=== PATIENT | male | born 1955 | race Caucasian/White ===

== ENCOUNTER 2023-09-28 17:17 | Inpatient (IN) | payer MEDICARE, OTHER, SELFPAY ==
[2023-09-28] VITALS (34 sets, daily range): BP systolic 127–242; BP diastolic 49–162; BMI 38.0
[2023-09-28] MEDS: TRANDATE 10 MG IV (13:08)
[2023-09-28 13:21] LABS: % Basophils 1.1 % (0-2); % Eosinophils 3.6 % (0-6); % Immature Granulocytes 0.3 % (0-0.5); % Lymphocytes 32.7 % (20.5-51.1); % Monocytes 6.8 % (1.7-9.3); % Neutrophils 55.5 % (42.2-75.2); Absolute Basophils 0.1 10^3/uL (0-0.2); Absolute Eosinophils 0.4 10^3/uL (0-0.7); Absolute Lymphocytes 3.3 10^3/uL (1.2-3.4); Absolute Monocytes 0.7 10^3/uL (0.1-0.6); Absolute Neutrophils 5.5 10^3/uL (1.4-6.5); Hematocrit 45.6 % (39.0-52.0); Hemoglobin 16.6 g/dL (13.0-18.0); Mean Corp Hgb Conc. 36.4 g/dL (33.0-37.0); Mean Corpuscular Hgb 31.1 pg (27.0-31.0); Mean Corpuscular Volume 85.6 fL (80.0-94.0); Mean Platelet Volume 10.9 fL (7.4-10.4); Nucleated Red Blood Cells % 0 % (-); Platelet Count 217 10^3/uL (130-400); Red Blood Cell Count 5.33 10^6/uL (4.70-6.10); Red Cell Dist. Width 12.8 % (11.5-14.5)
[2023-09-28 13:30] LABS: ALT (SGPT) 26 U/L (0-50); AST (SGOT) 19 U/L (17-59); Albumin 4.1 g/dl (3.5-5.0); Alkaline Phosphatase 95 U/L (38-126); Blood Urea Nitrogen 15 mg/dl (9-20); Calcium 9.4 mg/dl (8.4-10.2); Carbon Dioxide 28 mmol/L (22-30); Glucose 291 mg/dl (70-99); Total Bilirubin 0.7 mg/dl (0.2-1.3); Total Protein 7.6 g/dl (6.3-8.2); eGFR > 60.00
[2023-09-28] MEDS: TRANDATE 20 MG IV (13:35)
[2023-09-28 13:41] LABS: Troponin I 0.017 ng/ml
[2023-09-28 13:50] LABS: Chloride 98 mmol/L (98-107); Potassium 3.5 mmol/L (3.5-5.1); Sodium 135 mmol/L (135-145)
--- NOTE | 2023-09-28 14:57 | ED.CVA ---
History of Present Illness
General
Chief Complaint: CVA/TIA Symptoms
Source: patient and spouse
Exam Limitations: none
Time Seen by Provider: 09/28/23 12:43
Onset of Stroke Symptoms
Onset of symptoms known: No
Time pt last seen normal is known: No
Travel History
Have you had any contact with someone who has COVID-19?: No
Do you have any symptoms of coronavirus? Fever > 100 degrees, chills, cough, shortness of breath, sore throat, loss of taste or smell, muscle aches, or headache?: No
History of Present Illness
History of Present Illness:
67-year-old male who presents after his has noticed over the last week that he has had episodes of slurred speech, difficulty walking and just lethargy. She states for period of time he has had episodes of falling asleep during daytime. She
states he will fall asleep during dinner with friends. Others have also noticed these changes. The patient states he feels fine. He specifically denies chest pain. He is aware that sometimes he falls asleep when he should not. The patient has
not seen a doctor in 13 years. states that 13 years ago they were concerned about his blood pressure and started him on an CELIO inhibitor. The patient states he started coughing so stopped it after 1 week and has not followed up since. They
also were concerned about his blood glucose. also states that he snores a lot. He often has apnea. He is not treated for obstructive sleep apnea. Patient specifically denies chest pain, motor weakness, headache.
Past History
Past History
ED Past Medical History: HTN and NIDDM
Social History
Tobacco: Non-smoker
Alcohol: None
Phy Exam
Physical Exam
Physical Exam:
CONSTITUTIONAL Patient alert and oriented to person, place and time. Well-appearing. Vital signs reviewed. Uncontrolled hypertension
HEAD atraumatic, normocephalic.
EYES eyelids normal to inspection, Pupils equally round and reactive to light, Extraocular muscles intact, Conjunctiva normal, Sclera normal.
NECK normal range of motion, Trachea midline, no jugular venous distention.
RESPIRATORY CHEST No respiratory distress noted, Chest expansion equal, Bilateral breath sounds clear.
CARDIOVASCULAR regular rate and rhythm, Heart sounds normal.
ABDOMEN abdomen nontender, Bowel sounds normal. No distention.
BACK normal inspection, no obvious deformities
UPPER EXTREMITY range of motion normal, Motor strength normal, no cyanosis, no edema.
LOWER EXTREMITY range of motion normal, Motor strength normal, no cyanosis, no edema.
NEURO Speech normal, No focal motor deficits, [place] coma scale 15, Memory normal, Cranial Nerves intact to screening exam. No pronator drift. Normal [id number]
SKIN skin warm, dry, and normal in color.
PSYCHIATRIC patient oriented to person place and time, Normal affect.
Course
Orders/Labs/Results
Orders:
Orders
09/28/23 Lunch
1800 calorie (15 carb) Diabetic
At Your Request: Full Participation
09/28/23 12:56
CT Head W/o Iv Contrast Urgent
Comment:
Reason For Exam: hypertensive emergency, speech changes
Cardiac Monitoring- Treatment ONCE
09/28/23 12:57
Electrocardiogram (*1) Stat
Reason for Study: Other
Other Reason for Exam: neuro symptoms
EKG- Treatment ONCE
Labetalol HCl [Trandate] 10 mg IV NOW STA
09/28/23 13:05
Complete Blood Count/With Diff Urgent
Comprehensive Metabolic Panel Urgent
Glycohemoglobin (HgbA1c) Urgent
Troponin I Urgent
09/28/23 13:32
Labetalol HCl [Trandate] 20 mg IV NOW STA
09/28/23 14:02
Nicardipine 40 mg/200 ml [Cardene] 40 mg in 200 ml IV NOW
Initial dose in mg/hr, then titrate:: 5
Titrate to keep:: BP < 180/105 mmHg
Titrate by mg/hr:: 2.5 mg/hr
Frequency of titrations (minutes):: 5-15 minutes
Maximum dose in mg/hr:: 15
Begin to taper infusion when:: Remained at goal for 2hrs
Taper by mg/hr:: 2.5 mg/hr
Frequency of taper (minutes) if patient maintains goal:: 15-30 minutes
Taper to off?: Yes
If infusion off & no longer maintaining goal:: Contact Provider
09/28/23 15:23
Add On- LAB Routine
Tests Added?: A1c
09/28/23 16:58
Admit/Transfer Patient As Directed
Co-Sign Provider:
Level of Care: Inpatient admission
Assign to:: IMU- Intermediate Care
Physician / Group: Kenzie Perez
Diagnosis: Hypertensive Urgency/Emergency
Reason for Hospitalization: Hypertensive Urgency/Emergency
Expected length of stay greater than two midnights?: Yes
ELOS- Estimated Length of Stay in days: 2
I certify the patient meets the requirements for IP care: Yes
09/28/23 16:59
Code Status As Directed
Resuscitation Status: Full Code
09/28/23 17:06
Dextrose 50%-Water [Dextrose 50% Syringe] 12.5 grams IV [id number] PRN
Glucagon [GlucaGen] 1 mg IM PRN PRN
Bedside Glucose Monitoring As Directed
Frequency: AC&HS
Additional Instructions:: Change to q6h if pt on TPN, tube feeding or not eating
09/28/23 17:59
Acetaminophen [Tylenol] 650 mg PO Q4HPRN PRN
Bisacodyl [Dulcolax] 10 mg RECTAL [id number] PRN
Docusate W/Senna [Senokot-S] 1 tablet PO BIDPRN PRN
Nicardipine 40 mg/200 ml [Cardene] 40 mg in 200 ml IV PER PROTOCOL
Currently infusing. Continue current dose and titrate:: Yes
Titrate to keep:: SBP 140 - 160 mmHg
Titrate by mg/hr:: 2.5 mg/hr
Frequency of titrations (minutes):: 5-15 minutes
Maximum dose in mg/hr:: 15
Begin to taper infusion when:: Remained at goal for 2hrs
Taper by mg/hr:: 2.5 mg/hr
Frequency of taper (minutes) if patient maintains goal:: every 15-30 minutes
Taper to off?: Yes
If infusion off & no longer maintaining goal:: Contact Provider
Polyethylene Glycol Powder [Miralax] 17 grams PO DAILYPRN PRN
09/28/23 17:59
Activity As Directed
Activity Level: With Assistance
Neurological Checks As Directed
Frequency: q4h
Additional Instructions:: Q4H while awake
Precautions As Directed
Type of Precautions: Other
Comment: fall precautions
Vital Signs As Directed
Frequency: Per unit guidelines
O2 Therapy [RESP] Routine
Titrate/Wean O2 to maintain O2 sat greater than (%): 92
Pulse Ox/nocturnal-trend w prt [RESP] Routine
Quantity: 1
Desired Oxygen Setting: room air
Ot Eval And Treat Routine
Pt Eval And Treat Routine
Activity Level: With Assistance
DX Deep Vein Thrombosis Video Routine
09/28/23 18:00
Aspirin Chewable [Low Strength Aspirin] 81 mg PO DAILY
Atorvastatin [Lipitor] 40 mg PO QPM
Enoxaparin Sodium [Lovenox] 40 mg SC QPM
09/28/23 20:16
Venous Blood Gas Routine
%Oxygen/Room Air: 92
09/29/23 06:00
Basic Metabolic Panel IN AM
Complete Blood Count/No Diff IN AM
Lipid Profile [Cardiovascular Evaluation] IN AM
Magnesium IN AM
09/29/23 07:30
Insulin Aspart Corrective Low [Novolog Flexpen-Low Resistance] See Protocol SC AC
09/30/23 06:00
Basic Metabolic Panel IN AM
Complete Blood Count/No Diff IN AM
Magnesium IN AM
10/01/23 06:00
Basic Metabolic Panel IN AM
Complete Blood Count/No Diff IN AM
Magnesium IN AM
10/02/23 06:00
Basic Metabolic Panel IN AM
Complete Blood Count/No Diff IN AM
Magnesium IN AM
10/03/23 06:00
Basic Metabolic Panel IN AM
Complete Blood Count/No Diff IN AM
Magnesium IN AM
10/04/23 06:00
Basic Metabolic Panel IN AM
Complete Blood Count/No Diff IN AM
Magnesium IN AM
10/05/23 06:00
Basic Metabolic Panel IN AM
Complete Blood Count/No Diff IN AM
Magnesium IN AM
Abnormal Lab Results
09/28/23
13:05
MCH 31.1 H pg
(27.0-31.0)
MPV 10.9 H fL
(7.4-10.4)
Absolute Monos (auto) 0.7 H 10^3/uL
(0.1-0.6)
Glucose 291 H mg/dl
(70-99)
09/28/23 13:05
09/28/23 13:05
Vital Signs
Initial and Last Documented VS:
Initial Vital Signs
Temp Pulse Resp BP Pulse Ox
98.2 F 81 20 242/162 96
09/28/23 11:55 09/28/23 11:55 09/28/23 11:55 09/28/23 11:55 09/28/23 11:55
Last Documented Vital Signs
Temp Pulse Resp BP Pulse Ox
98.6 F 72 15 153/93 93
09/28/23 20:19 09/28/23 17:30 09/28/23 17:30 09/28/23 17:30 09/28/23 17:30
MDM/Problems Addressed
MDM/Problems Addressed:
Hypertensive emergency, obstructive sleep apnea, hyperglycemia
*Radiology
Radiology exam reviewed: preliminary read by ED provider (No obvious bleeding on CT) and radiology read reviewed
*Pulse Oximetry
Patient hypoxic: no
*EKG
Interpreted by ED Provider?: Yes
Interpretation: abnormal
Rate: normal
Rhythm: sinus
QRS Pattern: left vent hypertrophy
Ischemia: non-specific ST changes
*[employer] Interpretation
Rate: normal
Interpretation: normal
Rhythm: sinus
*Critical Care Note
Total Time (30-74mins, 75-104mins- exclusive of procedures): 40 minutes
Data Reviewed
Source: patient and family
Prescriptions/Medications Considered But Not Given:
Labetalol drip but will move forward with Cardene.
Patient Management
Discussion with other providers: Hospitalist
Escalation/DeEscalation of care consider admission/obs:
67-year-old male who presents with variety of symptoms. Suspect much of his symptoms related to uncontrolled hypertension. In addition, patient has severe obstructive sleep apnea. Mild improvement after IV labetalol. Initiate drip. Admit
ED Attending Note
-
Portions of this chart may have been created with voice recognition software.� Occasional wrong word or��sound alike� substitutions may have occurred due to the inherent limitations of voice recognition software.
Discharge Plan
Departure
Patient Disposition: Admit
Date of Disposition: 09/28/23
Time of Disposition: 15:06
Admit to: Telemetry
Presentation/result/management discussed w/ accepting MD/DO: Hospitalist
Discharge Problem:
Hypertensive emergency, Obstructive sleep apnea, Diabetes mellitus, new onset
Interventions
Interventions:
*Risk Screen - Suicide Last Done: 09/28/23 11:55
*General Assessment Last Done: 09/28/23 11:55
*Neglect/Abuse Screening Last Done: 09/28/23 11:55
ED- Fall Risk Assessment Last Done: 09/28/23 17:38
*ED COVID-19 Vaccine History Last Done: 09/28/23 17:38
*Nursing Disposition Last Done: 09/28/23 17:38
ED- Pulmonary Assessment Last Done: 09/28/23 17:40
ED- Neurological Assessment Last Done: 09/28/23 14:53
ED- Cardiac Assessment Last Done: 09/28/23 14:53
Discharge Date and Time
Discharge Date/Time: 09/28/23 17:40
[2023-09-28] MEDS: CARDENE 200 IV ×2 (15:00→21:18)
--- NOTE | 2023-09-28 15:29 | HPS.HSE ---
Family Physician
-
Family Physician: Toni Goldberg
Chief Complaint
-
Altered mental status
History of Present Illness
67 male history hypertension obesity lost to follow-up has not seen a doctor in 13 years brought in by family due to concerns altered mental status lethargy falling asleep in the middle of the day slurring speech progressive for the last month
acutely worsening over the last week. Denies headache lightheadedness fevers chills nausea vomiting diarrhea constipation chest abdomen pain palpitations. Reports polyuria polyphagia polydipsia. also reports severe snoring at night patient
occasionally stops breathing while sleeping. Never formally diagnosed with sleep apnea but strongly suspected. ED eval was significant for hypertensive urgency/emergency initial blood pressure 242/162. Labetalol was attempted twice without
effect. Patient was placed on Cardene gtt. with subsequent improvement. Rest of vital signs stable afebrile on room air. EKG sinus rhythm with first-degree block nonspecific ST-T abnormalities. CT head noted no acute abnormalities signs of
chronic microvascular ischemic disease possible chronic infarct/ex vacuo dilatation right parietal lobe. NIH scale 0 no significant signs of stroke at this time.
Medical History
Past Medical History
Past Medical History: Reports Other (As above)
Past Surgical History: Reports Other (As above)
Social History
Tobacco: Former Smoker
Alcohol: Occasional
Drug: None
Personal:
Living: With Family
Family History
Family History: Diabetes, Hypertension and Other (Mother and father had diabetes and hypertension, aunt of stroke in her 60s)
Allergies / Home Medications
Allergies reflects when Allergies were last updated in [facility].
Home Medications with original date entered in [facility]
Allergy/Medication List:
Allergies
Allergy/AdvReac Type Severity Reaction Status Date / Time
No Known Allergies Allergy Verified 09/28/23 12:00
Home Medications
omega 1-wij-djv-fish oil 1,000 mg (120 mg-180 mg) capsule (Fish Oil) 1 cap PO DAILY 09/28/23
Review of Systems
-
A 12 point ROS was completed and negative except as noted: Yes
Constitutional: Reports Other (as below)
Physical Exam
Vital Signs
Vital Signs
Temp Pulse Resp BP Pulse Ox
98.2 F 68 17 186/111 93
09/28/23 11:55 09/28/23 14:45 09/28/23 14:45 09/28/23 14:45 09/28/23 14:45
Physical Exam
General: Other (as below)
Laboratory Results
-
09/28/23 13:05
09/28/23 13:05
Laboratory Results
Total Bilirubin 0.7 mg/dl (0.2-1.3) 09/28/23 13:05
AST 19 U/L (17-59) 09/28/23 13:05
ALT 26 U/L (0-50) 09/28/23 13:05
Alkaline Phosphatase 95 U/L (38-126) 09/28/23 13:05
Troponin I 0.017 ng/ml 09/28/23 13:05
Impression/Plan
-
ROS
General: Denies fever chills night sweats unexpected weight loss
Neuro: Reports lethargy daytime sleepiness intermittent slurring of speech gait disturbance denies falls
Psych: denies depression hallucinations confusion manic episodes
Endocrine: Reports polyuria polydipsia polyphagia
HEENT: Denies blindness visual disturbances epistaxis reports significant snoring at night occasionally stops breathing while sleeping
Pulmonary: denies coughing hemoptysis sneezing sob dyspnea on exertion
Cardiovascular: denies chest pain palpitations leg swelling
Hematology: denies signs symptoms of anemia easy bruising/bleeding
Gastrointestinal: denies nausea vomiting diarrhea constipation hematemesis hematochezia melena
Genito-Urinary: denies retention incontinence dysuria
Musculoskeletal: denies joint pain weakness
Dermatology: denies rash laceration bruising
Physical Exam
General: No pallor, cyanosis, or jaundice.
HEENT: Throat clear. PERRLA Normocephalic atraumatic
NECK: Supple. No JVD Carotid Bruits
RESPIRATORY: Lungs clear to auscultation. No crackles wheezes stridor
CVS: S1, S2 normal. RRR. No murmur, rub or gallop.
ABDOMEN: Soft, non-tender. No distension. BS+/normal.
EXTREMITIES: No peripheral cyanosis or edema. strength equal all ext's 5/5
BAGEL MAKER: AOx3. No focal deficits. Finger to nose and heel to jordan tests wnl
IMPRESSION:
67 male history hypertension obesity lost to follow-up has not seen a doctor in 13 years brought in by family due to concerns altered mental status lethargy falling asleep in the middle of the day slurring speech progressive for the last month
acutely worsening over the last week. Denies headache lightheadedness fevers chills nausea vomiting diarrhea constipation chest abdomen pain palpitations. Reports polyuria polyphagia polydipsia. also reports severe snoring at night patient
occasionally stops breathing while sleeping. Never formally diagnosed with sleep apnea but strongly suspected. ED eval was significant for hypertensive urgency/emergency initial blood pressure 242/162. Labetalol was attempted twice without
effect. Patient was placed on Cardene gtt. with subsequent improvement. Rest of vital signs stable afebrile on room air. EKG sinus rhythm with first-degree block nonspecific ST-T abnormalities. CT head noted no acute abnormalities signs of
chronic microvascular ischemic disease possible chronic infarct/ex vacuo dilatation right parietal lobe. NIH scale 0 no significant signs of stroke at this time.
PLAN:
#Hypertensive urgency emergency
#CT head notes chronic microvascular ischemic disease possible chronic infarct right parietal lobe
IMU admit
Continue Cardene gtt. goal SBP 140-160, avoid overcorrection due to likely chronic uncontrolled hypertension for years
Cardio eval
Neurochecks every 4 while awake
NIH scale per protocol
Aspirin statin
Follow-up a.m. lipid panel
#Hyperglycemia suspect diabetes
#Likely metabolic syndrome
#Obesity
Follow-up A1c
Low-dose sliding scale for now
#Likely obstructive sleep apnea
Check VBG, will consider bedtime CPAP or BiPAP if pCO2 is elevated
Outpatient sleep study recommended
Checking nocturnal saturation study
#Obesity
DVT prophylaxis Lovenox
Full code
Discussed with patient, patient's Leeanne, and patient's Daughter Olivier
I spent a total of 85 minutes with the patient or on the floor. More than 50% of this time involved counseling and coordination of care.
--- NOTE | 2023-09-28 18:10 | PTCARENOTE ---
Rec'd pt from ER on cardene gtt. Goal to maintain SBP 140-160...see intervention. Pt rec'd A&Ox3. Pleasant. Denies any pain. NIHSS 0...no deficits noted upon arrival. BACON's. S1 S2 reg w/ NSR on monitor. +PP. No edema. On r/a...sats 93%.
Lungs clear. Abdomen round...+BS. Urinal at bedside. Skin intact. 20P LAC w/ cardene gtt infusing. VS documented. Diet ordered...po meds given w/o issue. at bedside...all questions answered and ICU contact card provided. Call meléndez
within reach. Will continue to monitor.
[2023-09-28 18:29] LABS: Glucose - Point of Care 291 mg/dl (70-99)
[2023-09-28] MEDS: LIPITOR 40 MG PO (18:41)
[2023-09-28] MEDS: LOW STRENGTH ASPIRIN 81 MG PO (18:41)
[2023-09-28] MEDS: LOVENOX 40 MG SC (18:42)
[2023-09-28] MEDS: NOVOLOG FLEXPEN-LOW RESISTANCE 3 UNITS SC (18:43)
[2023-09-28 20:23] LABS: Venous Blood Gas B.E. 1.9 mmol/L (-4 to +4); Venous Blood Gas HCO3 25.7 mmol/L (22-27); Venous Blood Gas pCO2 37 mmHg (35-48); Venous Blood Gas pH 7.45 (7.32-7.43); Venous Blood Gas pO2 175 mmHg (30-50)
[2023-09-28 23:53] LABS: Glucose - Point of Care 361 mg/dl (70-99)
[2023-09-29] VITALS (84 sets, daily range): BP systolic 107–202; BP diastolic 56–135; PULSE 78–92; BMI 38.7
[2023-09-29] MEDS: NOVOLOG FLEXPEN 10 UNITS SC (00:05)
[2023-09-29] MEDS: CARDENE 200 IV ×3 (01:26→20:48)
[2023-09-29 02:36] LABS: Glucose - Point of Care 278 mg/dl (70-99)
[2023-09-29] MEDS: NOVOLOG FLEXPEN 7 UNITS SC (03:32)
--- NOTE | 2023-09-29 05:22 | PTCARENOTE ---
Cardene gtt turned off per protocol.
[2023-09-29 05:45] LABS: Hematocrit 43.6 % (39.0-52.0); Hemoglobin 15.6 g/dL (13.0-18.0); Mean Corp Hgb Conc. 35.8 g/dL (33.0-37.0); Mean Corpuscular Hgb 30.5 pg (27.0-31.0); Mean Corpuscular Volume 85.2 fL (80.0-94.0); Mean Platelet Volume 10.8 fL (7.4-10.4); Platelet Count 220 10^3/uL (130-400); Red Blood Cell Count 5.12 10^6/uL (4.70-6.10); Red Cell Dist. Width 12.6 % (11.5-14.5); White Blood Cell Count 10.7 10^3/uL (4.8-10.8)
[2023-09-29 05:57] LABS: Blood Urea Nitrogen 22 mg/dl (9-20); Calcium 9.5 mg/dl (8.4-10.2); Carbon Dioxide 24 mmol/L (22-30); Chloride 100 mmol/L (98-107); Estimated Creatinine Clearance 96 ml/min; Glucose 220 mg/dl (70-99); HDL Cholesterol 34 mg/dl; LDL Cholesterol, Calculated 123 mg/dl; Magnesium 1.7 mg/dl (1.6-2.3); Sodium 135 mmol/L (135-145); Total Cholesterol 219 mg/dl (50-199); Triglyceride 314 mg/dl (10-149); Very Low Density Lipoprotein 62 mg/dl (0-30); eGFR > 60.00
[2023-09-29] MEDS: KCL 40 MEQ PO (06:35)
--- NOTE | 2023-09-29 07:16 | CON.INTV ---
Consultation
Consultation Request
Date/Time Consultation Requested: 09/29/23
Date/Time Consultation Performed: 09/29/23
Performing Provider: See
Reason for Consultation: ICU
Medical History
-
History of Present Illness:
67 year old male with history of hypertension, obesity, medical noncompliance (has not seen a doctor in 13 years) presenting to ER for altered mental status/lethargy/slurring speech over the past week. He had EDS noted with snoring/apneas as
well, never had a sleep study. Does report polyuria, polydipsia.
In ER, initial blood pressure noted to be 242/162. Labetalol was attempted twice without effect. Patient was placed on Cardene gtt with subsequent improvement. EKG sinus rhythm with first-degree block nonspecific ST-T abnormalities. CT head
noted no acute abnormalities signs of chronic microvascular ischemic disease possible chronic infarct/ex vacuo dilatation right parietal lobe.
He is a former smoker, 1/2-1 PPD for 30 years, quit around age 52.
Drinks about 2-3 beers daily.
Admitted to ICU for cardene gtt.
Past Medical History
Past Medical History: Other (see list below)
Social History
Tobacco: Former Smoker
Alcohol: Daily
Drug: None
Family History
Family History: Reviewed & Not Pertinent
Allergies / Home Medications
Allergies
Allergy/AdvReac Type Severity Reaction Status Date / Time
No Known Allergies Allergy Verified 09/28/23 12:00
Home Medications
�Medication �Instructions �Recorded �Confirmed �Last Taken �Type
omega 6-ukj-emh-fish oil 1,000 mg 1 cap PO DAILY 09/28/23 09/28/23 09/27/23 History
(120 mg-180 mg) capsule (Fish Oil)
Review of Systems
-
History Source: Patient
All other systems: Negative unless noted
Vitals / Labs / Diagnostic Testing
Vital Signs
Temp Pulse Resp BP Pulse Ox
98.3 F 73 15 132/92 96
09/29/23 05:21 09/29/23 05:15 09/29/23 05:15 09/29/23 05:00 09/29/23 05:15
Lab Data
09/29/23 05:16
09/29/23 05:16
Diagnostic Testing:
Physical Exam
-
HEENT: Normocephalic, Anicteric and Moist Mucous Membranes
Cardiovascular: S1/S2 and Regular Rhythm
Respiratory: Clear and Non-Labored Respirations
GI: Soft, Non Distended and Non Tender
Neurology: Awake, Alert, Oriented and AO x 3
Skin: Warm, Dry and Good Color
General: Comfortable and Other (NAD)
Assessment
-
67 year old male with history of hypertension, obesity, medical noncompliance (has not seen a doctor in 13 years) presenting to ER for altered mental status/lethargy/slurring speech over the past week. In ER, initial blood pressure noted to be
242/162. Labetalol was attempted twice without effect. Patient was placed on Cardene gtt with subsequent improvement. CT head noted no acute abnormalities signs of chronic microvascular ischemic disease possible chronic infarct/ex vacuo
dilatation right parietal lobe. Admitted to ICU for cardene gtt.
Hypertensive emergency on cardene gtt
Possible old CVA noted on imaging
Hyperglycemia suspect diabetes
Suspect MITCHEL, + snoring/apneas/EDS
Slurred speech
Difficulty ambulating/lethargy
Hypokalemia
HLD
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
Obesity, BMI 38
Does not follow with medical care routinely
Plan
No current signs of metabolic encephalopathy or MS changes/following commands
CT head notes chronic microvascular ischemic disease possible chronic infarct right parietal lobe
Aspirin/statin
Denies pain at this time.
Pain/sedation: PRN
RASS goals: 0
Drinks about 2-3 beers daily, MSAS protocol as needed
Hypertensive emergency noted, placed on Cardene gtt.
Cardio eval
Cardiac history reviewed--HTN, tried on Lisinopril as OP
No prior ECHO obtained in past, can obtain new baseline study
Oxygen needs: stable on RA
Prior history of lung disease: none noted, smoking history noted
COPD suspected, can obtain PFT as OP
He is a former smoker, 1/2-1 PPD for 30 years, quit around age 52.
>15 years/quit date, does not qualify for yearly screening
Supplemental O2 as indicated to maintain sats > 89%
Overnight O2 study reviewed, will need PSG as OP for snoring/EDS/apneas
Advance diet
Aspiration precautions, HOB > 30 degrees
Speech therapy eval can be considered if at elevated risk
GI prophylaxis if indicated for mechanical ventilation >48 hours, prior history of GERD, stress ulcer formation in the critically ill
Creat at baseline, no history of renal disease
Void trials
Follow urine output, critical I/Os
Replete electrolytes as needed--replete K
No signs/symptoms suspicious for infectious etiology at this time
Observe off antibiotics for now
Follow fever trend, WBC count
CBC stable, no signs of bleeding or coagulopathy.
DVT prophylaxis as assessed based on risk, including mechanical SCDs
Can transfuse if indicated for Hb <7, plt < 10
No prior h/o diabetes or thyroid disease/known
Continue accuchecks PRN/SS coverage if needed
HbA1c 10.9%
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
If off cardene gtt, can likely transfer to tele
We will arrange OP FU for sleep
Diagnostic Data
Chest X-Ray:
CT Scan: HEAD 09/28/23- No acute intracranial abnormality. Moderate hypoattenuation and heterogeneity of the periventricular and deep white matter, most likely secondary to chronic microvascular ischemic disease. More focal area of hypoattenuation
within the posterior right parietal lobe which may represent a chronic infarct/ex vacuo dilatation.
Echo:
PFT's:
Reports and relevant images were personally reviewed.
-----
Critical care time 75 mins -- this includes review of history, physical exam, medications, hemodynamic/ventilator parameters, laboratory data, imaging and discussion with house staff, pharmacy, respiratory therapy, sandfill operator, and nursing.
[2023-09-29 08:15] LABS: Glucose - Point of Care 255 mg/dl (70-99)
--- NOTE | 2023-09-29 08:30 | PTCARENOTE ---
Received pt @ change of shift. Pt. drowsy, awakens to verbal stimuli; Ox3/forgetful @ x's. NIH completed w off going RN- see flow sheet. SR w 1st degree ABV. Cardene gtt infusing to keep SBP 140-160- see flow sheet. SpO2 96% on RA. +BS, abd
round/obese. Cont b/b. #20 R AC w cardene gtt infusing. Instructed on how to report care concerns and call meléndez in reach. Bed alarm active.
[2023-09-29] MEDS: NOVOLOG FLEXPEN-HIGH RESISTANCE 7 UNITS SC (09:05)
[2023-09-29] MEDS: LOW STRENGTH ASPIRIN 81 MG PO (09:09)
--- NOTE | 2023-09-29 09:17 | W.PN.HOSP.TC ---
Today's Communication/Plan
-
see bold
Assessment / Plan
Assessment / Plan
HPI: 67 male history hypertension obesity lost to follow-up has not seen a doctor in 13 years brought in by family due to concerns altered mental status lethargy falling asleep in the middle of the day slurring speech progressive for the last month
acutely worsening over the last week. Denies headache lightheadedness fevers chills nausea vomiting diarrhea constipation chest abdomen pain palpitations. Reports polyuria polyphagia polydipsia. also reports severe snoring at night patient
occasionally stops breathing while sleeping. Never formally diagnosed with sleep apnea but strongly suspected. ED eval was significant for hypertensive urgency/emergency initial blood pressure 242/162. Labetalol was attempted twice without
effect. Patient was placed on Cardene gtt. with subsequent improvement. Rest of vital signs stable afebrile on room air. EKG sinus rhythm with first-degree block nonspecific ST-T abnormalities. CT head noted no acute abnormalities signs of
chronic microvascular ischemic disease possible chronic infarct/ex vacuo dilatation right parietal lobe. NIH scale 0 no significant signs of stroke at this time.
#Hypertensive urgency emergency
#CT head notes chronic microvascular ischemic disease possible chronic infarct right parietal lobe
Appreciate cardiology and telemetry nurse input
Blood pressure now controlled on Cardene drip
Wean Cardene drip, cardiology started amlodipine 2.5 mg daily, valsartan 40 mg p.o. twice daily
Check B12/TSH
#Hyperlipidemia
Start atorvastatin 40 mg at bedtime
#Hypokalemia
Repleted by IV, magnesium okay
Recheck a.m.
#New onset type 2 diabetes, hemoglobin A1c 10.9
Consult diabetes nurse practitioner, Lantus started at 15 units at bedtime, NovoLog 5 units AC 3 times daily
Sliding scale insulin, diabetes education
#Likely obstructive sleep apnea
Outpatient sleep study recommended
#Obesity due to excess calories
Affects all aspects of care
DVT prophylaxis Lovenox
Full code
Updated at bedside 09/28
Total time spent to see the patient on the floor, examine the patient, review data and lab results, discuss treatment plan with patient, nursing staff around 50 minutes.
Physical Exam
General: Obese, no acute distress
HEENT: Normocephalic, Atraumatic, EOMI, MMM
Respiratory: Clear to Auscultation bilaterally
Cardiac: Normal S1/S2, Regular Rate and Rhythm
GI: Soft, Nontender, Nondistended, Normal Bowel Sounds
Extremities: No Clubbing, Cyanosis, or Edema
Neuro: Nonfocal/Grossly Intact
Psych: Calm, Cooperative
Derm: No Visible lesions
Anticipated Discharge: 24 - 48 hours
Subjective/Interval History
-
Date of Service: September 29, 2023
Patient's mentation much improved, almost back to baseline per . He is still slow to respond. No fever, no vomiting.
Objective Data
-
Labs:
Laboratory Results
09/29/23
05:16
WBC 10.7
Hgb 15.6
Hct 43.6
Plt Count 220
Sodium 135
Potassium 3.0 L
Chloride 100
Carbon Dioxide 24
BUN 22 H
Creatinine 1.0
Glucose 220 H
Calcium 9.5
Vital Signs:
Vital Signs
Temp Pulse Resp BP Pulse Ox
97.8 F 73 15 132/92 96
09/29/23 07:20 09/29/23 05:15 09/29/23 05:15 09/29/23 05:00 09/29/23 05:15
I&O
09/28/23 09/29/23 09/30/23
06:59 06:59 06:59
Intake Total 387.5 / 400.0 12. / 12.5
Output Total 720 / 720
Balance -332.5 / -320.0 12. 12.5
--- NOTE | 2023-09-29 09:34 | CON.CAR ---
Addendum entered and electronically signed by Dario Flores MD 09/29/23 12:14:
I saw and examined the patient.
The BRIM POUNCER's note was reviewed and I agree with the note.
Comment: No chest pain or dyspnea. Troponins negative. No dynamic ST or T wave changes. We will assist in managing his hypertension. We initiated statin therapy. Echo ordered. Defer any neurologic workup to primary service.
Initial potassium 3.5 but on repeat 3. For caution sake we will check Roger renin ratio but may more be related to diabetes and hydration.
Original Note:
Consultation
Consultation Request
Date/Time Consultation Requested: 09/28/2023 17:20
Date/Time Consultation Performed: 09/29/2023 09:40
Requesting Provider: Dr. Perez
Performing Provider: DAVID Vizcarra for Dr. Flores
Reason for Consultation: Hypertensive urgency/emergency
Medical History
-
Chief Complaint: Altered mental status
History of Present Illness:
This patient is a 67-year-old male who has not had regular medical care for about 13 years but a known history of hypertension and obesity who presented to the emergency department with change in mental status. He was brought in by his . She
reports over the last several months he has had issues with slurred speech, shuffling gait, and lethargy. His states he would have intermittent episodes of slurred speech that appeared almost as if he could not control his tongue. His gait
has also slowed down and he would shuffle his feet. Regarding his lethargy, he would fall asleep even while he was talking. He also appears more forgetful. She states when he sleeps he stops breathing and has very loud snoring. His change in
mental status was new which prompted emergency department room visit. When he arrived he was found to have a blood pressure of 242/162. He did not have any response to intravenous labetalol and was started on a Cardene drip. EKG showed
first-degree AV block with LVH and nonspecific ST�T abnormalities. Head CT showed chronic microvascular ischemic disease versus chronic infarct/ex vacuo dilation of the right parietal lobe. NIH 0. Cardiology was consulted for blood pressure
management.
Past Medical History
Past Medical History: HTN
Social History
Tobacco: Former Smoker
Alcohol: Occasional
Drug: None
Personal:
Living: With Family
Employment: Retired
Family History
Family History: Reviewed & Not Pertinent (Denies early CAD and SCD.)
Allergies / Home Medications
Allergy/AdvReac Type Severity Reaction Status Date / Time
No Known Allergies Allergy Verified 09/28/23 12:00
�Medication �Instructions �Recorded �Confirmed �Type
omega 1-suq-ilm-fish oil 1,000 mg 1 cap PO DAILY Supplement 09/28/23 09/28/23 History
(120 mg-180 mg) capsule (Fish Oil)
Review of Systems
-
History Source: Patient
All other systems: Negative unless noted
Constitutional: Fatigue
Respiratory: No Symptoms
Cardiac: No Symptoms
Endocrine: Polyuria and Polydipsia
Physical Exam
Vital Signs
Temp Pulse Resp BP Pulse Ox
97.8 F 73 15 132/92 96
09/29/23 07:20 09/29/23 05:15 09/29/23 05:15 09/29/23 05:00 09/29/23 05:15
Lab Results
09/29/23 05:16
09/29/23 05:16
Troponin I 0.017 ng/ml 09/28/23 13:05
Physical Exam
General: Well Developed, Well Nourished, No Apparent Distress and Comfortable
HEENT: Normocephalic, Anicteric and Moist Mucous Membranes
Respiratory: Clear and Non Labored Respirations
Cardiac: S1/S2 and Regular Rhythm
Breast: Deferred by me
GI: Soft, Non Tender, Non Distended and Normal Bowel Sounds
Rectal: Deferred by Provider
Genito-urinary: No Costovertebral Tender
Musculoskeletal: No Clubbing, No Cyanosis and No Edema
Skin: Warm and Dry
Neuro: AO x 3
Hematologic/Lymphatic: No Lymphadenopathy
Psych: Calm
Impression / Plan
-
HTN Emergency
-He presented with change in mental status, hypertensive encephalopathy?
-On Cardene, start Valsartan 40mg BID & amlodipine and anticipate discontinuation of Cardene drip
-Self discontinued ACEi 13 years ago due to a cough
-LVH on EKG, echocardiogram ordered
Change in mental status, with associated shuffling gait, lethargy, and slurred speech, per primary
Type II DM, with hyperglycemia, new diagnosis, Hgba1c pending, per primary
Dyslipidemia, started on atorvastatin 40mg, triglycerides will likely improve with diabetic management
Suspected MITCHEL
Obesity, BMI 38, he would benefit from weight loss
Data Reviewed
-
EKG: Report Reviewed by me (Sinus rhythm, first degree AV block, LVH, non specific ST abnormality, rate 70)
CT Scan: Report Reviewed by me (Head: Moderate hypoattenuation and heterogeneity of the periventricular and deep white matter, most likely secondary to chronic microvascular ischemic disease. More focal area of hypoattenuation within the posterior
right parietal lobe which may represent a chronic infarct/ex vacuo dilatation.)
Labs: Labs Reviewed by me
[2023-09-29] MEDS: DIOVAN 40 MG PO ×2 (10:04→20:48)
[2023-09-29 10:09] LABS: Glycohemoglobin (HgbA1c) 10.9 % (4.0-5.6)
--- NOTE | 2023-09-29 11:52 | CM ---
CM following re: discharge planning.
Discussed in Rounds, reviewed pt's chart, met with pt.
Pt is a 67 year old male, admitted with primary dx of Hypertensive Urgency. PMH includes Obesity, sleep apnea.
Pt reports he lives with spouse 2SH, 2 steps to enter, has 2 supportive children. 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 No DME, VN or SNF history.
PCP: Toni Goldberg
Pharmacy: [facility]
D/c plan: home with anticipated no needs. Family to transport at discharge.
CM will follow with discharge plan updates as hospitalization progresses
[2023-09-29] MEDS: KCL 270 MEQ IV (12:23)
--- NOTE | 2023-09-29 12:30 | PTCARENOTE ---
Pt. worked w PT/OT, assisted x2 w RW to ambulate in room and into chair. Remains in chair. Tolerating meals. PO antihypertensives admin- see MAR. Remains on cardene gtt- see flow sheet, titrated/tapered per orders. Chair alarm active. @
bedside updated on plan of care.
[2023-09-29] MEDS: NORVASC 2.5 MG PO (12:53)
[2023-09-29 13:15] LABS: Glucose - Point of Care 276 mg/dl (70-99)
[2023-09-29] MEDS: NOVOLOG FLEXPEN 5 UNITS SC ×2 (14:54→17:25)
[2023-09-29] MEDS: NOVOLOG FLEXPEN-MODERATE RESISTANCE 5 UNITS SC (14:55)
[2023-09-29] MEDS: FOLVITE 1 MG PO (14:56)
[2023-09-29] MEDS: NOVOLOG FLEXPEN-HIGH RESISTANCE SC (14:59)
[2023-09-29] MEDS: NOVOLOG FLEXPEN-MODERATE RESISTANCE 3 UNITS SC (17:24)
--- NOTE | 2023-09-29 17:30 | PTCARENOTE ---
Cindyene gtt off @ [id number]-see flow sheet. Reassessed, no changes in previous assessments. Call medhat jasso in reach. Bed alarm active.
[2023-09-29 17:31] LABS: Glucose - Point of Care 208 mg/dl (70-99)
[2023-09-29] MEDS: LOVENOX 40 MG SC (18:08)
[2023-09-29] MEDS: LOPRESSOR 5 MG IV (18:08)
[2023-09-29] MEDS: LIPITOR 40 MG PO (18:08)
--- NOTE | 2023-09-29 19:42 | PTCARENOTE ---
rec'd patient. assessment as documented. oriented x3, handoff NIH 0. forgetful at times, bed alarm on. SR on monitor. SBP goal 140-160, PRN cardene gtt ordered as needed. on RA, denies SOB. pt repositions self in bed. call meléndez within reach, care
ongoing.
[2023-09-29] MEDS: VITAMIN B1 100 MG PO (20:48)
[2023-09-29 21:07] LABS: Glucose - Point of Care 200 mg/dl (70-99)
[2023-09-29] MEDS: LANTUS 0.149999999999999994 UNITS SC (21:11)
[2023-09-29] MEDS: ATIVAN 1 MG IV (23:25)
[2023-09-30] VITALS (51 sets, daily range): BP systolic 130–182; BP diastolic 84–141; BMI 38.7
[2023-09-30] MEDS: PRECEDEX 100 IV (00:25)
[2023-09-30] MEDS: ATIVAN 1 MG IV (00:25)
--- NOTE | 2023-09-30 00:47 | PTCARENOTE ---
pt reassessed. attempting to climb OOB, restless, difficult to redirect. PRN ativan given with no effect. ICU RESEARCH STATISTICIAN aware, precedex gtt ordered and initiated per protocol. now on 2L NC. cardene gtt restarted per protocol to maintain SBP between
140-160. bed alarm on.
[2023-09-30] MEDS: CARDENE 200 IV ×5 (02:23→22:19)
[2023-09-30 03:38] LABS: Hematocrit 41.7 % (39.0-52.0); Hemoglobin 15.4 g/dL (13.0-18.0); Mean Corp Hgb Conc. 36.9 g/dL (33.0-37.0); Mean Corpuscular Hgb 30.7 pg (27.0-31.0); Mean Corpuscular Volume 83.2 fL (80.0-94.0); Mean Platelet Volume 10.7 fL (7.4-10.4); Platelet Count 218 10^3/uL (130-400); Red Blood Cell Count 5.01 10^6/uL (4.70-6.10); White Blood Cell Count 13.5 10^3/uL (4.8-10.8)
[2023-09-30 04:33] LABS: Blood Urea Nitrogen 18 mg/dl (9-20); Calcium 9.2 mg/dl (8.4-10.2); Carbon Dioxide 25 mmol/L (22-30); Chloride 103 mmol/L (98-107); Estimated Creatinine Clearance 97 ml/min; Glucose 303 mg/dl (70-99); Magnesium 1.6 mg/dl (1.6-2.3); Sodium 135 mmol/L (135-145); eGFR > 60.00
[2023-09-30 04:51] LABS: TSH Reflex To Free T4 2.35 uIU/ml (0.47-4.68)
--- NOTE | 2023-09-30 05:00 | PTCARENOTE ---
pt reassessed, AM labs sent. cardene gtt titrated per SBP goal. precedex gtt off this morning. pt drowsy but arousable to voice, forgetful at times. care ongoing.
[2023-09-30 05:11] LABS: Vitamin B12 583 pg/ml (239-931)
[2023-09-30] MEDS: MAGNESIUM SULFATE 102 GRAMS IV (06:17)
--- NOTE | 2023-09-30 07:25 | W.PN.INTV ---
Addendum entered and electronically signed by Leeanne Cui DO 09/30/23 13:29:
agreeable to phenobarb taper, starting at mid dose
This would be less sedating and prevent seizures
Original Note:
Today's Communication / Plan
Recommendations
Questionable ETOH use, see note below
was agreeable to taper treatment for now
Continue to wean off BP meds/gtt, cards following
Neuro eval
Stop precedex
Assessment
-
67 year old male with history of hypertension, obesity, medical noncompliance (has not seen a doctor in 13 years) presenting to ER for altered mental status/lethargy/slurring speech over the past week. In ER, initial blood pressure noted to be
242/162. Labetalol was attempted twice without effect. Patient was placed on Cardene gtt with subsequent improvement. CT head noted no acute abnormalities signs of chronic microvascular ischemic disease possible chronic infarct/ex vacuo
dilatation right parietal lobe. Admitted to ICU for cardene gtt.
Hypertensive emergency on cardene gtt
Possible old CVA noted on imaging
Hyperglycemia suspect diabetes
Suspect MITCHEL, + snoring/apneas/EDS
Slurred speech
Difficulty ambulating/lethargy
Hypokalemia
HLD
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
Obesity, BMI 38
Does not follow with medical care routinely
Plan
Agitation overnight suggestive of ETOH w/d
CT head notes chronic microvascular ischemic disease possible chronic infarct right parietal lobe
Aspirin/statin
Denies pain at this time.
Pain/sedation: MSAS PRN
RASS goals: 0
Drinks about 2-3 beers dailythis was noted by patient
adamant that he does not drinksee note below
Consider neuro eval
Hypertensive emergency noted, placed on Cardene gtt.
Cardio eval--BP management ongoing
Cardiac history reviewed--HTN, tried on Lisinopril as OP
No prior ECHO obtained in past, can obtain new baseline study--reviewed stable
Oxygen needs: stable on RA
Prior history of lung disease: none noted, smoking history noted
COPD suspected, can obtain PFT as OP
He is a former smoker, 1/2-1 PPD for 30 years, quit around age 52.
>15 years/quit date, does not qualify for yearly screening
Supplemental O2 as indicated to maintain sats > 89%
Overnight O2 study reviewed, will need PSG as OP for snoring/EDS/apneas
Advance diet
Aspiration precautions, HOB > 30 degrees
Speech therapy eval can be considered if at elevated risk
GI prophylaxis if indicated for mechanical ventilation >48 hours, prior history of GERD, stress ulcer formation in the critically ill
Creat at baseline, no history of renal disease
Void trials
Follow urine output, critical I/Os
Replete electrolytes as needed--replete K
No signs/symptoms suspicious for infectious etiology at this time
Observe off antibiotics for now
Follow fever trend, WBC count
CBC stable, no signs of bleeding or coagulopathy.
DVT prophylaxis as assessed based on risk, including mechanical SCDs
Can transfuse if indicated for Hb <7, plt < 10
No prior h/o diabetes or thyroid disease/known
Continue accuchecks PRN/SS coverage if needed
HbA1c 10.9%
Diabetic CYTOGENETICS TECHNOLOGIST consult for management
If off cardene gtt, can likely transfer to tele
We will arrange OP FU for sleep
Family Discussions
See 09/30/23- angry/upset, yelling at staff about her 's drinking history. She is adamant he does not drink at all, maybe 1-2 drinks on the weekends and that if he did have drinks she would know. She feels he cannot possibly be drinking
without her knowledge and is upset that she must repeatedly say this to everyone. She is upset that he is 'labeled as an alcoholic.' She thinks he is too confused to be truthful about his history. He had told me yesterday that he smokes 1/2 PPD
and drinks 2-3 drinks almost every day, usually beers and states his has 2-3 glasses of wine as well. She does not believe this to be true. When asked her about stopping treatment in relationship to potential ETOH w/d and risk of
seizure/coma/ his now states if that she wants treatment. We will will proceed with treatment/taper in the event his history is true. This conversation was witnessed by CCRN, admin, CM and security.
Diagnostic Data
Chest X-Ray:
CT Scan: HEAD 09/28/23- No acute intracranial abnormality. Moderate hypoattenuation and heterogeneity of the periventricular and deep white matter, most likely secondary to chronic microvascular ischemic disease. More focal area of hypoattenuation
within the posterior right parietal lobe which may represent a chronic infarct/ex vacuo dilatation.
Echo: 09/29/23- LV ejection fraction is 70-75% by visual assessment. Moderate concentric left ventricular hypertrophy. Normal right ventricular size and function. Aortic valve sclerosis without stenosis.
Dilated aortic root with normal ascending aorta. No prior study available for comparison.
PFT's:
Reports and relevant images were personally reviewed.
-----
Critical care time 85 mins -- this includes review of history, physical exam, medications, hemodynamic/ventilator parameters, laboratory data, imaging and discussion with house staff, pharmacy, respiratory therapy, tattoo artist, and nursing.
Subjective Dataa
Subjective Data
Date of Service:
Date of Service: September 30, 2023
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
Subjective:
overnight developed acute agitation requiring multiple doses of ativan
started on precedex
tremors noted
at bedside
Objective Data
Data Reviewed
Vital Signs / I&O / Oxygen:
Vital Signs
Temp Pulse Resp BP Pulse Ox
98.4 F 58 13 148/88 96
09/30/23 04:14 09/30/23 06:30 09/30/23 06:30 09/30/23 06:30 09/30/23 06:30
Intake and Output
09/29/23 09/30/23 10/01/23
06:59 06:59 06:59
Intake Total 387.5 / 400.0 1494.5 / 1494.5
Output Total 720 / 720 810 / 810
Balance -332.5 / -320.0 684.5 / 684.5
SaO2 96
Nasal Cannula flow liters per 2
minute
Physical Exam
General: Comfortable and Other (NAD)
HEENT: Normocephalic, Anicteric and Moist Mucous Membranes
Cardiovascular: S1-S2 and Regular Rhythm
Respiratory: Clear and Non-Labored Respirations
GI: Soft, Non Distended and Non Tender
Neurology: Awake, Alert, Oriented, AO x 3, No Motor Deficits, Tremors and Other (mildly confused but able to answer questions)
Skin: Warm, Dry and Good Color
Labs/Micro/Reports
Lab Data
09/30/23 03:27
09/30/23 03:27
--- NOTE | 2023-09-30 07:47 | W.PN.HOSP.TC ---
Today's Communication/Plan
-
see bold
Assessment / Plan
Assessment / Plan
HPI: 67 male history hypertension obesity lost to follow-up has not seen a doctor in 13 years brought in by family due to concerns altered mental status lethargy falling asleep in the middle of the day slurring speech progressive for the last month
acutely worsening over the last week. Denies headache lightheadedness fevers chills nausea vomiting diarrhea constipation chest abdomen pain palpitations. Reports polyuria polyphagia polydipsia. also reports severe snoring at night patient
occasionally stops breathing while sleeping. Never formally diagnosed with sleep apnea but strongly suspected. ED eval was significant for hypertensive urgency/emergency initial blood pressure 242/162. Labetalol was attempted twice without
effect. Patient was placed on Cardene gtt. with subsequent improvement. Rest of vital signs stable afebrile on room air. EKG sinus rhythm with first-degree block nonspecific ST-T abnormalities. CT head noted no acute abnormalities signs of
chronic microvascular ischemic disease possible chronic infarct/ex vacuo dilatation right parietal lobe. NIH scale 0 no significant signs of stroke at this time.
#Hypertensive urgency emergency
#CT head notes chronic microvascular ischemic disease possible chronic infarct right parietal lobe
Appreciate cardiology and denial management representative input
Blood pressure now controlled on Cardene drip
Wean Cardene drip, increase amlodipine to 5 mg daily, valsartan 80 mg twice daily, cardiology also added hydrochlorothiazide 25 mg daily
#Subacute encephalopathy
B12/TSH normal
There is a questionable history of alcohol use, denies
Appreciate denial management representative input, his Precedex is changed to phenobarbital taper
Started on thiamine and folic acid
Neurology consulted
#History of old stroke on head CT
Started on aspirin 81 mg daily
#Hyperlipidemia
Started atorvastatin 40 mg at bedtime
#Hypokalemia
Repleted and resolved
#New onset type 2 diabetes, hemoglobin A1c 10.9
Diabetes nurse practitioner following, continue insulin adjustments
Sliding scale insulin, diabetes education
#Likely obstructive sleep apnea
Outpatient sleep study recommended
#Leukocytosis
Afebrile, no signs or symptoms of infection
Check chest x-ray and urinalysis for completeness sake
Monitor off antibiotics
#Obesity due to excess calories
Affects all aspects of care
DVT prophylaxis Lovenox
Full code
Updated at bedside 09/28
Total time spent to see the patient on the floor, examine the patient, review data and lab results, discuss treatment plan with patient, nursing staff around 51 minutes.
Physical Exam
General: Obese, no acute distress
HEENT: Normocephalic, Atraumatic, EOMI, MMM
Respiratory: Clear to Auscultation bilaterally
Cardiac: Normal S1/S2, Regular Rate and Rhythm
GI: Soft, Nontender, Nondistended, Normal Bowel Sounds
Extremities: No Clubbing, Cyanosis, or Edema
Neuro: Nonfocal/Grossly Intact
Psych: Calm, Cooperative
Derm: No Visible lesions
Anticipated Discharge: > 48 hours
Subjective/Interval History
-
Date of Service: September 30, 2023
Patient denies chest pain, denies shortness of breath. No fever, no vomiting.
Objective Data
-
Labs:
Laboratory Results
09/30/23
03:27
WBC 13.5 H
Hgb 15.4
Hct 41.7
Plt Count 218
Sodium 135
Potassium 4.0 D
Chloride 103
Carbon Dioxide 25
BUN 18
Creatinine 1.0
Glucose 303 H
Calcium 9.2
Vital Signs:
Vital Signs
Temp Pulse Resp BP Pulse Ox
97.4 F 58 13 148/88 96
09/30/23 07:45 09/30/23 06:30 09/30/23 06:30 09/30/23 06:30 09/30/23 06:30
I&O
09/29/23 09/30/23 10/01/23
06:59 06:59 06:59
Intake Total 387.5 / 400.0 1494.5 / 1634.0 139.5 / 139.5
Output Total 720 / 720 810 / 810
Balance -332.5 / -320.0 684.5 / 824.0 139.5 / 139.5
--- NOTE | 2023-09-30 08:00 | PTCARENOTE ---
Received pt @ change of shift. Drowsy, awakens to verbal stimuli. Mild speech slurring. NIH-2 for drowsiness/mild slurring. Confused/forgetful. Medicated w sedation meds overnight for increased MSAS. Current MSAS-2. Neuro checks maintained-
see flow sheet. Cardene gtt infusing- titrated/tapered to keep SBP between 140-160. PO antihypertensives admin w/out issue-see JUL. Bed alarm active. Pt. instructed on how to report care concerns and call meléndez in reach.
[2023-09-30 08:02] LABS: Glucose - Point of Care 364 mg/dl (70-99)
[2023-09-30] MEDS: NORVASC 2.5 MG PO ×2 (08:20→11:40)
[2023-09-30] MEDS: VITAMIN B1 100 MG PO ×2 (08:20→21:44)
[2023-09-30] MEDS: FOLVITE 1 MG PO (08:20)
[2023-09-30] MEDS: LOW STRENGTH ASPIRIN 81 MG PO (08:20)
[2023-09-30] MEDS: DIOVAN 40 MG PO ×2 (08:20→11:37)
[2023-09-30] MEDS: NOVOLOG FLEXPEN-MODERATE RESISTANCE 9 UNITS SC (08:22)
[2023-09-30] MEDS: NOVOLOG FLEXPEN 5 UNITS SC (08:22)
--- NOTE | 2023-09-30 08:32 | W.PN.CD ---
Today's Communication / Plan
-
- Will add HCTZ and observe
- wean nicardipine as possible
Impression / Plan
-
Impression: 67M with limited medical care presenting with 'new' severe hypertension, diabetes mellitus, and mental status changes.
Plan
HTN Emergency
-He presented with change in mental status.
-On Cardene, started Valsartan 40mg BID & amlodipine. Will add HCTZ and observe
-Self discontinued ACEi 13 years ago due to a cough
-LVH on EKG and echocardiogram ordered
Change in mental status
- as per primary
- got sedation overnight -> his answers to questions are all correct but very slow.
Type II DM, with hyperglycemia, new diagnosis, Hgba1c pending, per primary
Dyslipidemia, started on atorvastatin 40mg, triglycerides will likely improve with diabetic management
Suspected MITCHEL
Obesity, BMI 38, he would benefit from weight loss
Subjective: No CP, palps, or dyspnea.
Critically ill 34 minutes
TTE September 28: Normal EF, moderate LVH, aortic sclerosis, SOV 4.2 cm
Physical Exam
Vital Signs/Labs
Vital Signs
Temp Pulse Resp BP Pulse Ox
36.3 C 69 13 165/93 96
09/30/23 07:45 09/30/23 08:20 09/30/23 06:30 09/30/23 08:20 09/30/23 06:30
09/29/23 09/30/23 10/01/23
06:59 06:59 06:59
Actual Weight 264 lb 8.875 oz 269 lb 6.478 oz
09/30/23 03:27
09/30/23 03:27
Magnesium 1.6 mg/dl (1.6-2.3) 09/30/23 03:27
Triglycerides 314 mg/dl (10-149) H 09/29/23 05:16
LDL Cholesterol, Calc 123 mg/dl 09/29/23 05:16
VLDL Cholesterol, Calc 62 mg/dl (0-30) H 09/29/23 05:16
HDL Cholesterol 34 mg/dl 09/29/23 05:16
LAB Results
09/28/23
13:05
Troponin I 0.017
Physical Exam
Constitutional: No acute distress and Other (AAOx3)
EENT: Anicteric and Moist mucous membranes
Cardiovascular: Rhythm & rate is regular, Systolic murmur absent, Diastolic murmur absent and Pedal edema present
Respiratory: Respiratory effort normal
GI: Soft, Distention absent, Non tender and Normal bowel sounds
Neuro/Psych: Alert and Oriented
Data Reviewed
-
Date of Service: September 30, 2023
--- NOTE | 2023-09-30 09:13 | PN.DE.MGMTRT ---
Insulin Management
- -
09/30/2023 Diabetes Management Consult
Patient admitted 09/27 with change in mental status, lethargy, slurred speech. PMH suspected HTN, diabetes, MITCHEL, patient has not been to a doctor in 13 years.
A1C is 10.9, cr 1.0, eGFR >60.
Patient has been started on lantus 15 units @ HS with novolog 5 units AC. Glucose remains > 300 fasting this AM. Will increase HS lantus to 20 units and AC novolog to 10 units. Will add metformin 500 mg BID.
Discussed at length with patient and importance of glucose control. They are both verbalizing they understand. Will need glucose monitor. Nurse to start demonstration of insulin pen with each meal.
Will follow for further needed adjustments.
Diabetes History
- -
Type of Diabetes: 2
Pre-Admission Diabetes Regimen
09/30/23
03:27
Creatinine 1.0
Lab Results
Hemoglobin A1c 10.9 % (4.0-5.6) H 09/28/23 13:05
Insulin Pump Settings
IP Diabetes Regimen
09/29/23 09/29/23 09/29/23
13:04 17:14 20:55
Glucose
POC Glucose 276 H 208 H 200 H
09/30/23 09/30/23
03:27 07:51
Glucose 303 H
POC Glucose 364 H
Meal type: Dinner
Meal type: Lunch
Meal type: Breakfast
Amount consumed: 100%
Amount consumed: 100%
Amount consumed: 100%
Patient Education
[2023-09-30] MEDS: LOPRESSOR 5 MG IV (09:41)
[2023-09-30] MEDS: GLUCOPHAGE 500 MG PO ×2 (11:38→17:25)
[2023-09-30] MEDS: ORETIC 25 MG PO (11:38)
[2023-09-30] MEDS: LUMINAL 64.7999999999999972 MG PO ×3 (11:38→21:44)
[2023-09-30 12:09] LABS: Glucose - Point of Care 340 mg/dl (70-99)
[2023-09-30] MEDS: NOVOLOG FLEXPEN 10 UNITS SC ×2 (12:14→17:59)
[2023-09-30] MEDS: NOVOLOG FLEXPEN-MODERATE RESISTANCE 7 UNITS SC (12:14)
--- NOTE | 2023-09-30 12:59 | CON.NEURO4 ---
Addendum entered and electronically signed by Lorenzo Dorsey MD 09/30/23 15:08:
Studies reviewed.
I have personally examined the patient. I reviewed and agree with the BENEFITS CONSULTING ANALYST's Note.
My addenda:
Awake, alert, interactive. No acute distress.
Speech intact.
Follows 2-step requests w/o difficulty. No tremor.
Extra-ocular movements grossly intact.
Facial movements full and symmetric. Hearing intact to normal conversational volume.
Normal UE movements bilaterally.
Neck: full ROM.
Chest: no dyspnea
Heart: no JVD
Ext: (-) Clubbing, (-) Cyanosis, (-) Edema
IMPRESSIONS/RECOMMENDATIONS:
Abrupt onset of change in mental status according to the patient's with worsening speech and gait
Patient subsequently discovered to have profound hypertension
Differential diagnosis includes diffuse intracranial injury or toxic metabolic encephalopathy
Check MRI brain for completeness
Check outpatient sleep study for possible obstructive sleep apnea
Provide symptomatic therapy
Agree with continuation of aspirin at this time based on CAT scan of head suggestive of intracranial lacunar lesions
Continue rehabilitation evaluations
D/W patient / family / nursing
All questions answered.
Will continue to follow patient.
Original Note:
Documented by User: Susan North NP 09/30/23 14:46
Consultation - Neurology 4
-
CONSULTING PHYSICIAN: Lorenzo Dorsey MD
REFERRING PHYSICIAN: [facility]/Dr. Cui
DICTATED BY: DAVID Porter
DATE/TIME OF REQUEST: 09/30/23
DATE/TIME OF CONSULTATION: 09/30/23
Reason for Consultation: Change in mental status
History of Present Illness:
This is a 67-year-old right-handed male who has presented to the hospital on 09/28/23 with report of lethargy, gait abnormality, and slurred speech. Patient reports that he feels fine and he does not endorse any abnormal symptoms; this information
is obtained from his at bedside. Patient's reports that for the past month he has been excessively sleepy. He has been sleeping for 45 minutes out of every daytime hour and will fall asleep mid conversation. 5-6 days ago his gait suddenly
became shuffled and his speech slurred. These symptoms did not improve, prompting her to bring him to the ER for evaluation. CT head was obtained on arrival in the ER and is negative for any acute abnormalities but is suggestive of a posterior right
parietal lobe chronic infarct. Blood pressure on arrival was 242/162. HbA1c is 10.9. Overnight he was agitated towards staff wtih behavior concerning of alcohol withdrawal, patient reports he drinks 2-3 beers per day. Patient was last evaluated by a
physician 13 years ago at which point his blood pressure was high and his blood glucose was elevated. He was on lisinopril for a short time but it caused a cough so he stopped taking it and never followed-up again. His also notes that he snores
excessively and has apneic periods throughout the night, he has not had any testing completed for sleep apnea. There has been no significant improvement in his mental status, prompting Neurology evaluation. Patient denies any headache, dizziness,
vision changes, speech/swallow difficulty, numbness, weakness, nausea, chest pain, palpitations, and shortness of breath. His notes that his verbal responses are slow compared to his baseline. He had no known history of TIA or stroke and was
not taking any blood-thinning medications.
Past Medical History: HTN, obesity
Surgical History: Denies.
Family History: Reviewed and noncontributory.
Social History: Former smoker. Daily alcohol. Denies illicit drug use.
Allergies: No known allergies.
Home Medications: See below.
Review of Symptoms:
Patient denies any fever, headache, chest pain, shortness of breath, GI or symptoms.
�Per the HPI.�All systems are reviewed negative except above.
Physical Exam:
The patient is afebrile, abdomen is obese/nondistended, breathing is unlabored, skin warm and dry, no edema.
NIH Stroke Scale:
I performed the NIH stroke scale on the patient on 09/30/23 at 1330. The patient scored 2 points on the NIH stroke scale assessment, which were assigned as follows: See below.
Neurologic Examination:
The patient is awake, alert and oriented x 3. Verbal responses are slow. He is able to follow commands and answer questions appropriately. There is no aphasia. There is very mild dysarthria at times. On cranial nerve assessment, pupils are 3 mm
bilateral, round and reactive to light and accommodation. Visual emanuel are full. Extraocular movements are intact. Facial sensations are intact and bilaterally symmetrical, there is no facial asymmetry. Hearing is intact bilaterally to normal
conversation volume. Tongue palate and uvula are midline. Sternocleidomastoid strengths are full bilaterally. Motor strengths are 5/5 bilateral upper and lower extremities on medical research [place] scale. There is drift in the RUE. No involuntary
movement noted. Deep tendon reflexes are 2+ bilateral upper and lower extremities and Babinski is absent bilaterally. There was no extinction noted on double simultaneous stimulation. Coordination is intact by finger to nose and heel to jordan
bilaterally.
Lab Results: See below.
Neuro Imaging:
1. CT Head 09/28/23: No acute intracranial abnormality. Moderate hypoattenuation and heterogeneity of the periventricular and deep white matter, most likely secondary to chronic microvascular ischemic disease. More focal area of hypoattenuation
within the posterior right parietal lobe which may represent a chronic infarct/ex vacuo dilatation.
Differentials for the patient's presentation include:
1. Multifactorial encephalopathy; hypertensive, metabolic, possibly vascular given significant risk factors for stroke.
2. Hypertensive emergency.
3. New diagnosis NIDDM.
4. Likely untreated MITCHEL.
Patient has the following risk factors for their symptoms: HTN, HLD, NIDDM
IV Tenecteplase/IAT candidacy: Not a candidate due to unclear diagnosis, outside of time window.
Recommendations:
-Continue aspirin 81mg daily.
-MRI brain noncontrast ordered/pending.
-Goal normotension.
-LDL goal <70. LDL is 123. Continue newly initiated atorvastatin 40mg daily.
-Goal normoglycemia, hbA1c is 10.9.
-NIHSS and neurological checks per unit guidelines.
-Provide patient with a stroke education packet.
-MSAS protocol. Continue thiamine 100mg daily.
-PT/OT/ST evaluations.
-DVT prophylaxis.
-Needs outpatient sleep study.
-Will follow pending results.
Discussed patient care with: Dr. Dorsey, the patient
Vital Signs and Labs
-
Vital Signs and Labs:
Vital Signs
Temp Pulse Resp BP Pulse Ox
96.3 F L 76 14 160/95 95
09/30/23 11:15 09/30/23 12:19 09/30/23 12:19 09/30/23 12:19 09/30/23 12:19
Lab Results
09/30/23 03:27
09/30/23 03:27
Sodium 135 mmol/L (135-145) 09/30/23 03:27
Potassium 4.0 mmol/L (3.5-5.1) D 09/30/23 03:27
BUN 18 mg/dl (9-20) 09/30/23 03:27
Glucose 303 mg/dl (70-99) H 09/30/23 03:27
Calcium 9.2 mg/dl (8.4-10.2) 09/30/23 03:27
LDL Cholesterol, Calc 123 mg/dl 09/29/23 05:16
Vitamin B12 583 pg/ml (239-931) 09/30/23 03:27
Medications
-
Active Medications
Generic Name Dose Route Start Last Admin
Trade Name Freq PRN Reason Stop Dose Admin
Acetaminophen 650 mg 09/28/23 17:59
Acetaminophen 325 Mg Tablet PO 10/26/23 17:58
Q4HPRN PRN
mild pain/OLVERA/temp> 100.4F
Amlodipine Besylate 5 mg 10/01/23 08:00
Amlodipine 5 Mg Tablet PO 10/29/23 07:59
DAILY ALMAZ
Aspirin 81 mg 09/28/23 18:00 09/30/23 08:20
Aspirin 81 Mg Chewable Tablet PO 10/26/23 17:59 81 mg
DAILY ALMAZ Administration
Atorvastatin Calcium 40 mg 09/28/23 18:00 09/29/23 18:08
Atorvastatin (Lipitor) 40 Mg Tablet PO 10/26/23 17:59 40 mg
QPM ALMAZ Administration
Bisacodyl 10 mg 09/28/23 17:59
Bisacodyl 10 Mg Rectal Suppository RECTAL 10/26/23 17:58
[id number] PRN
constipation
Dextrose 12.5 grams 09/28/23 17:06
Dextrose 50% (0.5 Grams/Ml) 50 Ml Syringe IV 10/26/23 17:05
[id number] PRN
hypoglycemia
Protocol
Enoxaparin Sodium 40 mg 09/28/23 18:00 09/29/23 18:08
Enoxaparin Sodium 40 Mg/0.4 Ml Syringe SC 10/26/23 17:59 40 mg
QPM ALMAZ Administration
Folic Acid 1 mg 09/29/23 15:00 09/30/23 08:20
Folic Acid 1 Mg Tablet PO 10/27/23 14:59 1 mg
DAILY ALMAZ Administration
Glucagon 1 mg 09/28/23 17:06
Glucagon 1 Mg Vial IM 10/26/23 17:05
PRN PRN
hypoglycemia
Protocol
Hydrochlorothiazide 25 mg 09/30/23 09:00 09/30/23 11:38
Hydrochlorothiazide 25 Mg Tablet PO 10/28/23 08:59 25 mg
DAILY ALMAZ Administration
Nicardipine/Sodium Chloride 40 mg in 200 mls @ 0 mls/hr 09/28/23 17:59 09/30/23 12:09
Cardene IV 200 mls
PER PROTOCOL ALMAZ Administration
Protocol
Per Protocol
Insulin Glargine 20 units/ 0.2 mls @ 0 mls/hr 09/30/23 22:00
Device SC 10/28/23 21:59
HS ALMAZ
As Directed
Insulin Aspart 0 units 09/29/23 11:30 09/30/23 12:14
Insulin Aspart Moderate Resistance 300 Units/3 Ml Pen.Injctr SC 10/27/23 11:29 7 units
AC ALMAZ Administration
Protocol
Insulin Aspart 10 units 09/30/23 11:30 09/30/23 12:14
Insulin Aspart (100 Units/Ml) 3 Ml Flexpen SC 10/28/23 11:29 10 units
AC ALMAZ Administration
Lorazepam 1 mg 09/30/23 11:18
Ativan 1 Mg Dose IV 10/28/23 11:17
Q4H PRN
ANXIETY/AGITATION
Metformin HCl 500 mg 09/30/23 10:35 09/30/23 11:38
Metformin 500 Mg Regular Release Tablet PO 10/28/23 10:34 500 mg
BID@0800,1700 ALMAZ Administration
Metoprolol Tartrate 5 mg 09/29/23 11:22 09/30/23 09:41
Metoprolol 5 Mg/5 Ml Vial IV 10/27/23 11:21 5 mg
Q6HPRN PRN Administration
SBP >160
Phenobarbital Sodium 64.8 mg 09/30/23 12:00 09/30/23 11:38
Phenobarbital 32.4 Mg Tablet PO 10/01/23 22:01 64.8 mg
TID ALMAZ Administration
Phenobarbital Sodium 32.4 mg 10/02/23 08:00
Phenobarbital 32.4 Mg Tablet PO 10/03/23 22:01
TID ALMAZ
Polyethylene Glycol 17 grams 09/28/23 17:59
Polyethylene Glycol Powder 17 Grams Packet PO 10/26/23 17:58
DAILYPRN PRN
constipation
Senna/Docusate Sodium 1 tablet 09/28/23 17:59
Docusate W/Senna (Sabrina-Colace) Tablet PO 10/26/23 17:58
BIDPRN PRN
constipation
Sodium Chloride 0 flush 09/28/23 18:00
Sodium Chloride 0.9% (Flush) Syringe IV 10/26/23 17:59
PER PROTOCOL ALMAZ
Sodium Chloride 0 ml 09/29/23 12:00
Sodium Chloride 0.9% (Preservative Free) 10 Ml Vial IV 10/27/23 11:59
PRN PRN
IV Lorazepam dilution
Protocol
Sodium Chloride 0.5 ml 09/30/23 11:19
Nss (Pf) 10 Ml Vial For Ativan 1 Mg Dose IV 10/28/23 11:18
Q4HPRN PRN
IV LORAZEPAM DILUTION
Thiamine HCl 100 mg 09/29/23 20:00 09/30/23 08:20
Thiamine 100 Mg Tablet PO 10/27/23 19:59 100 mg
BID ALMAZ Administration
Valsartan 80 mg 09/30/23 20:00
Valsartan 80 Mg Tablet PO 10/28/23 19:59
BID ALMAZ
Home Medications
�Medication �Instructions �Recorded
omega 6-kbs-vpl-fish oil 1,000 mg 1 cap PO DAILY Supplement 09/28/23
(120 mg-180 mg) capsule (Fish Oil)
NIH Stroke Score
Subsequent NIH Scale
Date of Subsequent NIH Scale: 09/30/23
Time of Subsequent NIH Scale: 13:30
NIH Stroke Score
Level of Consciousness: 0 - Alert
LOC Questions: 0-Answers both correctly
LOC Commands: 0-Performs both correctly
Best Horizontal Gaze: 0-Normal
Visual Emanuel: 0=Normal, no visual loss
Facial Palsy: 0=Normal, symmetrical
Motor - Right Arm: 1=Drift < 10 seconds
Motor - Left Arm: 0=No drift 10 seconds
Motor - Right Le-No drift 5 seconds
Motor - Left Le-No drift 5 seconds
Limb Ataxia: 0-Absent
Sensation: 0-Normal
Best Language: 0-No aphasia
Dysarthria: 1-Mild slurring
Extinction and Inattention: 0-No abnormality
Total Score:: 2

Documented by User: Lorenzo Dorsey MD 09/30/23 15:00
Consultation - Neurology 4
-
CONSULTING PHYSICIAN: Lorenzo Dorsey MD
REFERRING PHYSICIAN: [facility]/Dr. Cui
DICTATED BY: DAVID Porter
DATE/TIME OF REQUEST: 09/30/23
DATE/TIME OF CONSULTATION: 09/30/23
Reason for Consultation: Change in mental status
History of Present Illness:
This is a 67-year-old right-handed male who has presented to the hospital on 09/28/23 with report of lethargy, gait abnormality, and slurred speech. Patient reports that he feels fine and he does not endorse any abnormal symptoms; this information
is obtained from his at bedside. Patient's reports that for the past month he has been excessively sleepy. He has been sleeping for 45 minutes out of every daytime hour and will fall asleep mid conversation. 5-6 days ago his gait suddenly
became shuffled and his speech slurred. These symptoms did not improve, prompting her to bring him to the ER for evaluation. CT head was obtained on arrival in the ER and is negative for any acute abnormalities but is suggestive of a posterior right
parietal lobe chronic infarct. Blood pressure on arrival was 242/162. HbA1c is 10.9. Overnight he was agitated towards staff wtih behavior concerning of alcohol withdrawal, patient reports he drinks 2-3 beers per day. Patient was last evaluated by a
physician 13 years ago at which point his blood pressure was high and his blood glucose was elevated. He was on lisinopril for a short time but it caused a cough so he stopped taking it and never followed-up again. His also notes that he snores
excessively and has apneic periods throughout the night, he has not had any testing completed for sleep apnea. There has been no significant improvement in his mental status, prompting Neurology evaluation. Patient denies any headache, dizziness,
vision changes, speech/swallow difficulty, numbness, weakness, nausea, chest pain, palpitations, and shortness of breath. His notes that his verbal responses are slow compared to his baseline. He had no known history of TIA or stroke and was
not taking any blood-thinning medications.
Past Medical History: HTN, obesity
Surgical History: Denies.
Family History: Reviewed and noncontributory.
Social History: Former smoker. Daily alcohol. Denies illicit drug use.
Allergies: No known allergies.
Home Medications: See below.
Review of Symptoms:
Patient denies any fever, headache, chest pain, shortness of breath, GI or symptoms.
�Per the HPI.�All systems are reviewed negative except above.
Physical Exam:
The patient is afebrile, abdomen is obese/nondistended, breathing is unlabored, skin warm and dry, no edema.
NIH Stroke Scale:
I performed the NIH stroke scale on the patient on 09/30/23 at 1330. The patient scored 2 points on the NIH stroke scale assessment, which were assigned as follows: See below.
Neurologic Examination:
The patient is awake, alert and oriented x 3. Verbal responses are slow. He is able to follow commands and answer questions appropriately. There is no aphasia. There is very mild dysarthria at times. On cranial nerve assessment, pupils are 3 mm
bilateral, round and reactive to light and accommodation. Visual emanuel are full. Extraocular movements are intact. Facial sensations are intact and bilaterally symmetrical, there is no facial asymmetry. Hearing is intact bilaterally to normal
conversation volume. Tongue palate and uvula are midline. Sternocleidomastoid strengths are full bilaterally. Motor strengths are 5/5 bilateral upper and lower extremities on medical research [place] scale. There is drift in the RUE. No involuntary
movement noted. Deep tendon reflexes are 2+ bilateral upper and lower extremities and Babinski is absent bilaterally. There was no extinction noted on double simultaneous stimulation. Coordination is intact by finger to nose and heel to jordan
bilaterally.
Lab Results: See below.
Neuro Imaging:
1. CT Head 09/28/23: No acute intracranial abnormality. Moderate hypoattenuation and heterogeneity of the periventricular and deep white matter, most likely secondary to chronic microvascular ischemic disease. More focal area of hypoattenuation
within the posterior right parietal lobe which may represent a chronic infarct/ex vacuo dilatation.
Differentials for the patient's presentation include:
1. Multifactorial encephalopathy; hypertensive, metabolic, possibly vascular given significant risk factors for stroke.
2. Hypertensive emergency.
3. New diagnosis NIDDM.
4. Likely untreated MITCHEL.
Patient has the following risk factors for their symptoms: HTN, HLD, NIDDM
IV Tenecteplase/IAT candidacy: Not a candidate due to unclear diagnosis, outside of time window.
Recommendations:
-Continue aspirin 81mg daily.
-MRI brain noncontrast ordered/pending.
-Goal normotension.
-LDL goal <70. LDL is 123. Continue newly initiated atorvastatin 40mg daily.
-Goal normoglycemia, hbA1c is 10.9.
-NIHSS and neurological checks per unit guidelines.
-Provide patient with a stroke education packet.
-MSAS protocol. Continue thiamine 100mg daily.
-PT/OT/ST evaluations.
-DVT prophylaxis.
-Needs outpatient sleep study.
-Will follow pending results.
Discussed patient care with: Dr. Dorsey, the patient
NIH Stroke Score
NIH Stroke Score
Total Score:: 2
--- NOTE | 2023-09-30 13:56 | PN.DE ---
Diabetes Education
- -
09/30/2023: Diabetes Education Consult
67 year old male admitted 09/27 with change in mental status, lethargy, slurred speech.
PMH suspected HTN, MITCHEL and DM, patient has not been to a doctor in 13 years and is not taking any meds.
Patient has been started on Insulin:- Lantus 15 units @ HS with NovoLog 5 units AC and metformin 500 mg BID.
Attempted to see pt for glucose monitor and insulin instructions but was unsuccessful. Pt is sleeping and is currently in distress and yelling at staff about her 's drinking history.
Will try again tomorrow
--- NOTE | 2023-09-30 14:37 | CM ---
CM following re: discharge planning.
Discussed in Rounds, reviewed pt's chart, met with pt and pt's spouse at bedside. Pt's spouse was very angry and upset regarding listening to pt's stories about drinking daily, smoking daily and it has been addressed by MD. CM spoke to pt yesterday
and today and it seems he answering question correctly with some delay/pause
Pt reports he lives with spouse 2SH, 2 steps to enter, has 2 supportive children. Pt described himself as independent in all areas [employer]. No DME, VN or SNF history.
PT and OT evaluations noted - home PT vs no needs recommended. per PT, pt's participation is limited due to high BP.
D/c plan: home with anticipated no needs. Family to transport at discharge.
CM will follow with discharge plan updates as hospitalization progresses
--- NOTE | 2023-09-30 17:01 | PTCARENOTE ---
Pt. remains on cardene gtt to keep SBP 140-160- see flow sheet. Assisted into BR x1, unsteady gait. Assisted into chair post BR. Remained in chair approx 3H. Assisted back to bed x1, bed alarm active. remains @ bedside.
[2023-09-30] MEDS: LIPITOR 40 MG PO (17:24)
[2023-09-30] MEDS: LOVENOX 40 MG SC (17:25)
[2023-09-30 17:33] LABS: Glucose - Point of Care 155 mg/dl (70-99)
[2023-09-30] MEDS: NOVOLOG FLEXPEN-MODERATE RESISTANCE 1 UNITS SC (17:59)
--- NOTE | 2023-09-30 20:00 | PTCARENOTE ---
rec'd patient. assessment as documented. pt forgetful but oriented. arouses to voice. denies pain. SR on monitor. cardene gtt infusing to maintain SBP between 140-160. on RA, denies SOB. call meléndez within reach. care ongoing.
[2023-09-30] MEDS: DIOVAN 80 MG PO (21:44)
[2023-09-30] MEDS: LANTUS 0.200000000000000011 UNITS SC (21:44)
[2023-09-30 21:55] LABS: Glucose - Point of Care 142 mg/dl (70-99)
[2023-10-01] VITALS (58 sets, daily range): BP systolic 126–202; BP diastolic 77–156; PULSE 2–83; BMI 38.9
[2023-10-01] MEDS: LOPRESSOR 5 MG IV (00:40)
[2023-10-01] MEDS: CARDENE 200 IV ×7 (00:42→20:52)
--- NOTE | 2023-10-01 00:45 | PTCARENOTE ---
systems reviewed. no changes in neuro status. PRN lopressor given for SBP >160. cardene gtt titrated to maintain SBP goal. pt repositioning self. care ongoing.
[2023-10-01 01:50] LABS: Urine Albumin Negative (Neg - Trace); Urine Bilirubin Negative (Negative); Urine Character Clear (Clear); Urine Color Yellow; Urine Glucose 1+ (Negative); Urine Ketone Negative (Negative); Urine Leukocyte Negative (Negative); Urine Nitrite Negative (Negative); Urine Occult Blood Negative (Negative); Urine Urobilinogen Negative (Neg - 1+)
[2023-10-01 03:55] LABS: Hematocrit 46.4 % (39.0-52.0); Hemoglobin 16.6 g/dL (13.0-18.0); Mean Corp Hgb Conc. 35.8 g/dL (33.0-37.0); Mean Corpuscular Hgb 30.6 pg (27.0-31.0); Mean Corpuscular Volume 85.6 fL (80.0-94.0); Mean Platelet Volume 10.8 fL (7.4-10.4); Platelet Count 230 10^3/uL (130-400); Red Blood Cell Count 5.42 10^6/uL (4.70-6.10); White Blood Cell Count 15.7 10^3/uL (4.8-10.8)
[2023-10-01 04:17] LABS: Blood Urea Nitrogen 22 mg/dl (9-20); Calcium 9.8 mg/dl (8.4-10.2); Carbon Dioxide 22 mmol/L (22-30); Chloride 103 mmol/L (98-107); Estimated Creatinine Clearance 88 ml/min; Glucose 186 mg/dl (70-99); Magnesium 1.6 mg/dl (1.6-2.3); Potassium 3.5 mmol/L (3.5-5.1); Sodium 136 mmol/L (135-145); eGFR > 60.00
--- NOTE | 2023-10-01 04:27 | PTCARENOTE ---
systems reviewed. AM labs sent. pt impulsive at times attempting to get OOB. bed alarm on. repositioning self. voids in urinal. call meléndez within reach, care ongoing.
--- NOTE | 2023-10-01 07:27 | W.PN.INTV ---
Today's Communication / Plan
Recommendations
Stop MSAS/phenobarb by 's request
HTN still an issue, on max cardene, cards following
Trial BIPAP tonight
Assessment
-
67 year old male with history of hypertension, obesity, medical noncompliance (has not seen a doctor in 13 years) presenting to ER for altered mental status/lethargy/slurring speech over the past week. In ER, initial blood pressure noted to be
242/162. Labetalol was attempted twice without effect. Patient was placed on Cardene gtt with subsequent improvement. CT head noted no acute abnormalities signs of chronic microvascular ischemic disease possible chronic infarct/ex vacuo
dilatation right parietal lobe. Admitted to ICU for cardene gtt.
Hypertensive emergency on cardene gtt
Possible old CVA noted on imaging
Hyperglycemia suspect diabetes
Suspect MITCHEL, + snoring/apneas/EDS
Slurred speech
Difficulty ambulating/lethargy
Hypokalemia
HLD
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
Obesity, BMI 38
Does not follow with medical care routinely
Plan
Change in MS noted, ongoing
CT head notes chronic microvascular ischemic disease possible chronic infarct right parietal lobe
Aspirin/statin
Denies pain at this time.
Pain/sedation: MSAS/phenobarb taper--will stop by 's request
RASS goals: 0
Drinks about 2-3 beers dailythis was noted by patient
adamant that he does not drinksee note below
Neuro following, MRI for today
Hypertensive emergency noted, placed on Cardene gtt/now on max dose
Cardio following--BP management ongoing
Cardiac history reviewed--HTN, tried on Lisinopril as OP
No prior ECHO obtained in past, can obtain new baseline study--reviewed stable
Change IV lopressor to labetalol PRN
Oxygen needs: stable on RA
Prior history of lung disease: none noted, smoking history noted
COPD suspected, can obtain PFT as OP
He is a former smoker, 1/2-1 PPD for 30 years, quit around age 52.
>15 years/quit date, does not qualify for yearly screening
Supplemental O2 as indicated to maintain sats > 89%
Overnight O2 study reviewed, will need PSG as OP for snoring/EDS/apneas
Can trial BIPAP overnight to see if this helps with HTN
Advance diet
Aspiration precautions, HOB > 30 degrees
Speech therapy eval can be considered if at elevated risk
GI prophylaxis if indicated for mechanical ventilation >48 hours, prior history of GERD, stress ulcer formation in the critically ill
Creat at baseline, no history of renal disease
Void trials
Follow urine output, critical I/Os
Replete electrolytes as needed--replete K
No signs/symptoms suspicious for infectious etiology at this time
Observe off antibiotics for now
Follow fever trend, WBC count
CBC stable, no signs of bleeding or coagulopathy.
DVT prophylaxis as assessed based on risk, including mechanical SCDs
Can transfuse if indicated for Hb <7, plt < 10
No prior h/o diabetes or thyroid disease/known
Continue accuchecks PRN/SS coverage if needed
HbA1c 10.9%
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
Family Discussions
See 10/01/23- (see other note)
See 09/30/23- angry/upset, yelling at staff about her 's drinking history. She is adamant he does not drink at all, maybe 1-2 drinks on the weekends and that if he did have drinks she would know. She feels he cannot possibly be drinking
without her knowledge and is upset that she must repeatedly say this to everyone. She is upset that he is 'labeled as an alcoholic.' She thinks he is too confused to be truthful about his history. He had told me yesterday that he smokes 1/2 PPD
and drinks 2-3 drinks almost every day, usually beers and states his has 2-3 glasses of wine as well. She does not believe this to be true. When asked her about stopping treatment in relationship to potential ETOH w/d and risk of
seizure/coma/ his now states if that she wants treatment. We will will proceed with treatment/taper in the event his history is true. This conversation was witnessed by CCRN, admin, CM and security.
Diagnostic Data
Chest X-Ray:
CT Scan: HEAD 09/28/23- No acute intracranial abnormality. Moderate hypoattenuation and heterogeneity of the periventricular and deep white matter, most likely secondary to chronic microvascular ischemic disease. More focal area of hypoattenuation
within the posterior right parietal lobe which may represent a chronic infarct/ex vacuo dilatation.
Echo: 09/29/23- LV ejection fraction is 70-75% by visual assessment. Moderate concentric left ventricular hypertrophy. Normal right ventricular size and function. Aortic valve sclerosis without stenosis.
Dilated aortic root with normal ascending aorta. No prior study available for comparison.
PFT's:
Reports and relevant images were personally reviewed.
-----
Critical care time 76 mins -- this includes review of history, physical exam, medications, hemodynamic/ventilator parameters, laboratory data, imaging and discussion with house staff, pharmacy, respiratory therapy, retail customer service representative, and nursing.
Subjective Dataa
Subjective Data
Date of Service:
Date of Service: October 01, 2023
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
Subjective:
no issues overnight, still seems confused
escalating BP noted, now on max cardene despite BP meds
and sister at bedside
Objective Data
Data Reviewed
Vital Signs / I&O / Oxygen:
Vital Signs
Temp Pulse Resp BP Pulse Ox
98.0 F 76 13 167/93 88
10/01/23 03:20 10/01/23 07:00 10/01/23 07:00 10/01/23 07:00 10/01/23 07:00
Intake and Output
05/22/24 05/23/24 05/24/24
06:59 06:59 06:59
Intake Total 1494.5 / 1634.0 1972.0 / 1972.0
Output Total 810 / 810 1100 / 1100
Balance 684.5 / 824.0 872.0 / 872.0
SaO2 88
Nasal Cannula flow liters per 2
minute
Physical Exam
General: Comfortable and Other (NAD)
HEENT: Normocephalic, Anicteric and Moist Mucous Membranes
Cardiovascular: S1-S2 and Regular Rhythm
Respiratory: Clear and Non-Labored Respirations
GI: Soft, Non Distended and Non Tender
Neurology: Awake, Alert, Oriented, AO x 3, No Motor Deficits, Tremors and Other (mildly confused but able to answer questions)
Skin: Warm, Dry and Good Color
Labs/Micro/Reports
Lab Data
10/01/23 03:44
10/01/23 03:44
--- NOTE | 2023-10-01 07:43 | PN.DE.MGMTRT ---
Insulin Management
- -
10/01/2023: Diabetes Management F/U:
Patient admitted 09/27 with change in mental status, lethargy, slurred speech. PMH: Untreated HTN, untreated T2DM, MITCHEL. Patient has not been to a doctor in 13 years. A1C is 10.9%, Cr 1.0, eGFR >60.
Pt awake, Alert, oriented, sitting up in bed, seems confused but able to answer questions and discuss diabetes mgt.
Patient was started on Lantus 15 units @ HS with NovoLog 5 units AC.
Glucose has improved, 155 pre-dinner and 142@ HS. FBG 186 this AM, and 218 pre-breakfast
Will increase Lantus to 22 units @ HS. Cont NovoLog 10 units and Metformin 500 mg BID.
diabetes plan of acre discussed with pt and Nurse.
Will follow for further needed adjustments.
Diabetes History
- -
Type of Diabetes: 2 requiring insulin
Pre-Admission Diabetes Regimen
10/01/23
03:44
Creatinine 1.1
Lab Results
Hemoglobin A1c 10.9 % (4.0-5.6) H 09/28/23 13:05
Insulin Pump Settings
IP Diabetes Regimen
09/30/23 09/30/23 09/30/23
07:51 11:43 17:21
Glucose
POC Glucose 364 H 340 H 155 H
09/30/23 10/01/23
21:44 03:44
Glucose 186 H
POC Glucose 142 H
Meal type: Lunch
Meal type: Breakfast
Amount consumed: 100%
Amount consumed: 100%
Patient Education
[2023-10-01 07:51] LABS: Glucose - Point of Care 218 mg/dl (70-99)
[2023-10-01] MEDS: VITAMIN B1 100 MG PO ×2 (07:54→20:52)
[2023-10-01] MEDS: FOLVITE 1 MG PO (07:55)
[2023-10-01] MEDS: GLUCOPHAGE 500 MG PO ×2 (07:55→17:44)
[2023-10-01] MEDS: DIOVAN 80 MG PO ×2 (07:55→20:52)
[2023-10-01] MEDS: LOW STRENGTH ASPIRIN 81 MG PO (07:55)
[2023-10-01] MEDS: LUMINAL 64.7999999999999972 MG PO (07:55)
[2023-10-01] MEDS: ORETIC 25 MG PO (07:55)
--- NOTE | 2023-10-01 07:55 | W.PN.CD ---
Today's Communication / Plan
-
-Continue Cardene drip for now.
-Will increase amlodipine to 10 mg daily.
-Continue valsartan 80 mg BID.
-Continue hydrochlorothiazide 25 mg daily (added yesterday).
-The patient has had uncontrolled hypertension for years, so it may take some time for his blood pressure to improve to adequate levels.
Impression / Plan
-
Impression: 67M with limited medical care presenting with 'new' severe hypertension, diabetes mellitus (HgbA1c 10.9%), and mental status changes.
Plan
HTN Emergency
-He presented with change in mental status.
-Continue Cardene drip for now.
-Will increase amlodipine to 10 mg daily.
-Continue valsartan 80 mg BID.
-Continue hydrochlorothiazide 25 mg daily (added yesterday).
-Self discontinued ACEi 13 years ago due to a cough
-LVH on EKG and moderate concentric LVH on echocardiogram; normal LVEF at 70-75% with no significant valvular disease.
-The patient has had uncontrolled hypertension for years, so it may take some time for his blood pressure to improve to adequate levels.
Change in mental status
-Management as per primary team.
-Answered questions appropriately this a.m.
Type II DM, with hyperglycemia, new diagnosis, Hgba1c 10.9%.
-Management as per primary team.
Dyslipidemia, started on atorvastatin 40mg, triglycerides will likely improve with diabetic management.
Suspected MITCHEL
Obesity, BMI 38, he would benefit from weight loss
Subjective: No major events overnight. Telemetry stable.
Critically ill 34 minutes
TTE September 28: Normal EF, moderate LVH, aortic sclerosis, SOV 4.2 cm
Physical Exam
Vital Signs/Labs
Vital Signs
Temp Pulse Resp BP Pulse Ox
98.0 F 76 13 167/93 88
10/01/23 03:20 10/01/23 07:00 10/01/23 07:00 10/01/23 07:00 10/01/23 07:00
09/30/23 10/01/23 10/02/23
06:59 06:59 06:59
Actual Weight 122.2 kg 123 kg
10/01/23 03:44
10/01/23 03:44
Magnesium 1.6 mg/dl (1.6-2.3) 10/01/23 03:44
Triglycerides 314 mg/dl (10-149) H 09/29/23 05:16
LDL Cholesterol, Calc 123 mg/dl 09/29/23 05:16
VLDL Cholesterol, Calc 62 mg/dl (0-30) H 09/29/23 05:16
HDL Cholesterol 34 mg/dl 09/29/23 05:16
LAB Results
09/28/23
13:05
Troponin I 0.017
Physical Exam
Constitutional: No acute distress and Comfortable
EENT: Anicteric
Cardiovascular: Rhythm & rate is regular, Systolic murmur absent, Pedal edema present (Trace) and S1S2 is normal
Respiratory: Respiratory effort normal and Lungs clear to auscul.
GI: Soft
Neuro/Psych: Alert and Oriented
Other: Skin (Warm, dry, intact)
Data Reviewed
-
Date of Service: October 01, 2023
EKG: Tracing Personally Visualized and interpreted (Telemetry: Sinus rhythm)
Echo: Report Reviewed by me ( LVEF 70-75%, moderate concentric LVH; aortic sclerosis without stenosis)
Medical Tests (PFT, Pathology etc): Discussed with Nurse
Labs: Labs Reviewed by me
Critical Care Time (in minutes): 37
--- NOTE | 2023-10-01 08:00 | PTCARENOTE ---
Received patient from night baker, patient is awake, oriented x3, odd affect but answers questions appropriately. Able to move all extremities, strength equal bilaterally. NIHSS 0. Patient is on room air, saturating in 90s when awake, pulse Ox
did measure in 70s when sleeping. Lungs diminished but clear. Sinus rhythm on monitor. Cardene gtt remains maxed out, infusing through left forearm. Spoke with cardiology and increased patient's Norvasc to 10mg. Patient is ordered 1800 yariel DM
diet, using urinal as needed. Skin is muro/flushed appearing but intact. Will review orders. Patient due to get MRI today. Denies any complaints of pain.
[2023-10-01] MEDS: NORVASC 10 MG PO (08:12)
--- NOTE | 2023-10-01 08:12 | W.PN.NEURO.1 ---
Today's Communication / Plan
-
Continue thiamine and folate
Continue aspirin and Atorvastatin
Neurologic checks and NIH scale
Slowly lower blood pressure given longstanding uncontrolled hypertension
Needs CPAP evaluation as outpatient
Diabetes education
Will follow
Neuro Assessment/Plan
Assessment
67-year-old man with past medical history of likely undiagnosed and longstanding hypertension and diabetes presents to the hospital with lethargy, confusion, dysarthria.
Blood pressure extremely elevated to 240's systolic range on admission
HbA1c supports diabetes with A1c in 10's range
On CT head I appreciate a chronic left parietal infarction, moderate white matter ischemic disease
Unclear on if there is significant alcohol use at baseline, patient expressed 1 day a week of drinking to me, has said more to other physicians, has been treated for potential alcohol withdrawal, thiamine and folate, PRN ativan and a few days of
Phenobarbital
Neurologic examination shows some confusion, cognitive difficulties, inattention and difficulty with complex tasks, no focal motor deficits
Very likely there is a multifactorial explanation for his encephalopathy:
-Fair chance of having had a new or recent ischemic stroke and CT imaging along with his undiagnosed hypertension and diabetes does support previous history of stroke and ischemic small vessel disease which can produce cognitive impairment
-Hypertensive encephalopathy possibly contributed
-Uncontrolled sleep apnea probably contributing as patient had had some lethargy and falling asleep in the middle of the day
-Unclear but it is possible that some degree of alcohol withdrawal contributing
-Phenobarbital probably contributing some
Subjective/Objective
Subjective Data
Date of Service: October 01, 2023
No acute events, patient has no complaints at this time
Objective Data
Vital Signs
Temp Pulse Resp BP Pulse Ox
97.9 F 89 13 171/89 88
10/01/23 08:01 10/01/23 07:55 10/01/23 07:00 10/01/23 07:55 10/01/23 07:00
Lab Results
10/01/23 03:44
05/23/24 03:44
Sodium 136 mmol/L (135-145) 10/01/23 03:44
Potassium 3.5 mmol/L (3.5-5.1) 10/01/23 03:44
BUN 22 mg/dl (9-20) H 10/01/23 03:44
Glucose 186 mg/dl (70-99) H 10/01/23 03:44
Calcium 9.8 mg/dl (8.4-10.2) 10/01/23 03:44
Phosphorus 4.0 mg/dl (2.5-4.5) 10/01/23 03:44
LDL Cholesterol, Calc 123 mg/dl 09/29/23 05:16
Vitamin B12 583 pg/ml (078-931) 09/30/23 03:27
Patient Allergies
No Known Allergies Allergy (Verified 09/28/23 12:00)
Review of Systems
-
History Source: Patient
All other systems: Reviewed and negative
Constitutional: No Symptoms
EENT: No Symptoms Reported
Respiratory: No Symptoms
Cardiac: No Symptoms
Abdomen/GI: No Symptoms
Genitourinary: No Symptoms
Musculoskeletal: No Symptoms
Skin: No Symptoms
Neuro: Speech Problem
Endocrine: No Symptoms
Hematologic / Lymphatic: No Symptoms
Allergy / Immunology: No Symptoms
Physical Exam
-
General: Comfortable
Eyes: No Ptosis
HEENT: Normocephalic
Neck: No Bruits Bilaterally
Respiratory: Clear to Auscultation
Cardiac: Regular Rhythm
GI: Normal Bowel Sounds
Skin: Unremarkable
Extremities: No Clubbing
Psych: Confused; Negative Agitated
Extended Neurological Exam
Mood & Affect: Mood Unremarkable and Affect Unremarkable
Attention Span & Concentration: Other (Subtraction from 100 is adequate, knows president, upcoming holiday, doesn't know exact month but says October, praxis normal, difficulty with more complex tasks)
Memory: Reduced
Tremor: Hand Tremor Absent
Involuntary Movement: None
Speech: Negative Expressive Aphasia, Receptive Aphasia or Dysarthric
Cranial Nerve II: Left Eye: Pupillary Reactivity Unremarkable and Pupillary Size Unremarkable
Cranial Nerve II: Right Eye: Pupillary Reactivity Unremarkable and Pupillary Size Unremarkable
Cranial Nerves III, IV, : Extraocular Movement: Extraocular Movement Full in all Directions
Muscle Strength, Overall: Full Throughout
Pronator Drift: No Drift in Upper Extremities
Babinski Sign: Absent Bilaterally
Data Reviewed
-
CT Head: Report Reviewed and Image Reviewed
MRI Head: Ordered and Pending
[2023-10-01] MEDS: NOVOLOG FLEXPEN-MODERATE RESISTANCE 3 UNITS SC ×2 (08:14→17:34)
[2023-10-01] MEDS: NOVOLOG FLEXPEN 10 UNITS SC ×3 (08:14→17:34)
--- NOTE | 2023-10-01 08:45 | PTOTSP ---
Speech Language Pathology
Pt seen for cognitive-linguistic evaluation via the [employer] Cognitive Assessment (MOCA), version 8.1. Pt with an overall score of 22/30. Significantly prolonged time to complete assessment noted (30 minutes). Pt with mild-mod cognitive deficits
with poor insight into deficits.
Pt would benefit from continued cognitive therapy both while in hospital and at discharge.
--- NOTE | 2023-10-01 09:28 | W.PN.HOSP.TC ---
Today's Communication/Plan
-
see bold
Assessment / Plan
Assessment / Plan
HPI: 67 male history hypertension obesity lost to follow-up has not seen a doctor in 13 years brought in by family due to concerns altered mental status lethargy falling asleep in the middle of the day slurring speech progressive for the last month
acutely worsening over the last week. Denies headache lightheadedness fevers chills nausea vomiting diarrhea constipation chest abdomen pain palpitations. Reports polyuria polyphagia polydipsia. also reports severe snoring at night patient
occasionally stops breathing while sleeping. Never formally diagnosed with sleep apnea but strongly suspected. ED eval was significant for hypertensive urgency/emergency initial blood pressure 242/162. Labetalol was attempted twice without
effect. Patient was placed on Cardene gtt. with subsequent improvement. Rest of vital signs stable afebrile on room air. EKG sinus rhythm with first-degree block nonspecific ST-T abnormalities. CT head noted no acute abnormalities signs of
chronic microvascular ischemic disease possible chronic infarct/ex vacuo dilatation right parietal lobe. NIH scale 0 no significant signs of stroke at this time.
#Hypertensive urgency emergency
Appreciate cardiology and longwall foreman input
Continue Cardene drip, increase amlodipine to 10 mg daily, continue valsartan 80 mg twice daily, hydrochlorothiazide 25 mg daily
#Acute�subacute infarct
#Old infarcts
Appreciate neurology input, continue aspirin 81 mg that was started in the hospital
Treat new onset diabetes as below
Started atorvastatin 40 mg at bedtime, PT/OT, control blood pressure as below
#Subacute encephalopathy
Likely due to stroke
B12/TSH normal
There is a questionable history of alcohol use, denies
Continue to monitor
#Hyperlipidemia
Started atorvastatin 40 mg at bedtime
#Hypokalemia
Repleted and resolved
#New onset type 2 diabetes, hemoglobin A1c 10.9
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
Started on metformin, continue sliding scale insulin, diabetes education
#Likely obstructive sleep apnea
Outpatient sleep study recommended
#Leukocytosis
Afebrile, no signs or symptoms of infection
UA/1 view chest x-ray negative
Monitor off antibiotics
#Obesity due to excess calories
Affects all aspects of care
DVT prophylaxis Lovenox
Full code
Updated at bedside 09/30
Total time spent to see the patient on the floor, examine the patient, review data and lab results, discuss treatment plan with patient, nursing staff around 51 minutes.
Physical Exam
General: Obese, no acute distress
HEENT: Normocephalic, Atraumatic, EOMI, MMM
Respiratory: Clear to Auscultation bilaterally
Cardiac: Normal S1/S2, Regular Rate and Rhythm
GI: Soft, Nontender, Nondistended, Normal Bowel Sounds
Extremities: No Clubbing, Cyanosis, or Edema
Neuro: Nonfocal/Grossly Intact
Psych: Calm, Cooperative
Derm: No Visible lesions
Anticipated Discharge: > 48 hours
Subjective/Interval History
-
Date of Service: October 01, 2023
Patient is alert, awake, oriented. He denies chest pain, shortness of breath.
Objective Data
-
Labs:
Laboratory Results
10/01/23
03:44
WBC 15.7 H
Hgb 16.6
Hct 46.4
Plt Count 230
Sodium 136
Potassium 3.5
Chloride 103
Carbon Dioxide 22
BUN 22 H
Creatinine 1.1
Glucose 186 H
Calcium 9.8
Vital Signs:
Vital Signs
Temp Pulse Resp BP Pulse Ox
97.9 F 81 18 202/131 95
10/01/23 08:01 10/01/23 09:01 10/01/23 09:01 10/01/23 09:01 10/01/23 09:01
I&O
09/30/23 10/01/23 10/02/23
06:59 06:59 06:59
Intake Total 1494.5 / 1634.0 1972.0 / 2047.0 225 /
Output Total 810 / 810 1100 / 1100
Balance 684.5 / 824.0 872.0 / 947.0 /
--- NOTE | 2023-10-01 11:10 | W.PN.UPDATE ---
Update Note
Progress Note Update
Update note:
I spoke to this AM during morning rounds. She is at bedside with her sister. We discussed plan of care including phenobarb taper which had agreed to yesterday in case his history was accurate. She immediately become aggressive and
defensive and did not want to talk about alcohol withdrawal treatment again. I reminded her that she and I had a discussion in regards to which history we need to go with and if we were to not treat ETOH w/d that he may have risk of
seizure/coma/. She had agreed yesterday 09/30/23. He had a very calm night with taper on and no adverse effects.
Today, she is accompanied with her sister and began a tirade regarding the ETOH w/d which included speaking with other friends and family who feel strongly that he does not have a drinking problem, that this should never be brought up again and that
he should no longer be treated for ETOH w/d at all. The 's sister than stated to myself with a pointed finger: 'Can I just say? You are just stupid. Stupid.' She then proceeded to explain that they should not have to repeat themselves over and
over again and that his knows him better than anyone and we should not treat him for ETOH w/d.
We had already agreed as a care team to stop the taper and MSAS protocol, but the again continued to be aggressive and verbally abusive. She referred to this as 'advocating for the patient.'
She then has made comments to staff about speaking to a air sampling and monitoring.
We will involve risk team. Our clinically staff is aware of what has transpired.
We will stop any ETOH w/d treatment and per 's request not bring this up again. She understands the risks of stopping treatment and would like to proceed.
--- NOTE | 2023-10-01 11:30 | PTCARENOTE ---
Diabetes Education- Met with Ba, -Leeanne and 's sister in room. New diagnosis T2DM, A1C 10.9%.When asking question, Leeanne is quick to respond, I did ask her to let Ba speak so I can assess his understanding. He appears to have a delayed
response to questions. Provided with and instructions given on Contour Next EZ glucometer. Aware to test ACHS, expected results as marked in take home education booklet. Fair return demonstration with result of 161 mg/dl pre lunch. with good
understanding of use of glucometer. Discussed both rapid acting and long acting insulins action, onset, peak and duration. Importance at meals to check blood sugar, inject rapid acting insulin and eat in about 15 minutes. To take long acting insulin
at consistent time. Discussed storage of insulin pens and emphasized that they are multiply day use pens.. To inject rapid acting in abdomen and long acting in outer thigh. Discussed symptoms and treatment of hypoglycemia. Instructions with fair
return demonstration x2 for Ba of the insulin pen. He did require step by step instructions. Leeanne understands the process well and able to return demonstrate without any verbal cues. Take home pen needles at bedside for Ba to practice self
injecting while at . Updates to DAKOTA Hatfield who will practice with him at lunch and dinner. Will follow up tomorrow to assess further needs and retention.
[2023-10-01 11:45] LABS: Glucose - Point of Care 199 mg/dl (70-99)
[2023-10-01 12:21] LABS: NT-proBNP 139 pg/ml
[2023-10-01 12:35] LABS: Lipase 87 U/L (23-300)
[2023-10-01] MEDS: NOVOLOG FLEXPEN-MODERATE RESISTANCE 1 UNITS SC (14:20)
[2023-10-01 14:26] LABS: Glucose - Point of Care 168 mg/dl (70-99)
--- NOTE | 2023-10-01 14:49 | PTCARENOTE ---
Took patient to MRI on monitor and on cardene. monitored patient during entirety of test.
--- NOTE | 2023-10-01 15:00 | PTCARENOTE ---
Patient was complaining of left hand pain, flushed line and changed infusion to left AC. Good blood return from left hand INT. will monitor hand for sins of infiltration.
[2023-10-01] MEDS: PLAVIX 300 MG PO (15:40)
[2023-10-01 17:10] LABS: Glucose - Point of Care 247 mg/dl (70-99)
[2023-10-01] MEDS: LOVENOX SC (17:24)
[2023-10-01] MEDS: TYLENOL 650 MG PO (17:43)
[2023-10-01] MEDS: LIPITOR 40 MG PO (17:44)
[2023-10-01 17:52] LABS: Glucose - Point of Care 233 mg/dl (70-99)
--- NOTE | 2023-10-01 20:39 | PTCARENOTE ---
rec'd patient. assessment as documented. oriented x3, at times is impulsive and forgetful. bed alarm on. SR on monitor. on RA, plan for bipap HS. repositions self. urinal at bedside. call meléndez within reach, care ongoing.
[2023-10-01] MEDS: LANTUS 0.220000000000000001 UNITS SC (20:53)
[2023-10-01 21:48] LABS: Glucose - Point of Care 138 mg/dl (70-99)
[2023-10-02] VITALS (36 sets, daily range): BP systolic 115–180; BP diastolic 60–100; PULSE 82–86; O2SAT 96; BMI 39.0
--- NOTE | 2023-10-02 00:10 | PTCARENOTE ---
systems reviewed. pt on bipap overnight. new PIV placed with cardene gtt infusing, titrated per SBP goal. pt repositioning self. care ongoing.
--- NOTE | 2023-10-02 01:14 | PTCARENOTE ---
pt ripping off bipap continuously, refusing to wear it overnight. RT notified. back on RA, spO2 92%.
[2023-10-02] MEDS: CARDENE 200 IV ×2 (01:23→05:29)
--- NOTE | 2023-10-02 05:38 | PTCARENOTE ---
pt reassessed. remains impulsive, attempting to get OOB multiple times. assist x1 to BR this morning. AM labs sent. cardene gtt continues. care ongoing.
[2023-10-02 05:55] LABS: Hematocrit 47.4 % (39.0-52.0); Hemoglobin 16.7 g/dL (13.0-18.0); Mean Corp Hgb Conc. 35.2 g/dL (33.0-37.0); Mean Corpuscular Hgb 30.3 pg (27.0-31.0); Mean Corpuscular Volume 85.9 fL (80.0-94.0); Mean Platelet Volume 10.8 fL (7.4-10.4); Platelet Count 260 10^3/uL (130-400); Red Blood Cell Count 5.52 10^6/uL (4.70-6.10); Red Cell Dist. Width 12.8 % (11.5-14.5); White Blood Cell Count 16.2 10^3/uL (4.8-10.8)
[2023-10-02 06:20] LABS: Blood Urea Nitrogen 22 mg/dl (9-20); Carbon Dioxide 20 mmol/L (22-30); Chloride 102 mmol/L (98-107); Estimated Creatinine Clearance 81 ml/min; Glucose 188 mg/dl (70-99); Magnesium 1.5 mg/dl (1.6-2.3); Potassium 3.5 mmol/L (3.5-5.1); Sodium 136 mmol/L (135-145); eGFR > 60.00
--- NOTE | 2023-10-02 07:22 | PN.DE.MGMTRT ---
Insulin Management
- -
10/02/2023: Diabetes Management F/U:
Patient admitted 09/27 with change in mental status, lethargy, slurred speech. PMH: Untreated HTN, untreated T2DM, MITCHEL. Patient has not been to a doctor in 13 years. A1C is 10.9%, Cr 1.0, eGFR >60.
Pt awake, Alert, oriented x3, sitting up in bed, able to discuss diabetes mgt.
at bedside, pleasant and also able to engage in discussion re:diabetes mgt
Glucose stable w/ some elevations, premeal range 168 to 247, FBG 188 this AM, and 216 pre-breakfast
Will increase Lantus to 24 units @ HS and NovoLog to 12 units AC. Cont Metformin 500 mg BID.
Diabetes plan of acre discussed with pt, and Nurse.
Will follow for further needed adjustments. Rossy provided Monitor and insulin instructions to pt and yesterday. Will add Rx for supplies to his d/c orders
Diabetes History
- -
Type of Diabetes: 2 requiring insulin
Pre-Admission Diabetes Regimen
10/02/23
05:33
Creatinine 1.2
Lab Results
Hemoglobin A1c 10.9 % (4.0-5.6) H 09/28/23 13:05
Insulin Pump Settings
IP Diabetes Regimen
10/01/23 10/01/23 10/01/23
07:40 11:33 14:15
Glucose
POC Glucose 218 H 199 H 168 H
10/01/23 10/01/23 10/01/23
16:59 17:32 21:37
Glucose
POC Glucose 247 H 233 H 138 H
10/02/23
05:33
Glucose 188 H
POC Glucose
Meal type: Breakfast
Amount consumed: 100%
Patient Education
[2023-10-02] MEDS: GLUCOPHAGE 500 MG PO ×2 (07:36→17:31)
[2023-10-02] MEDS: LOW STRENGTH ASPIRIN 81 MG PO (07:36)
[2023-10-02] MEDS: VITAMIN B1 100 MG PO ×2 (07:37→20:18)
[2023-10-02] MEDS: DIOVAN 80 MG PO ×2 (07:37→20:18)
[2023-10-02] MEDS: NORVASC 10 MG PO (07:37)
[2023-10-02] MEDS: ORETIC 25 MG PO (07:37)
[2023-10-02] MEDS: PLAVIX 75 MG PO (07:37)
--- NOTE | 2023-10-02 07:49 | W.PN.NEURO.1 ---
Today's Communication / Plan
-
-Add Plavix, DAPT therapy for 21 days, end date of Plavix 10/20 then continue aspirin 81 mg daily superintendent terminal
-Check carotid ultrasound
-I feel that TTE is sufficient, not recommending ANTHONY
-Discussed importance of diet, exercise, treatment of hypertension, diabetes, sleep apnea
-Minimize sedating medications as able
-PT/OT speech therapy evaluations appreciated
-Okay for Lovenox for DVT prophylaxis
-Neuro checks and NIH scales
-Goal normotension
Neuro Assessment/Plan
Assessment
67-year-old man with past medical history of likely undiagnosed and longstanding hypertension and diabetes presents to the hospital with lethargy, confusion, dysarthria.
Blood pressure extremely elevated to 240's systolic range on admission
HbA1c supports diabetes with A1c in 10's range
On CT head I appreciate a chronic left parietal infarction, moderate white matter ischemic disease
Unclear on if there is significant alcohol use at baseline, patient expressed 1 day a week of drinking to me, has said more to other physicians, has been treated for potential alcohol withdrawal, thiamine and folate, PRN ativan and a few days of
Phenobarbital
Neurologic examination shows some confusion, cognitive difficulties, inattention and difficulty with complex tasks, no focal motor deficits
MRI brain shows strokes that are acute and some older subacute strokes that explains the couple of weeks of mental status changes that his has observed. Small areas of subcortical microhemorrhage from chronic hypertension were seen.
Stroke etiology is presumed atheroembolic from uncontrolled hypertension and diabetes, doubt cardiac embolism given the context, negative cardiac telemetry and no high risk source of emboli seen on TTE
Subjective/Objective
Subjective Data
Date of Service: October 02, 2023
No acute events, discussed MRI, stroke prevention, sleep apnea treatment
Objective Data
Vital Signs
Temp Pulse Resp BP Pulse Ox
98.7 F 70 15 157/67 93
10/02/23 04:52 10/02/23 06:30 10/02/23 06:30 10/02/23 07:37 10/02/23 06:30
Lab Results
10/02/23 05:33
10/02/23 05:33
Sodium 136 mmol/L (135-145) 10/02/23 05:33
Potassium 3.5 mmol/L (3.5-5.1) 10/02/23 05:33
BUN 22 mg/dl (9-20) H 10/02/23 05:33
Glucose 188 mg/dl (70-99) H 10/02/23 05:33
Calcium 10.0 mg/dl (8.4-10.2) 10/02/23 05:33
Phosphorus 4.0 mg/dl (2.5-4.5) 10/01/23 03:44
Nyn-X-Kdtbbjuwgmx Pept 139 pg/ml 10/01/23 03:44
LDL Cholesterol, Calc 123 mg/dl 09/29/23 05:16
Vitamin B12 583 pg/ml (239-931) 09/30/23 03:27
Patient Allergies
No Known Allergies Allergy (Verified 09/28/23 12:00)
LDL Level: >70, statin ordered
Review of Systems
-
History Source: Patient
All other systems: Reviewed and negative
Constitutional: No Symptoms
EENT: No Symptoms Reported
Respiratory: No Symptoms
Cardiac: No Symptoms
Abdomen/GI: No Symptoms
Genitourinary: No Symptoms
Musculoskeletal: No Symptoms
Skin: No Symptoms
Neuro: Speech Problem and See existing Neuro Note
Endocrine: No Symptoms
Hematologic / Lymphatic: No Symptoms
Allergy / Immunology: No Symptoms
Physical Exam
-
General: Comfortable
Eyes: No Ptosis
HEENT: Normocephalic
Neck: No Bruits Bilaterally
Respiratory: Clear to Auscultation
Cardiac: Regular Rhythm
GI: Normal Bowel Sounds
Skin: Unremarkable
Extremities: No Clubbing
Psych: Negative Agitated
Extended Neurological Exam
Mood & Affect: Mood Unremarkable and Affect Unremarkable
Attention Span & Concentration: Other (Awake, oriented to month, place, upcoming holiday, fair insight, difficulty with complex commands, praxis normal, no neglect)
Memory: Reduced
Tremor: Hand Tremor Absent
Involuntary Movement: None
Speech: Quality Unremarkable and Quantity Unremarkable; Negative Expressive Aphasia or Receptive Aphasia
Cranial Nerve II: Left Eye: Pupillary Reactivity Unremarkable, Pupillary Size Unremarkable and Visual Emanuel Grossly Intact
Cranial Nerve II: Right Eye: Pupillary Reactivity Unremarkable, Pupillary Size Unremarkable and Visual Emanuel Grossly Intact
Cranial Nerves III, IV, : Extraocular Movement: Extraocular Movement Full in all Directions
Muscle Strength, Overall: Full Throughout
Pronator Drift: No Drift in Upper Extremities
Touch Sensation: Testing in Upper Extremities
Coordination: Lesmne-xvxf-wzhtlx Testing Unremarkable
Data Reviewed
-
CT Head: Report Reviewed and Image Reviewed
MRI Head: Report Reviewed and Image Reviewed
Labs: Report Reviewed
--- NOTE | 2023-10-02 07:55 | PTCARENOTE ---
received patient from cage shift manager. patient is aaox3, slow to arouse, answers appropriately. Patient is on room air, did not tolerate Bipap overnight. 94% on room air. Patient is sinus rhythm on monitor, remains on cardene through peripheral IV.
Asked IV Team to assess for better access. Patient has 1800 yariel diet, is using urinal in bed. Has been very impulsive through the night. bed alarm on. Reviewed activity restrictions, asked patient to ring prior to getting OOB for safety. bed
in lowest setting.
[2023-10-02 07:56] LABS: Glucose - Point of Care 216 mg/dl (70-99)
--- NOTE | 2023-10-02 08:20 | W.PN.INTV ---
Today's Communication / Plan
Recommendations
He has been successfully weaned off of Cardene drip
Try CPAP tonight to see if he tolerates this
Goal BG >100 and <180
We will arrange for outpatient pulmonary follow-up.
Patient stable for downgrade out of ICU. Follow Up Clerk/Pulmonary service will now sign off. Please reconsult if there are any additional questions/concerns, or if patient's respiratory status deteriorates.
Assessment
-
67 year old male with history of hypertension, obesity, medical noncompliance (has not seen a doctor in 13 years) presenting to ER for altered mental status/lethargy/slurring speech over the past week. In ER, initial blood pressure noted to be
242/162. Labetalol was attempted twice without effect. Patient was placed on Cardene gtt with subsequent improvement. CT head noted no acute abnormalities signs of chronic microvascular ischemic disease possible chronic infarct/ex vacuo
dilatation right parietal lobe. Admitted to ICU for cardene gtt.
Impression:
Hypertensive emergency requiring cardene gtt now weaned off
Possible old CVA noted on imaging
Hyperglycemia suspect diabetes
Suspect MITCHEL, + snoring/apneas/EDS
Slurred speech with reduced cognition - due to multifocal acute/subacute infarction
Difficulty ambulating/lethargy
Hypokalemia
HLD
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
Obesity, BMI 38
Does not follow with medical care routinely
Plan
Change in MS noted, ongoing
CT head notes chronic microvascular ischemic disease possible chronic infarct right parietal lobe
Aspirin/statin
Denies pain at this time.
Pain/sedation: MSAS/phenobarb taper--this was stopped by 's request
Drinks about 2-3 beers dailythis was noted by patient
adamant that he does not drinksee note below
Neuro following
Hypertensive emergency noted, placed on Cardene gtt which has now been weaned off this AM
Cardio following--BP management ongoing
Cardiac history reviewed--HTN, tried on Lisinopril as OP
No prior ECHO obtained in past, can obtain new baseline study--reviewed stable
Changed IV lopressor to labetalol PRN
Oxygen needs: stable on RA
Prior history of lung disease: none noted, smoking history noted
COPD suspected, can obtain PFT as OP
He is a former smoker, 1/2-1 PPD for 30 years, quit around age 52.
>15 years/quit date, does not qualify for yearly screening
Supplemental O2 as indicated to maintain sats > 89%
Overnight O2 study reviewed, will need PSG as OP for snoring/EDS/apneas
Not tolerating BIPAP --> will try CPAP tonight to see if he tolerates this better
Advance diet
Aspiration precautions, HOB > 30 degrees
Speech therapy eval can be considered if at elevated risk
GI prophylaxis if indicated for mechanical ventilation >48 hours, prior history of GERD, stress ulcer formation in the critically ill
Creat at baseline, no history of renal disease
Void trials
Follow urine output, critical I/Os
Replete electrolytes as needed--replete K
No signs/symptoms suspicious for infectious etiology at this time
Observe off antibiotics for now
Follow fever trend, WBC count
CBC stable, no signs of bleeding or coagulopathy.
DVT prophylaxis as assessed based on risk, including mechanical SCDs
Can transfuse if indicated for Hb <7, plt < 10
No prior h/o diabetes or thyroid disease/known
Continue accuchecks PRN/SS coverage if needed
HbA1c 10.9%
Diabetic SURGICAL FIRST ASSISTANT -- for management
Patient stable for downgrade out of ICU. Follow Up Clerk/Pulmonary service will now sign off. Thank you for allowing us to be involved in the care of this patient. Please reconsult if there are any additional questions/concerns, or if patient's
respiratory status deteriorates.
Family Discussions
See 10/01/23- (see other note)
See 09/30/23- angry/upset, yelling at staff about her 's drinking history. She is adamant he does not drink at all, maybe 1-2 drinks on the weekends and that if he did have drinks she would know. She feels he cannot possibly be drinking
without her knowledge and is upset that she must repeatedly say this to everyone. She is upset that he is 'labeled as an alcoholic.' She thinks he is too confused to be truthful about his history. He had told me yesterday that he smokes 1/2 PPD
and drinks 2-3 drinks almost every day, usually beers and states his has 2-3 glasses of wine as well. She does not believe this to be true. When asked her about stopping treatment in relationship to potential ETOH w/d and risk of
seizure/coma/ his now states if that she wants treatment. We will will proceed with treatment/taper in the event his history is true. This conversation was witnessed by CCRN, admin, CM and security.
Diagnostic Data
Chest X-Ray:
CT Scan: HEAD 09/28/23- No acute intracranial abnormality. Moderate hypoattenuation and heterogeneity of the periventricular and deep white matter, most likely secondary to chronic microvascular ischemic disease. More focal area of hypoattenuation
within the posterior right parietal lobe which may represent a chronic infarct/ex vacuo dilatation.
Echo: 09/29/23- LV ejection fraction is 70-75% by visual assessment. Moderate concentric left ventricular hypertrophy. Normal right ventricular size and function. Aortic valve sclerosis without stenosis.
Dilated aortic root with normal ascending aorta. No prior study available for comparison.
PFT's:
Reports and relevant images were personally reviewed.
-----
Total time spent today was 55 minutes for this encounter. Time includes reviewing laboratory test/imaging results, reviewing pertinent medical records, obtaining and reviewing medical history, performing an appropriate exam, ordering medications,
tests and procedures. Time also includes documentation of this encounter, coordinating patient care and communicating with other healthcare professionals. Total time does not include separately billed tests performed on this date of service.
Subjective Dataa
Subjective Data
Date of Service:
Date of Service: October 02, 2023
Chief Complaint: Follow Up Clerk Follow Up
Subjective:
Cardene gtt weaned off since 9AM today. Took off his BiPAP mask last night. HR 82, BP 143/90 and SpO2 95% on room air. No acute events reported overnight. Denies chest pain, fevers or chills.
Review of Systems
General: Other (Negative unless mentioned above)
Objective Data
Data Reviewed
Vital Signs / I&O / Oxygen:
Vital Signs
Temp Pulse Resp BP Pulse Ox
98.1 F 85 21 155/83 95
10/02/23 07:51 10/02/23 10:00 10/02/23 10:00 10/02/23 10:00 10/02/23 10:00
Intake and Output
10/01/23 10/02/23 10/03/23
06:59 06:59 06:59
Intake Total 1972.0 / 2047.0 2400.0 / 2450.0 315 / 315
Output Total 1100 / 1100 895 / 895
Balance 872.0 / 947.0 1505.0 / 1555.0 315 / 315
SaO2 95
Nasal Cannula flow liters per 2
minute
Physical Exam
General: Comfortable and Other (NAD)
HEENT: Normocephalic and Anicteric
Cardiovascular: S1-S2 and Peripheral Edema (Negative)
Respiratory: Clear, Wheeze (n), Crackles (n) and Non-Labored Respirations
GI: Soft, Non Distended and Non Tender
Neurology: AO x 3, No Motor Deficits, Tremors and Other (mildly confused but able to answer questions)
Skin: Warm, Dry and Good Color
Labs/Micro/Reports
Lab Data
10/02/23 05:33
10/02/23 05:33
Microbiology
09/30/23 17:52 Blood/Venous Blood Culture - Preliminary
No Growth in 24 hours- Final report to follow
09/30/23 17:44 Blood/Venous Blood Culture - Preliminary
No Growth in 24 hours- Final report to follow
[2023-10-02] MEDS: NOVOLOG FLEXPEN SC (08:34)
[2023-10-02] MEDS: NOVOLOG FLEXPEN-MODERATE RESISTANCE 3 UNITS SC (08:40)
[2023-10-02] MEDS: NOVOLOG FLEXPEN 12 UNITS SC ×3 (08:40→17:31)
--- NOTE | 2023-10-02 08:42 | W.PN.HOSP.TC ---
Today's Communication/Plan
-
Stable for telemetry
Assessment / Plan
Assessment / Plan
HPI: 67 male history hypertension obesity lost to follow-up has not seen a doctor in 13 years brought in by family due to concerns altered mental status lethargy falling asleep in the middle of the day slurring speech progressive for the last month
acutely worsening over the last week. Denies headache lightheadedness fevers chills nausea vomiting diarrhea constipation chest abdomen pain palpitations. Reports polyuria polyphagia polydipsia. also reports severe snoring at night patient
occasionally stops breathing while sleeping. Never formally diagnosed with sleep apnea but strongly suspected. ED eval was significant for hypertensive urgency/emergency initial blood pressure 242/162. Labetalol was attempted twice without
effect. Patient was placed on Cardene gtt. with subsequent improvement. Rest of vital signs stable afebrile on room air. EKG sinus rhythm with first-degree block nonspecific ST-T abnormalities. CT head noted no acute abnormalities signs of
chronic microvascular ischemic disease possible chronic infarct/ex vacuo dilatation right parietal lobe. NIH scale 0 no significant signs of stroke at this time.
#Hypertensive urgency emergency
Appreciate cardiology and signal and communications maintainer input
Status post Cardene drip, continue amlodipine to 10 mg daily, continue valsartan 80 mg twice daily, hydrochlorothiazide 25 mg daily
Start hydralazine 100 mg 3 times daily, Aldactone 25 mg daily
Stable for telemetry
#Acute�subacute infarct
#Old infarcts
Appreciate neurology input, continue aspirin 81 mg that was started in the hospital
Neurology also recommends Plavix 75 mg daily for 21 days through 10/22/2023
Started atorvastatin 40 mg at bedtime, PT/OT, control blood pressure
Treat new onset diabetes as below
#Subacute encephalopathy
Likely due to stroke
B12/TSH normal
There is a questionable history of alcohol use, denies
Continue to monitor
#Hyperlipidemia
Started atorvastatin 40 mg at bedtime
#Hypokalemia
Repleted and resolved
#New onset type 2 diabetes, hemoglobin A1c 10.9
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
Started on metformin, continue sliding scale insulin, diabetes education
#Likely obstructive sleep apnea
Outpatient sleep study recommended
#Leukocytosis
Afebrile, no signs or symptoms of infection
UA/1 view chest x-ray negative
Monitor off antibiotics
#Obesity due to excess calories
Affects all aspects of care
DVT prophylaxis Lovenox
Full code
Updated at bedside 10/01
Total time spent to see the patient on the floor, examine the patient, review data and lab results, discuss treatment plan with patient, nursing staff around 50 minutes.
Physical Exam
General: Obese, no acute distress
HEENT: Normocephalic, Atraumatic, EOMI, MMM
Respiratory: Clear to Auscultation bilaterally
Cardiac: Normal S1/S2, Regular Rate and Rhythm
GI: Soft, Nontender, Nondistended, Normal Bowel Sounds
Extremities: No Clubbing, Cyanosis, or Edema
Neuro: Slow to respond
Psych: Calm, Cooperative
Derm: No Visible lesions
Anticipated Discharge: 24 - 48 hours
Subjective/Interval History
-
Date of Service: October 01, 2023
No acute events. Patient denies chest pain, shortness of breath, or palpitations. No fever, no vomiting.
Objective Data
-
Vital Signs:
Vital Signs
Temp Pulse Resp BP Pulse Ox
98.0 F 87 24 146/84 94
10/01/23 15:11 10/01/23 16:45 10/01/23 16:45 10/01/23 16:45 10/01/23 16:45
I&O
09/30/23 10/01/23 10/02/23
06:59 06:59 06:59
Intake Total 1494.5 / 1634.0 1972.0 / 2047.0 1167.5 / 1167.5
Output Total 810 / 810 1100 / 1100
Balance 684.5 / 824.0 872.0 / 947.0 1167.5 / 1167.5
[2023-10-02 09:07] LABS: Aldosterone, Serum 15.3 ng/dL; Aldosterone/Renin Activ Ratio 2.2 ratio (<=25.0); Renin Activity Results 6.9 ng/mL/hr
--- NOTE | 2023-10-02 09:29 | PTCARENOTE ---
cardene gtt titrated off.
--- NOTE | 2023-10-02 11:30 | PTCARENOTE ---
Diabetes Education- Follow up visit with Ba and Leeanne. Asked numerous questions to evaluate understanding of information from yesterday. Ba had no recollection, Leeanne able to answer all questions correctly. Reviewed insulin pen with practice x2
with Ba, he is unable to retain the process but will follow step by step instructions. I feel a little better understanding than yesterday. Questions answered. Updates to Gris Dickey RN. I will follow up on Thursday if Ba remains an inpt.
--- NOTE | 2023-10-02 11:43 | W.PN.CD ---
Addendum entered and electronically signed by Dario Flores MD 10/02/23 12:41:
Given that hydralazine is now just started will NOT increase ARB at this time.
Original Note:
Today's Communication / Plan
-
Agree with addition of hydralazine
Will add Aldactone
Will increase ARB
Will need BMP 2 and 4 weeks after discharge with the use of Aldactone
Impression / Plan
-
67M with limited medical care presenting with 'new' severe hypertension, diabetes mellitus (HgbA1c 10.9%), and mental status changes.
HTN Emergency
-BP improving (hydralazine added)
-He presented with change in mental status.
Strokes
- I would not pursue ANTHONY or prolonged telemetry
- I would presume HTN'sive small vessel etiology
- Risk factor control including DM/HTN/Lipids
- Antiplatelets per neurology
Type II DM, with hyperglycemia, new diagnosis, Hgba1c 10.9%.
Dyslipidemia
Suspected MITCHEL
Obesity, BMI 38, he would benefit from weight loss
Subjective: No CP or dyspnea
Echo 09/29/2023: Normal EF, moderate LVH, aortic sclerosis, SOV 4.2 cm
Physical Exam
Vital Signs/Labs
Vital Signs
Temp Pulse Resp BP Pulse Ox
97.6 F 78 20 143/83 95
10/02/23 11:19 10/02/23 10:30 10/02/23 10:30 10/02/23 10:30 10/02/23 10:30
10/01/23 10/02/23 10/03/23
06:59 06:59 06:59
Actual Weight 123 kg 123.3 kg
10/02/23 05:33
10/02/23 05:33
Magnesium 1.5 mg/dl (1.6-2.3) L 10/02/23 05:33
Triglycerides 314 mg/dl (10-149) H 09/29/23 05:16
LDL Cholesterol, Calc 123 mg/dl 09/29/23 05:16
VLDL Cholesterol, Calc 62 mg/dl (0-30) H 09/29/23 05:16
HDL Cholesterol 34 mg/dl 09/29/23 05:16
10/01/23
03:44
Gaw-G-Hnimccnjmvd Pept 139
Physical Exam
Constitutional: No acute distress
EENT: Anicteric
Cardiovascular: Rhythm & rate is regular and Pedal edema is absent
Respiratory: Respiratory effort normal and Lungs clear to auscul.
GI: Soft and Distention absent
Neuro/Psych: Alert
Data Reviewed
-
Date of Service: October 02, 2023
[2023-10-02 11:45] LABS: Glucose - Point of Care 139 mg/dl (70-99)
[2023-10-02] MEDS: MAGNESIUM OXIDE 500 MG PO (12:00)
[2023-10-02] MEDS: KLOR-CON 40 MEQ PO (12:00)
[2023-10-02] MEDS: APRESOLINE 100 MG PO ×3 (12:00→21:33)
[2023-10-02] MEDS: NOVOLOG FLEXPEN-MODERATE RESISTANCE SC (12:02)
--- NOTE | 2023-10-02 13:34 | PTCARENOTE ---
spoke with Dr. Floers regarding patient's new hydralazine and spironolactone. reviewed BP and medications. Ok to start both, will administer in MAR
[2023-10-02] MEDS: ALDACTONE 25 MG PO (13:35)
--- NOTE | 2023-10-02 13:38 | CM ---
CM following re: discharge planning.
Discussed in Rounds, reviewed pt's chart, pt's spouse at bedside. Neurology and Cardiology following.
Pt lives with spouse 2SH, 2 steps to enter, has 2 supportive children. 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
PT and OT evaluations noted - home PT vs no needs recommended. per PT, pt's participation is limited due to high BP.
D/c plan: home with anticipated no needs. Family to transport at discharge.
CM will follow with discharge plan updates as hospitalization progresses
[2023-10-02] MEDS: MAGNESIUM SULFATE 100 IV (14:32)
[2023-10-02 17:00] LABS: Glucose - Point of Care 157 mg/dl (70-99)
--- NOTE | 2023-10-02 17:06 | PTCARENOTE ---
transferred patient to room 422. report given, NIHSS handoff completed with receiving RN.
[2023-10-02] MEDS: LOVENOX 40 MG SC (17:31)
[2023-10-02] MEDS: LIPITOR 40 MG PO (17:31)
[2023-10-02] MEDS: NOVOLOG FLEXPEN-MODERATE RESISTANCE 1 UNITS SC (17:32)
[2023-10-02 21:33] LABS: Glucose - Point of Care 141 mg/dl (70-99)
[2023-10-02] MEDS: LANTUS 0.239999999999999991 UNITS SC (21:34)
[2023-10-03] VITALS (8 sets, daily range): BP systolic 118–167; BP diastolic 84–113; PULSE 83–85; O2SAT 95
[2023-10-03 06:45] LABS: Hematocrit 42.8 % (39.0-52.0); Hemoglobin 15.5 g/dL (13.0-18.0); Mean Corp Hgb Conc. 36.2 g/dL (33.0-37.0); Mean Corpuscular Hgb 30.4 pg (27.0-31.0); Mean Corpuscular Volume 83.9 fL (80.0-94.0); Platelet Count 211 10^3/uL (130-400); Red Cell Dist. Width 13.1 % (11.5-14.5); White Blood Cell Count 11.9 10^3/uL (4.8-10.8)
[2023-10-03 07:06] LABS: Blood Urea Nitrogen 19 mg/dl (9-20); Calcium 9.7 mg/dl (8.4-10.2); Carbon Dioxide 24 mmol/L (22-30); Chloride 104 mmol/L (98-107); Estimated Creatinine Clearance 88 ml/min; Glucose 141 mg/dl (70-99); Magnesium 1.5 mg/dl (1.6-2.3); Potassium 3.7 mmol/L (3.5-5.1); Sodium 137 mmol/L (135-145); eGFR > 60.00
[2023-10-03 08:01] LABS: Glucose - Point of Care 133 mg/dl (70-99)
[2023-10-03] MEDS: VITAMIN B1 100 MG PO ×2 (08:24→19:22)
[2023-10-03] MEDS: NORVASC 10 MG PO (08:24)
[2023-10-03] MEDS: DIOVAN 80 MG PO ×2 (08:24→19:22)
[2023-10-03] MEDS: PLAVIX 75 MG PO (08:25)
[2023-10-03] MEDS: GLUCOPHAGE 500 MG PO ×2 (08:25→17:41)
[2023-10-03] MEDS: LOW STRENGTH ASPIRIN 81 MG PO (08:25)
[2023-10-03] MEDS: APRESOLINE 100 MG PO ×3 (08:25→21:32)
[2023-10-03] MEDS: NOVOLOG FLEXPEN-MODERATE RESISTANCE SC ×3 (08:26→16:50)
[2023-10-03] MEDS: ALDACTONE 25 MG PO (08:26)
[2023-10-03] MEDS: ORETIC 25 MG PO (08:26)
--- NOTE | 2023-10-03 08:41 | W.PN.HOSP.TC ---
Today's Communication/Plan
-
see bold
Assessment / Plan
Assessment / Plan
HPI: 67 male history hypertension obesity lost to follow-up has not seen a doctor in 13 years brought in by family due to concerns altered mental status lethargy falling asleep in the middle of the day slurring speech progressive for the last month
acutely worsening over the last week. Denies headache lightheadedness fevers chills nausea vomiting diarrhea constipation chest abdomen pain palpitations. Reports polyuria polyphagia polydipsia. also reports severe snoring at night patient
occasionally stops breathing while sleeping. Never formally diagnosed with sleep apnea but strongly suspected. ED eval was significant for hypertensive urgency/emergency initial blood pressure 242/162. Labetalol was attempted twice without
effect. Patient was placed on Cardene gtt. with subsequent improvement. Rest of vital signs stable afebrile on room air. EKG sinus rhythm with first-degree block nonspecific ST-T abnormalities. CT head noted no acute abnormalities signs of
chronic microvascular ischemic disease possible chronic infarct/ex vacuo dilatation right parietal lobe. NIH scale 0 no significant signs of stroke at this time.
#Hypertensive urgency emergency
Appreciate cardiology and curriculum facilitator input
Status post Cardene drip, continue amlodipine to 10 mg daily, continue valsartan 80 mg twice daily, hydrochlorothiazide 25 mg daily
Started hydralazine 100 mg 3 times daily, Aldactone 25 mg daily 10/01
#Acute�subacute infarct
#Old infarcts
Appreciate neurology input, continue aspirin 81 mg that was started in the hospital
Neurology also recommends Plavix 75 mg daily for 21 days through 10/22/2023
Started atorvastatin 40 mg at bedtime, PT/OT, control blood pressure
Treat new onset diabetes as below
PT rec HH vs outpt PT
#Subacute encephalopathy
Likely due to stroke
B12/TSH normal
There is a questionable history of alcohol use, denies
Continue to monitor
#Hyperlipidemia
Started atorvastatin 40 mg at bedtime
#Hypokalemia
Repleted and resolved
#Hypomagnesemia
Continue to replete by IV, recheck a.m. labs
#Left upper extremity edema
From infiltrated IV
Check Dopplers for completeness sake
Continue supportive care
#New onset type 2 diabetes, hemoglobin A1c 10.9
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
Started on metformin, continue sliding scale insulin, diabetes education
#Likely obstructive sleep apnea
Outpatient sleep study recommended
#Leukocytosis
Afebrile, no signs or symptoms of infection
UA/1 view chest x-ray negative
Monitor off antibiotics
#Obesity due to excess calories
Affects all aspects of care
DVT prophylaxis Lovenox
Full code
Updated at bedside 10/02
Total time spent to see the patient on the floor, examine the patient, review data and lab results, discuss treatment plan with patient, nursing staff around 51 minutes.
Physical Exam
General: Obese, no acute distress
HEENT: Normocephalic, Atraumatic, EOMI, MMM
Respiratory: Clear to Auscultation bilaterally
Cardiac: Normal S1/S2, Regular Rate and Rhythm
GI: Soft, Nontender, Nondistended, Normal Bowel Sounds
Extremities: No Clubbing, Cyanosis, or Edema
Neuro: Slow to respond
Psych: Calm, Cooperative
Derm: No Visible lesions
Anticipated Discharge: 24 - 48 hours
Subjective/Interval History
-
Date of Service: October 03, 2023
No chest pain, shortness of breath, palpitations. No fever, no vomiting.
Objective Data
-
Labs:
Laboratory Results
10/03/23
06:03
WBC 11.9 H
Hgb 15.5
Hct 42.8
Plt Count 211
Sodium 137
Potassium 3.7
Chloride 104
Carbon Dioxide 24
BUN 19
Creatinine 1.1
Glucose 141 H
Calcium 9.7
Vital Signs:
Vital Signs
Temp Pulse Resp BP Pulse Ox
97.8 F 78 18 167/113 97
10/03/23 07:00 10/03/23 08:24 10/03/23 07:00 10/03/23 08:24 10/03/23 07:00
I&O
10/02/23 10/03/23 10/04/23
06:59 06:59 06:59
Intake Total 2400.0 / 2450.0 1095 / 1095
Output Total 895 / 895
Balance 1505.0 / 1555.0 1095 / 1095
[2023-10-03] MEDS: NOVOLOG FLEXPEN 12 UNITS SC ×3 (09:32→16:51)
[2023-10-03] MEDS: MAGNESIUM SULFATE 100 IV (09:42)
--- NOTE | 2023-10-03 10:09 | W.PN.CD ---
Addendum entered and electronically signed by Dario Flores MD 10/03/23 12:04:
I saw and examined the patient.
The REWRITE EDITOR's note was reviewed and I agree with the note.
Comment: No change in HTN regimen. As amlodipine takes time for full effect we might find that hydralazine will be able to be reduced and/or stopped. ARB increase is next step if needed.
Lifestyle changes: DASH diet, low Na+ diet, exercise, and meaningful reduction in BMI will aid in BP and DM control and may allow reduction in meds
HTN regimen currently:
Amlodipine [Norvasc] 10 mg PO DAILY
HydrALAZINE [Apresoline] 100 mg PO TID
Hydrochlorothiazide [Oretic] 25 mg PO DAILY
Spironolactone [Aldactone] 25 mg PO DAILY
Valsartan [Diovan] 80 mg PO BID
Original Note:
Today's Communication / Plan
-
continue HCTZ, Hydralazine, Aldactone, and Valsartan
ASA, Plavix, Lipitor per neurology
Impression / Plan
-
67M with limited medical care presenting with 'new' severe hypertension, diabetes mellitus (HgbA1c 10.9%), and mental status changes.
HTN Emergency
- BP improving
- continue HCTZ, Hydralazine, Aldactone, and Valsartan
- he presented with change in mental status
Strokes
- not pursue ANTHONY or prolonged telemetry
- presume hypertensive small vessel etiology
- Risk factor control including DM/HTN/Lipids, continue meds
- Antiplatelets ASA/Plavix per neurology
Type II DM - new diagnosis.
- Hgba1c 10.9%.
- per primary team/diabetes management.
Dyslipidemia - LDL 123, HDL 34, TG 314, TC 219.
- now on Lipitor 40mg QHS
Suspected MITCHEL - outpatient evaluation
Obesity, BMI 38, he would benefit from weight loss
Subjective:
denies cardiac complaints today.
spoke with about plan and follow up.
Echo 09/29/2023: Normal EF, moderate LVH, aortic sclerosis, SOV 4.2 cm
Physical Exam
Vital Signs/Labs
Vital Signs
Temp Pulse Resp BP Pulse Ox
97.8 F 78 18 167/113 97
10/03/23 07:00 10/03/23 08:24 10/03/23 07:00 10/03/23 08:24 10/03/23 07:00
10/02/23 10/03/23 10/04/23
06:59 06:59 06:59
Actual Weight 123.3 kg
10/03/23 06:03
10/03/23 06:03
Magnesium 1.5 mg/dl (1.6-2.3) L 10/03/23 06:03
Triglycerides 314 mg/dl (10-149) H 09/29/23 05:16
LDL Cholesterol, Calc 123 mg/dl 09/29/23 05:16
VLDL Cholesterol, Calc 62 mg/dl (0-30) H 09/29/23 05:16
HDL Cholesterol 34 mg/dl 09/29/23 05:16
10/01/23
03:44
[id number] Pept 139
Physical Exam
Constitutional: No acute distress
EENT: Anicteric and Moist mucous membranes
Cardiovascular: Rhythm & rate is regular
Respiratory: Respiratory effort normal and Lungs clear to auscul.
GI: Soft, Non tender and Normal bowel sounds
Neuro/Psych: AO x 3
Other: Skin (warm, dry)
Data Reviewed
-
Date of Service: October 03, 2023
Medical Decision Making: Reviewed Test Results
EKG: Tracing Personally Visualized and interpreted
Echo: Report Reviewed by me
Labs: Labs Reviewed by me
Old Records: Reviewed
[2023-10-03 11:56] LABS: Glucose - Point of Care 109 mg/dl (70-99)
[2023-10-03] MEDS: NOVOLOG FLEXPEN SC (12:04)
--- NOTE | 2023-10-03 13:48 | PTCARENOTE ---
Dr Tran aware that pt's is concerned about his left hand/arm. Both are swollen. She states it was from a previous IV. both are warm and he has a strong radial pulse. Dr Tran ordered and ultrasound to r/o a clot. Pt and updated. arm is elevate
with ice and limb alert bracelet was placed.
[2023-10-03 16:43] LABS: Glucose - Point of Care 127 mg/dl (70-99)
[2023-10-03] MEDS: LOVENOX 40 MG SC (17:41)
[2023-10-03] MEDS: LIPITOR 40 MG PO (17:41)
[2023-10-03 21:14] LABS: Glucose - Point of Care 148 mg/dl (70-99)
[2023-10-03] MEDS: LANTUS 0.239999999999999991 UNITS SC (21:31)
[2023-10-04] VITALS (10 sets, daily range): BP systolic 114–170; BP diastolic 67–104; PULSE 74–76
[2023-10-04 07:28] LABS: Hemoglobin 15.3 g/dL (13.0-18.0); Mean Corp Hgb Conc. 34.8 g/dL (33.0-37.0); Mean Corpuscular Hgb 30.2 pg (27.0-31.0); Mean Platelet Volume 11.3 fL (7.4-10.4); Platelet Count 218 10^3/uL (130-400); Red Blood Cell Count 5.06 10^6/uL (4.70-6.10); Red Cell Dist. Width 13.2 % (11.5-14.5); White Blood Cell Count 10.8 10^3/uL (4.8-10.8)
[2023-10-04 07:39] LABS: Glucose - Point of Care 134 mg/dl (70-99)
--- NOTE | 2023-10-04 07:55 | W.PN.HOSP.TC ---
Today's Communication/Plan
-
see bold
Assessment / Plan
Assessment / Plan
HPI: 67 male history hypertension obesity lost to follow-up has not seen a doctor in 13 years brought in by family due to concerns altered mental status lethargy falling asleep in the middle of the day slurring speech progressive for the last month
acutely worsening over the last week. Denies headache lightheadedness fevers chills nausea vomiting diarrhea constipation chest abdomen pain palpitations. Reports polyuria polyphagia polydipsia. also reports severe snoring at night patient
occasionally stops breathing while sleeping. Never formally diagnosed with sleep apnea but strongly suspected. ED eval was significant for hypertensive urgency/emergency initial blood pressure 242/162. Labetalol was attempted twice without
effect. Patient was placed on Cardene gtt. with subsequent improvement. Rest of vital signs stable afebrile on room air. EKG sinus rhythm with first-degree block nonspecific ST-T abnormalities. CT head noted no acute abnormalities signs of
chronic microvascular ischemic disease possible chronic infarct/ex vacuo dilatation right parietal lobe. NIH scale 0 no significant signs of stroke at this time.
#Hypertensive urgency emergency
Appreciate cardiology and sharples machine operator input
Status post Cardene drip, continue amlodipine to 10 mg daily, hydrochlorothiazide 25 mg daily
Started hydralazine 100 mg 3 times daily, Aldactone 25 mg daily 10/01
Cardiology increased valsartan to 160 mg twice a day, started labetalol 100 mg twice a day 10/03
#Acute�subacute infarct
#Old infarcts
Appreciate neurology input, continue aspirin 81 mg that was started in the hospital
Neurology also recommends Plavix 75 mg daily for 21 days through 10/22/2023
Started atorvastatin 40 mg at bedtime, PT/OT, control blood pressure
Treat new onset diabetes as below
PT rec HH vs outpt PT
#Subacute encephalopathy
Likely due to stroke
B12/TSH normal
There is a questionable history of alcohol use, denies
Continue to monitor
#Hyperlipidemia
Started atorvastatin 40 mg at bedtime
#Hypokalemia
Repleted and resolved
#Hypomagnesemia
Continue to replete by IV, recheck a.m. labs
#Left upper extremity edema
From infiltrated IV
Check Dopplers for completeness sake
Continue supportive care
#New onset type 2 diabetes, hemoglobin A1c 10.9
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
Started on metformin, continue sliding scale insulin, diabetes education
#Likely obstructive sleep apnea
Outpatient sleep study recommended
#Leukocytosis
Afebrile, no signs or symptoms of infection
UA/1 view chest x-ray negative
Monitor off antibiotics
#Obesity due to excess calories
Affects all aspects of care
DVT prophylaxis Lovenox
Full code
Updated at bedside 10/02
Total time spent to see the patient on the floor, examine the patient, review data and lab results, discuss treatment plan with patient, nursing staff around 35 minutes.
Physical Exam
General: Obese, no acute distress
HEENT: Normocephalic, Atraumatic, EOMI, MMM
Respiratory: Clear to Auscultation bilaterally
Cardiac: Normal S1/S2, Regular Rate and Rhythm
GI: Soft, Nontender, Nondistended, Normal Bowel Sounds
Extremities: No Clubbing, Cyanosis, or Edema
Neuro: Slow to respond
Psych: Calm, Cooperative
Derm: No Visible lesions
Anticipated Discharge: 24 - 48 hours
Subjective/Interval History
-
Date of Service: October 04, 2023
No acute events, no fever, no vomiting. No chest pain, no shortness of breath.
Objective Data
-
Labs:
Laboratory Results
10/04/23
06:26
WBC 10.8
Hgb 15.3
Hct 44.0
Plt Count 218
Sodium Pending
Potassium Pending
Chloride Pending
Carbon Dioxide Pending
BUN Pending
Creatinine Pending
Glucose Pending
Calcium Pending
Vital Signs:
Vital Signs
Temp Pulse Resp BP Pulse Ox
97.5 F 80 18 146/84 96
10/04/23 03:12 10/04/23 03:12 10/04/23 03:12 10/04/23 03:12 10/04/23 03:12
I&O
10/03/23 10/04/23 10/05/23
06:59 06:59 06:59
Intake Total 1095 / 1095 1480 / 1480
Balance 1095 / 1095 1480 / 1480
[2023-10-04 07:59] LABS: Blood Urea Nitrogen 19 mg/dl (9-20); Calcium 9.9 mg/dl (8.4-10.2); Carbon Dioxide 27 mmol/L (22-30); Chloride 101 mmol/L (98-107); Estimated Creatinine Clearance 88 ml/min; Glucose 127 mg/dl (70-99); Magnesium 1.5 mg/dl (1.6-2.3); Sodium 136 mmol/L (135-145); eGFR > 60.00
[2023-10-04] MEDS: NOVOLOG FLEXPEN-MODERATE RESISTANCE SC ×2 (08:00→13:02)
[2023-10-04] MEDS: VITAMIN B1 100 MG PO ×2 (08:24→19:41)
[2023-10-04] MEDS: LOW STRENGTH ASPIRIN 81 MG PO (08:46)
[2023-10-04] MEDS: DIOVAN 80 MG PO (08:46)
[2023-10-04] MEDS: ORETIC 25 MG PO (08:46)
[2023-10-04] MEDS: ALDACTONE 25 MG PO (08:46)
[2023-10-04] MEDS: NORVASC 10 MG PO (08:46)
[2023-10-04] MEDS: APRESOLINE 100 MG PO ×3 (08:46→22:31)
[2023-10-04] MEDS: PLAVIX 75 MG PO (08:46)
[2023-10-04] MEDS: GLUCOPHAGE 500 MG PO ×2 (08:46→16:48)
[2023-10-04] MEDS: MAGNESIUM SULFATE 50 IV (10:03)
[2023-10-04] MEDS: NOVOLOG FLEXPEN 12 UNITS SC ×3 (10:03→17:14)
--- NOTE | 2023-10-04 10:36 | W.PN.CD ---
Today's Communication / Plan
-
Will increase Valsartan form 80 bid to 160 bid
Will add labetalol 100 bid
Impression / Plan
-
67M with limited medical care presenting with 'new' severe hypertension, diabetes mellitus (HgbA1c 10.9%), and mental status changes.
HTN
- BP improving but not near goal
- continue HCTZ, Hydralazine, Aldactone, and => increase Valsartan and add labetolol
- he presented with change in mental status
Strokes
- Will not pursue ANTHONY or prolonged telemetry
- presume hypertensive small vessel etiology
- Risk factor control including DM/HTN/Lipids, continue meds
- Antiplatelets ASA/Plavix per neurology
Type II DM - new diagnosis.
- Hgba1c 10.9%.
- per primary team/diabetes management.
Dyslipidemia - LDL 123, HDL 34, TG 314, TC 219.
- now on Lipitor 40mg QHS
Suspected MITCHEL - outpatient evaluation
Obesity, BMI 38, he would benefit from weight loss
Subjective:
No CP or dyspnea
Echo 09/29/2023: Normal EF, moderate LVH, aortic sclerosis, SOV 4.2 cm
Physical Exam
Vital Signs/Labs
Vital Signs
Temp Pulse Resp BP Pulse Ox
97.7 F 73 14 170/104 98
10/04/23 07:20 10/04/23 07:20 10/04/23 07:20 10/04/23 07:20 10/04/23 07:20
10/04/23 06:26
10/04/23 06:26
Magnesium 1.5 mg/dl (1.6-2.3) L 10/04/23 06:26
Triglycerides 314 mg/dl (10-149) H 09/29/23 05:16
LDL Cholesterol, Calc 123 mg/dl 09/29/23 05:16
VLDL Cholesterol, Calc 62 mg/dl (0-30) H 09/29/23 05:16
HDL Cholesterol 34 mg/dl 09/29/23 05:16
10/01/23
03:44
Mpj-[id number]-[id number] Pept 139
Physical Exam
Constitutional: No acute distress
EENT: Anicteric
Cardiovascular: Rhythm & rate is regular and Pedal edema is absent
Respiratory: Respiratory effort normal and Lungs clear to auscul.
GI: Soft and Distention absent
Neuro/Psych: AO x 3
Data Reviewed
-
Date of Service: October 04, 2023
[2023-10-04] MEDS: TRANDATE 100 MG PO ×2 (10:47→19:41)
[2023-10-04 12:50] LABS: Glucose - Point of Care 108 mg/dl (70-99)
--- NOTE | 2023-10-04 15:51 | CM ---
progressive care manager spoke with patient and spouse at bedside and they would like visiting nurses, referral sent to [facility].
Plan; Home with [facility] when stable, referral sent to [facility].
[2023-10-04 16:38] LABS: Glucose - Point of Care 177 mg/dl (70-99)
[2023-10-04] MEDS: NOVOLOG FLEXPEN-MODERATE RESISTANCE 1 UNITS SC (17:14)
[2023-10-04] MEDS: LOVENOX 40 MG SC (17:16)
[2023-10-04] MEDS: LIPITOR 40 MG PO (17:16)
[2023-10-04] MEDS: DIOVAN 160 MG PO (19:41)
[2023-10-04 22:31] LABS: Glucose - Point of Care 130 mg/dl (70-99)
[2023-10-04] MEDS: LANTUS 0.239999999999999991 UNITS SC (22:31)
[2023-10-05] VITALS (7 sets, daily range): BP systolic 102–152; BP diastolic 49–94; PULSE 70; O2SAT 97
--- NOTE | 2023-10-05 06:08 | W.PN.HOSP.TC ---
Today's Communication/Plan
-
Blood pressure control
Glycemic control
cont asa plavix statin
discharge planning home with home services
Assessment / Plan
Assessment / Plan
HPI: 67 male history hypertension obesity lost to follow-up has not seen a doctor in 13 years brought in by family due to concerns altered mental status lethargy falling asleep in the middle of the day slurring speech progressive for the last month
acutely worsening over the last week. Denies headache lightheadedness fevers chills nausea vomiting diarrhea constipation chest abdomen pain palpitations. Reports polyuria polyphagia polydipsia. also reports severe snoring at night patient
occasionally stops breathing while sleeping. Never formally diagnosed with sleep apnea but strongly suspected. ED eval was significant for hypertensive urgency/emergency initial blood pressure 242/162. Labetalol was attempted twice without
effect. Patient was placed on Cardene gtt. with subsequent improvement. Rest of vital signs stable afebrile on room air. EKG sinus rhythm with first-degree block nonspecific ST-T abnormalities. CT head noted no acute abnormalities signs of
chronic microvascular ischemic disease possible chronic infarct/ex vacuo dilatation right parietal lobe. NIH scale 0 no significant signs of stroke at this time.
#Hypertensive urgency emergency
Appreciate cardiology and lap winder input
Status post Cardene drip, continue amlodipine to 10 mg daily, hydrochlorothiazide 25 mg daily
Started on hydralazine 100 mg 3 times daily later discontinued as per cardio, Aldactone 25 mg daily 10/01
Cardiology increased valsartan to 160 mg twice a day, started labetalol 100 mg twice a day 10/03
#Acute�subacute infarct
#Old infarcts
Appreciate neurology input, continue aspirin 81 mg that was started in the hospital
Neurology also recommends Plavix 75 mg daily for 21 days through 10/22/2023
Started atorvastatin 40 mg at bedtime, PT/OT, control blood pressure
Treat new onset diabetes as below
PT rec outpt PT appreciated, case mgmt consult appreciated home services being arranged initially on discharge, eventual outpt PT/OT follow up.
#Subacute encephalopathy
Likely due to stroke
B12/TSH normal
Continue to monitor
#Hyperlipidemia
Started atorvastatin 40 mg at bedtime
#Hypokalemia
#Hypomagnesemia
Monitor and replete as necessary
#Left upper extremity edema
From infiltrated IV
Venous duplex appreciated superficial thrombophlebitis Nonocclusive thrombus within the left cephalic vein as described. No evidence of deep venous thrombosis in the left upper extremity as described above.
Since improved with conservative mgmt
#New onset type 2 diabetes, hemoglobin A1c 10.9
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
Started on metformin, continue sliding scale insulin, diabetes education
#Likely obstructive sleep apnea
Outpatient sleep study recommended
#Leukocytosis
Afebrile, no signs or symptoms of infection
UA/1 view chest x-ray negative
Monitor off antibiotics
leukocytosis resolving
#Obesity due to excess calories
Affects all aspects of care
DVT prophylaxis Lovenox
Full code
Updated over phone 10/04
Total time spent to see the patient on the floor, examine the patient, review data and lab results, discuss treatment plan with patient, nursing staff around 50 minutes.
Physical Exam
General: Obese, no acute distress
HEENT: Normocephalic, Atraumatic, EOMI, MMM
Respiratory: Clear to Auscultation bilaterally
Cardiac: Normal S1/S2, Regular Rate and Rhythm
GI: Soft, Nontender, Nondistended, Normal Bowel Sounds
Extremities: No Clubbing, Cyanosis, or Edema
Neuro: Slow mentation but AOx3
Psych: Calm, Cooperative
Derm: No Visible lesions
Anticipated Discharge: 24 - 48 hours
Subjective/Interval History
-
Date of Service: October 05, 2023
no acute distress resting comfortably in bed. overall reports feeling well. Denies new acute issues at this time. Left arm swelling from superficial thrombophlebitis improved.
Objective Data
-
Vital Signs:
Vital Signs
Temp Pulse Resp BP Pulse Ox
98.1 F 70 16 152/83 97
10/05/23 03:27 10/05/23 03:27 10/05/23 03:27 10/05/23 03:27 10/05/23 03:27
I&O
10/03/23 10/04/23 10/05/23
06:59 06:59 06:59
Intake Total 1095 / 1095 1480 / 1480 1440 / 1440
Balance 1095 / 1095 1480 / 1480 1440 / 1440
[2023-10-05 07:05] LABS: Glucose - Point of Care 133 mg/dl (70-99)
[2023-10-05] MEDS: NOVOLOG FLEXPEN-MODERATE RESISTANCE SC ×3 (07:37→16:22)
[2023-10-05 08:10] LABS: Magnesium 1.5 mg/dl (1.6-2.3)
[2023-10-05] MEDS: NOVOLOG FLEXPEN 12 UNITS SC ×3 (08:36→17:04)
[2023-10-05] MEDS: DIOVAN 160 MG PO ×2 (08:37→19:59)
[2023-10-05] MEDS: ALDACTONE 25 MG PO (08:37)
[2023-10-05] MEDS: NORVASC 10 MG PO (08:38)
[2023-10-05] MEDS: GLUCOPHAGE 500 MG PO ×2 (08:38→17:04)
[2023-10-05] MEDS: TRANDATE 100 MG PO ×2 (08:38→19:59)
[2023-10-05] MEDS: PLAVIX 75 MG PO (08:38)
[2023-10-05] MEDS: ORETIC 25 MG PO (08:38)
[2023-10-05] MEDS: VITAMIN B1 100 MG PO ×2 (08:38→19:58)
[2023-10-05] MEDS: LOW STRENGTH ASPIRIN 81 MG PO (08:38)
[2023-10-05 11:16] LABS: Glucose - Point of Care 142 mg/dl (70-99)
--- NOTE | 2023-10-05 11:55 | W.PN.CD ---
Today's Communication / Plan
-
stopped hydral monitor BP, concerned new BP meds will have significant effect on dropping BP so stopped Hydral
Impression / Plan
-
67M with limited medical care presenting with 'new' severe hypertension, diabetes mellitus (HgbA1c 10.9%), and mental status changes.
HTN
- BP improving but not near goal
- continue HCTZ, Hydralazine, Aldactone, and => increase Valsartan and add labetolol, stopped hydral, BP controlled
- he presented with change in mental status
Strokes
- Will not pursue ANTHONY or prolonged telemetry
- presume hypertensive small vessel etiology
- Risk factor control including DM/HTN/Lipids, continue meds
- Antiplatelets ASA/Plavix per neurology
Type II DM - new diagnosis.
- Hgba1c 10.9%.
- per primary team/diabetes management.
Dyslipidemia - LDL 123, HDL 34, TG 314, TC 219.
- now on Lipitor 40mg QHS
Suspected MITCHEL - outpatient evaluation
Obesity, BMI 38, he would benefit from weight loss
Subjective:
OVerall no new complaints feeling OK OOB ambulate
Echo 09/29/2023: Normal EF, moderate LVH, aortic sclerosis, SOV 4.2 cm
Physical Exam
Vital Signs/Labs
Vital Signs
Temp Pulse Resp BP Pulse Ox
97.6 F 64 18 132/81 94
10/05/23 11:09 10/05/23 11:09 10/05/23 11:09 10/05/23 11:09 10/05/23 11:09
10/04/23 06:26
10/04/23 06:26
Magnesium 1.5 mg/dl (1.6-2.3) L 10/05/23 07:16
Triglycerides 314 mg/dl (10-149) H 09/29/23 05:16
LDL Cholesterol, Calc 123 mg/dl 09/29/23 05:16
VLDL Cholesterol, Calc 62 mg/dl (0-30) H 09/29/23 05:16
HDL Cholesterol 34 mg/dl 09/29/23 05:16
10/01/23
03:44
[id number] Pept 139
Physical Exam
Constitutional: No acute distress
EENT: Anicteric
Cardiovascular: Rhythm & rate is regular and Pedal edema is absent
Respiratory: Respiratory effort normal and Lungs clear to auscul.
GI: Soft
Neuro/Psych: AO x 3
Data Reviewed
-
Date of Service: October 05, 2023
EKG: Tracing Personally Visualized and interpreted (sr)
Echo: Report Reviewed by me
Labs: Labs Reviewed by me
[2023-10-05] MEDS: MAGNESIUM SULFATE 50 IV (12:50)
[2023-10-05 13:23] LABS: Blood Urea Nitrogen 23 mg/dl (9-20); Calcium 10.1 mg/dl (8.4-10.2); Carbon Dioxide 24 mmol/L (22-30); Chloride 100 mmol/L (98-107); Estimated Creatinine Clearance 81 ml/min; Glucose 130 mg/dl (70-99); Potassium 3.8 mmol/L (3.5-5.1); Sodium 135 mmol/L (135-145); eGFR > 60.00
[2023-10-05 16:19] LABS: Glucose - Point of Care 141 mg/dl (70-99)
[2023-10-05] MEDS: LOVENOX 40 MG SC (17:05)
[2023-10-05] MEDS: LIPITOR 40 MG PO (17:05)
[2023-10-05 21:17] LABS: Glucose - Point of Care 122 mg/dl (70-99)
[2023-10-05] MEDS: LANTUS 0.239999999999999991 UNITS SC (21:56)
[2023-10-06 03:12] VITALS: BP 133/96
[2023-10-06 07:00] VITALS: BP 138/93
--- NOTE | 2023-10-06 07:16 | W.PN.HOSP.TC ---
Today's Communication/Plan
-
discharge
Assessment / Plan
Assessment / Plan
HPI: 67 male history hypertension obesity lost to follow-up has not seen a doctor in 13 years brought in by family due to concerns altered mental status lethargy falling asleep in the middle of the day slurring speech progressive for the last month
acutely worsening over the last week. Denies headache lightheadedness fevers chills nausea vomiting diarrhea constipation chest abdomen pain palpitations. Reports polyuria polyphagia polydipsia. also reports severe snoring at night patient
occasionally stops breathing while sleeping. Never formally diagnosed with sleep apnea but strongly suspected. ED eval was significant for hypertensive urgency/emergency initial blood pressure 242/162. Labetalol was attempted twice without
effect. Patient was placed on Cardene gtt. with subsequent improvement. Rest of vital signs stable afebrile on room air. EKG sinus rhythm with first-degree block nonspecific ST-T abnormalities. CT head noted no acute abnormalities signs of
chronic microvascular ischemic disease possible chronic infarct/ex vacuo dilatation right parietal lobe. NIH scale 0 no significant signs of stroke at this time.
#Hypertensive urgency emergency
Appreciate cardiology and monotype caster input
Status post Cardene drip, continue amlodipine to 10 mg daily, hydrochlorothiazide 25 mg daily
Started on hydralazine 100 mg 3 times daily later discontinued as per cardio, Aldactone 25 mg daily 10/01
Cardiology increased valsartan to 160 mg twice a day (simplified to 320 mg daily on discharge), started labetalol 100 mg twice a day 10/03
10/05 cleared for discharge as per cardio
#Acute�subacute infarct
#Old infarcts
Appreciate neurology input, continue aspirin 81 mg that was started in the hospital
Neurology also recommends Plavix 75 mg daily for 21 days through 10/21/2023
Started atorvastatin 40 mg at bedtime, PT/OT, control blood pressure
Treat new onset diabetes as below
PT rec outpt PT appreciated, case mgmt consult appreciated home services being arranged initially on discharge, eventual outpt PT/OT/ST follow up.
#Subacute encephalopathy
Likely due to stroke
B12/TSH normal
Continue to monitor
#Hyperlipidemia
Started atorvastatin 40 mg at bedtime, continue
#Hypokalemia
#Hypomagnesemia
Monitor and replete as necessary
mild hypomagnesemia persistent, will start daily oral supplementation, outpatient follow up recommended
#Left upper extremity edema
From infiltrated IV
Venous duplex appreciated acute superficial thrombophlebitis Nonocclusive thrombus within the left cephalic vein. No evidence of deep venous thrombosis in the left upper extremity.
Since improved with conservative mgmt
#New onset type 2 diabetes, hemoglobin A1c 10.9
Diabetes nurse practitioner following, continue insulin adjustments as per diabetes INDUSTRIAL DIAMOND POLISHER, Lantus 24 U HS Novolog 12 U AC and Metformin 500 mg BID
#Likely obstructive sleep apnea
Outpatient sleep study recommended
#Leukocytosis
Afebrile, no signs or symptoms of infection
UA/1 view chest x-ray negative
Monitor off antibiotics
leukocytosis resolved
#Obesity due to excess calories
Affects all aspects of care
DVT prophylaxis Lovenox
Full code
Medically stable for discharge Home with home services and outpatient follow up recommendations.
Discussed with patient and his Leeanne at bedside.
Total Time Preparing Discharge __60 minutes including examination of the patient, summary of the hospital stay, instructions for continuing care to all relevant caregivers; and preparation of discharge records, prescriptions, and referral
forms if necessary.
Physical Exam
General: Obese, no acute distress
HEENT: Normocephalic, Atraumatic, EOMI, MMM
Respiratory: Clear to Auscultation bilaterally
Cardiac: Normal S1/S2, Regular Rate and Rhythm
GI: Soft, Nontender, Nondistended, Normal Bowel Sounds
Extremities: No Clubbing, Cyanosis, or Edema
Neuro: Slow mentation but AOx3
Psych: Calm, Cooperative
Derm: No Visible lesions
Anticipated Discharge: Today
Subjective/Interval History
-
Date of Service: October 06, 2023
Seen and examined at bedside in no acute distress sitting up comfortably in bed. Reports overall feeling well. Denies new acute issues at this time. Eager to go home.
Objective Data
-
Labs:
Laboratory Results
10/06/23
06:00
WBC Pending
Hgb Pending
Hct Pending
Plt Count Pending
Sodium Pending
Potassium Pending
Chloride Pending
Carbon Dioxide Pending
BUN Pending
Creatinine Pending
Glucose Pending
Calcium Pending
Vital Signs:
Vital Signs
Temp Pulse Resp BP Pulse Ox
97.4 F 66 18 133/96 94
10/06/23 03:12 10/06/23 03:12 10/06/23 03:12 10/06/23 03:12 10/06/23 03:12
I&O
10/05/23 10/06/23 10/07/23
06:59 06:59 06:59
Intake Total 1440 / 1440 950 / 950
Balance 1440 / 1440 950 / 950
[2023-10-06 07:52] LABS: Glucose - Point of Care 136 mg/dl (70-99)
[2023-10-06 08:16] LABS: Hematocrit 41.8 % (39.0-52.0); Hemoglobin 14.7 g/dL (13.0-18.0); Mean Corp Hgb Conc. 35.2 g/dL (33.0-37.0); Mean Corpuscular Hgb 30.3 pg (27.0-31.0); Mean Corpuscular Volume 86.2 fL (80.0-94.0); Mean Platelet Volume 10.8 fL (7.4-10.4); Platelet Count 244 10^3/uL (130-400); Red Blood Cell Count 4.85 10^6/uL (4.70-6.10); Red Cell Dist. Width 12.8 % (11.5-14.5); White Blood Cell Count 9.1 10^3/uL (4.8-10.8)
[2023-10-06] MEDS: NOVOLOG FLEXPEN-MODERATE RESISTANCE SC ×3 (08:39→16:43)
--- NOTE | 2023-10-06 08:39 | PN.DE.MGMTRT ---
Insulin Management
- -
10/06/2023: Diabetes Management F/U:
Patient admitted 09/27 with change in mental status, lethargy, slurred speech. PMH: Untreated HTN, untreated T2DM, MITCHEL. Patient has not been to a doctor in 13 years. A1C is 10.9%, Cr 1.0, eGFR >60.
Pt awake, Alert, oriented x3, sitting up in bed, able to discuss diabetes mgt.
at bedside, also participated in discussion re:diabetes mgt
Glucose stable w/o elevations, premeal range 133 to 177, FBG 129 this AM.
Will make no changes to current regimen. Cont Lantus to 24 units @ HS, NovoLog to 12 units AC and Metformin 500 mg BID.
Will follow and make adjustments if needed. Cont same meds at discharge.
Diabetes History
- -
Type of Diabetes: 2 requiring insulin
Pre-Admission Diabetes Regimen
10/05/23
07:16
Creatinine 1.2
Lab Results
Hemoglobin A1c 10.9 % (4.0-5.6) H 09/28/23 13:05
Insulin Pump Settings
IP Diabetes Regimen
10/05/23 10/05/23 10/05/23
07:16 11:14 16:17
Glucose 130 H
POC Glucose 142 H 141 H
10/05/23 10/06/23
21:17 07:51
Glucose
POC Glucose 122 H 136 H
Meal type: Lunch
Meal type: Breakfast
Amount consumed: 100%
Amount consumed: 100%
Patient Education
[2023-10-06] MEDS: DIOVAN 160 MG PO (08:40)
[2023-10-06] MEDS: NORVASC 10 MG PO (08:40)
[2023-10-06] MEDS: ORETIC 25 MG PO (08:40)
[2023-10-06] MEDS: GLUCOPHAGE 500 MG PO ×2 (08:40→16:46)
[2023-10-06] MEDS: ALDACTONE 25 MG PO (08:40)
[2023-10-06] MEDS: LOW STRENGTH ASPIRIN 81 MG PO (08:40)
[2023-10-06] MEDS: TRANDATE 100 MG PO ×2 (08:41→20:06)
[2023-10-06] MEDS: PLAVIX 75 MG PO (08:41)
[2023-10-06] MEDS: VITAMIN B1 100 MG PO ×2 (08:41→20:02)
--- NOTE | 2023-10-06 08:41 | W.PN.CD ---
Today's Communication / Plan
-
Cardilogy will sign off
He should followup with neurology for strokes and antiplatelet regimen
He should see his PCP for HTN management, DM management, mixed hyperlipidemia management
I asked him to monitor his BP daily for the next two months and once well controlled then check 1st and 3rd week of each month in AM and PM and record in a BP log
He should have a BMP in 2 and 4 weeks given new Aldactone and other meds
Cardiology will sign off
Impression / Plan
-
67M with limited medical care presenting with 'new' severe hypertension, diabetes mellitus (HgbA1c 10.9%), and mental status changes.
HTN
- Much improved
- Now off hydralazine
- HTN Regimen now is:
- Amlodipine [Norvasc] 10 mg PO DAILY
- Hydrochlorothiazide [Oretic] 25 mg PO DAILY
- Labetalol [Trandate] 100 mg PO BID
- Spironolactone [Aldactone] 25 mg PO DAILY
- Valsartan [Diovan] 320 mg PO DAILY
- I reviewed therapeutic lifestyle changes for BP control: Achieve BMI < 25, exercise 40 min most days of week (aerobic+resistanc), DASH diet, low salt diet, and other
Strokes
- Will not pursue ANTHONY or prolonged telemetry
- presume hypertensive small vessel etiology
- Risk factor control including DM/HTN/Lipids, continue meds
- Antiplatelets ASA/Plavix per neurology
Type II DM - new diagnosis.
- Hgba1c 10.9%.
- per primary team/diabetes management.
Dyslipidemia - LDL 123, HDL 34, TG 314, TC 219.
- now on atorvastatin 40mg QHS
Suspected MITCHEL - outpatient evaluation
Obesity, BMI 38, he would benefit from weight loss
Subjective:
No CP or dyspnea.
Echo 09/29/2023: Normal EF, moderate LVH, aortic sclerosis, SOV 4.2 cm
Physical Exam
Vital Signs/Labs
Vital Signs
Temp Pulse Resp BP Pulse Ox
97.7 F 68 16 138/93 98
10/06/23 07:00 10/06/23 07:00 10/06/23 07:00 10/06/23 07:00 10/06/23 07:00
10/06/23 07:41
Magnesium 1.5 mg/dl (1.6-2.3) L 10/05/23 07:16
Triglycerides 314 mg/dl (10-149) H 09/29/23 05:16
LDL Cholesterol, Calc 123 mg/dl 09/29/23 05:16
VLDL Cholesterol, Calc 62 mg/dl (0-30) H 09/29/23 05:16
HDL Cholesterol 34 mg/dl 09/29/23 05:16
10/01/23
03:44
[id number] Pept 139
Physical Exam
Constitutional: No acute distress
EENT: Anicteric
Cardiovascular: Rhythm & rate is regular and Pedal edema is absent
Respiratory: Respiratory effort normal and Lungs clear to auscul.
GI: Soft and Distention absent
Neuro/Psych: Alert
Data Reviewed
-
Date of Service: October 06, 2023
[2023-10-06 08:43] LABS: Blood Urea Nitrogen 22 mg/dl (9-20); Calcium 9.9 mg/dl (8.4-10.2); Carbon Dioxide 27 mmol/L (22-30); Chloride 99 mmol/L (98-107); Estimated Creatinine Clearance 75 ml/min; Glucose 129 mg/dl (70-99); Magnesium 1.5 mg/dl (1.6-2.3); Phosphorus 4.8 mg/dl (2.5-4.5); Potassium 3.8 mmol/L (3.5-5.1); Sodium 137 mmol/L (135-145); eGFR > 60.00
[2023-10-06] MEDS: NOVOLOG FLEXPEN 12 UNITS SC ×3 (08:43→16:46)
--- NOTE | 2023-10-06 09:30 | PTCARENOTE ---
Diabetes Education- Follow up education for Erlinda, ,Leeanne present as well. Erlinda has not self injected while at , Leeanne has. Worked with Erlinda on the use of the insulin pen, he is more engaged today although very slow in his processing. Initially
required verbal cues for every step of the process, by the 4 th time practicing, he did not require any very cues and showed signs of problems solving when he was stuck at a certain stage. Discussed with both Leeanne and Erlinda that they will need to
work together, Leeanne eludes that erlinda 'can get mean'. Recommend that she set up the supplies for him and then observe him, only interjecting if he requires help. Remind Erlinda to be nice. Reviewed use of the Contour NExt, Michelle result 171 mg/dl post
breakfast. Updates to DAKOTA Garcia with suggestion to have Erlinda set up insulin pen (take home pen needles in room) and self inject at lunch. They are also requesting a shower as they are anticipating him being discharged today. Encouraged to call if
they have any follow up questions (phone number in take home education booklet).
--- NOTE | 2023-10-06 10:01 | PN.CDI ---
CDI
- -
CDI:
Physician Documentation Request
Admit Date: 09/28/23 17:17
Dear Doctor Chris,
Please review the following and provide your response in the progress notes.
Clinical Indicators:
09/27 Pt admitted with Hypertensive Emergency, Hypertensive Encephalopathy
10/02 RN's Note: 'Dr Do aware that pt's is concerned about his left hand/arm. Both are swollen. She states it was from a previous IV. both are warm and he has a strong radial pulse.'...
10/04 PN: 'Venous duplex appreciated superficial thrombophlebitis Nonocclusive thrombus within the left cephalic vein as described. No evidence of deep venous thrombosis in the left upper extremity as described above.'...
Clarify which of the following accurately represents the acuity of the superficial thrombophlebitis nonocclusive thrombus. Possible options might include:
Acute
Chronic
Other
Unable to determine
Use of terms such as suspected, likely, concern for, or probable (associated with a specific diagnosis that is being evaluated, monitored, or treated as if it exists) are acceptable and can be coded in the inpatient setting, when documented at the
time of discharge.
Thank you,
Leola Alexander RN, BSN
CDI Specialist
Available via [place] [employer]
Please use your independent medical judgment in providing your response.
[2023-10-06 11:00] VITALS: BP 133/84
[2023-10-06 12:02] LABS: Glucose - Point of Care 142 mg/dl (70-99)
--- NOTE | 2023-10-06 12:17 | PTCARENOTE ---
Pt was able to draw up 12 units of Novolog and administer to himself in his abdomen with some reminders. at bedside.
[2023-10-06] MEDS: MAGNESIUM SULFATE 100 IV (13:17)
--- NOTE | 2023-10-06 14:02 | PTOTSP ---
ST Follow-Up
SLUMS was administered and pt achieved a score of 20/30, which is a slight decline in cognitive linguistic function in comparison to the first time he was evaluated with the MOCA on 10/01/23. Pt's deficits were primarily in the areas of short term
memory, working memory, attention, executive functioning, and visuospatial skills.
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 SPIRAL WINDER recommended OP SPIRAL WINDER services to address pt's areas of deficits. SPIRAL WINDER also provided education about refraining from cognitively-demanding tasks at
this time (e.g. driving) and using caution with other tasks (e.g. cooking, mowing lawn, medication management, money management) until these skills can be further assessed as an OP. Pt and pt's were receptive to these recommendations.
[2023-10-06 14:23] VITALS: BP 123/73; PULSE 71
--- NOTE | 2023-10-06 14:35 | CM ---
Patient seen bedside.
Patient for d/c home today with [facility].
Spouse with some concerns and requested to speak with a Patient Advocate.
TC to Patient Advocate who will speak with patient and spouse.
IMM reviewed and added to chart.
Plan:home today with [facility], spouse will transport.
--- NOTE | 2023-10-06 15:14 | W.DCSUMMARY ---
Discharge Summary
Discharge Data
Date of Admission: 09/28/23
Date of Discharge: 10/06/23
-
Pending Results: No
Discharge Plan
-
Patient Disposition: Home with Home Care
Discharge Diagnosis/Procedures: Hypertensive urgency/emergency
Acute�subacute infarcts Stroke
Old infarcts
Subacute encephalopathy due to stroke
Hyperlipidemia
Mild Hypomagnesemia
acute superficial thrombophlebitis Nonocclusive thrombus within the left upper extremity cephalic vein
Uncontrolled diabetes, hemoglobin A1c 10.9
Likely obstructive sleep apnea
Obesity
Condition: Fair
Diet: Diabetic, Carb Controlled
Activity: As tolerated
Driving Restrictions: Not until seen by your Dr
Bathing Restrictions: None
Blood Work: Please repeat BMP and Mag level with primary care provider at 2 weeks and 4 weeks following discharge
Others Tests: Please follow up with primary care provider or pulmonology for outpatient sleep study in 2-3 weeks of discharge
Other Services: VN, PT, OT and ST
Activity Restrictions/Additional Instructions:
Please follow up with primary care provider in 1 week of discharge, pulmonology in 2-3 weeks of discharge, keep your appointment with Cardiology, and follow up with Neurology in 1 month of discharge.
Home Medication
omega 6-ric-ulv-fish oil 1,000 mg (120 mg-180 mg) capsule (Fish Oil) 1 cap PO DAILY Supplement 09/28/23
New medications
amlodipine 10 mg tablet 10 mg PO DAILY for hypertension
aspirin 81 mg chewable tablet (Children's Aspirin) 81 mg PO DAILY for stroke
atorvastatin 40 mg tablet 40 mg PO QPM for hyperlipidemia and stroke risk reduction
clopidogrel 75 mg tablet 75 mg PO DAILY for stroke, continue through 10/20 to complete total 21 days dual antiplatelet therapy, then stop and continue with aspirin only
hydrochlorothiazide 25 mg tablet 25 mg PO DAILY for hypertension
insulin aspart U-100 100 unit/mL (3 mL) subcutaneous pen 12 unit (0.12 mL) SC AC for diabetes
insulin glargine 100 unit/mL (3 mL) subcutaneous pen (Lantus Solostar U-100 Insulin) 24 unit (0.24 mL) SC HS for diabetes
labetalol 100 mg tablet 100 mg PO BID for hypertension
magnesium oxide 500 mg PO DAILY for mild hypomagnesemia
metformin 500 mg tablet 500 mg PO BID@0800,1700 for diabetes
spironolactone 25 mg tablet 25 mg PO DAILY for hypertension
valsartan 320 mg tablet 320 mg PO DAILY for hypertension
Please take medications as prescribed/recommended and follow up with primary care provider and/or other healthcare provider involved in your care for refills and/or further adjustment to your medication regimen as necessary.
Referrals:
Ba Valero MD [Active] - in one month
Sophie Phillips CRNP [Specified Professional Personl] - 10/19/23 10:00 am
Faheem Hernandez MD [Active] - in two to three weeks
Toni Goldberg MD [Family Provider] - in one week (follow up in 1 week)
Prescriptions:
New
(DME) Contour Next Test Strips Strip
Qty: 120 0RF
Rx Instructions:
Pt Testing 4 times a day
(DME) lancets [Microlet Lancet] Misc
Qty: 120 0RF
Rx Instructions:
Pt testing 4 times a day
(DME) pen needle, diabetic [BD Ultra-Fine Pao Pen Needle] 32 gauge x 5/32' Needle
Qty: 200 0RF
Rx Instructions:
Pt taking insulin 4 times a day
spironolactone 25 mg Tablet
25 mg PO DAILY 30 Days Qty: 30 0RF
valsartan 320 mg tablet
320 mg PO DAILY 30 Days Qty: 30 0RF
metformin 500 mg Tablet
500 mg PO BID@0800,1700 30 Days Qty: 60 0RF
insulin glargine [Lantus Solostar U-100 Insulin] 100 unit/mL (3 mL) insulin pen
24 unit SC HS Qty: 15 0RF
atorvastatin 40 mg Tablet
40 mg PO QPM 30 Days Qty: 30 0RF
amlodipine 10 mg Tablet
10 mg PO DAILY 30 Days Qty: 30 0RF
magnesium oxide 500 mg magnesium Tablet
500 mg PO DAILY 30 Days Qty: 30 0RF
aspirin [Children's Aspirin] 81 mg Tablet,Chewable
81 mg PO DAILY 30 Days Qty: 30 0RF
insulin aspart U-100 100 unit/mL (3 mL) Insulin Pen
12 unit SC AC Qty: 15 0RF
clopidogrel 75 mg Tablet
75 mg PO DAILY 15 Days Qty: 15 0RF
Rx Instructions:
continue through 10/21/23 then stop
hydrochlorothiazide 25 mg Tablet
25 mg PO DAILY 30 Days Qty: 30 0RF
labetalol 100 mg Tablet
100 mg PO BID 30 Days Qty: 60 0RF
Continued
omega 2-zth-etw-fish oil [Fish Oil] 1,000 mg (120 mg-180 mg) Capsule
1 cap PO DAILY
Discharge Orders:
Discharge Patient (As Directed); Ordered 10/06/23
Ordered By: Kenzie Perez
Discharge Date and Time
Print Language: THAI
--- NOTE | 2023-10-06 15:33 | W.PN.UPDATE ---
Update Note
Progress Note Update
Discharge on hold pending availability milk pickup driver prescribed insulin from pharmacy anticipated by tomorrow.
[2023-10-06 15:44] VITALS: BP 140/84
--- NOTE | 2023-10-06 16:31 | VNURNOTE ---
Home Health Liaison met with patient and Eleanor at 1600 to discuss [facility] nurse/therapy, visits, schedule and homebound status. Patient is agreeable and understands that visits at home will be 2-3 x per week to assess and teach medical
management. Eleanor was asking about OP therapy specifically ST. Eleanor is aware that patient is not able to have both in home and OP but could start w/[facility] and then progress to OP.
[facility] brochure provided with contact information. Patient is aware that [facility] will contact them for start of care in 1-2 days after discharge from .
[facility] referral completed in [facility].
[2023-10-06 16:41] LABS: Glucose - Point of Care 125 mg/dl (70-99)
[2023-10-06] MEDS: LIPITOR 40 MG PO (16:46)
[2023-10-06] MEDS: LOVENOX 40 MG SC (16:47)
[2023-10-06 21:22] LABS: Glucose - Point of Care 157 mg/dl (70-99)
[2023-10-06] MEDS: LANTUS 0.239999999999999991 UNITS SC (21:30)
[2023-10-06 23:02] VITALS: BP 138/74
[2023-10-07 07:30] VITALS: BP 137/81
--- NOTE | 2023-10-07 07:53 | W.PN.HOSP.TC ---
Addendum entered and electronically signed by Kenzie Perez MD 10/09/23 03:30:
Alcohol withdrawal suspected unconfirmed
Addendum entered and electronically signed by Kenzie Perez MD 10/09/23 03:28:
Resistant Hypertension
Original Note:
Today's Communication/Plan
-
discharge
Assessment / Plan
Assessment / Plan
HPI: 67 male history hypertension obesity lost to follow-up has not seen a doctor in 13 years brought in by family due to concerns altered mental status lethargy falling asleep in the middle of the day slurring speech progressive for the last month
acutely worsening over the last week. Denies headache lightheadedness fevers chills nausea vomiting diarrhea constipation chest abdomen pain palpitations. Reports polyuria polyphagia polydipsia. also reports severe snoring at night patient
occasionally stops breathing while sleeping. Never formally diagnosed with sleep apnea but strongly suspected. ED eval was significant for hypertensive urgency/emergency initial blood pressure 242/162. Labetalol was attempted twice without
effect. Patient was placed on Cardene gtt. with subsequent improvement. Rest of vital signs stable afebrile on room air. EKG sinus rhythm with first-degree block nonspecific ST-T abnormalities. CT head noted no acute abnormalities signs of
chronic microvascular ischemic disease possible chronic infarct/ex vacuo dilatation right parietal lobe. NIH scale 0 no significant signs of stroke at this time.
#Hypertensive urgency emergency
Appreciate cardiology and space physicist input
Status post Cardene drip, continue amlodipine to 10 mg daily, hydrochlorothiazide 25 mg daily
Started on hydralazine 100 mg 3 times daily later discontinued as per cardio, Aldactone 25 mg daily 10/01
Cardiology increased valsartan to 160 mg twice a day (simplified to 320 mg daily on discharge), started labetalol 100 mg twice a day 10/03
10/05 cleared for discharge as per cardio
#Acute�subacute infarct
#Old infarcts
Appreciate neurology input, continue aspirin 81 mg that was started in the hospital
Neurology also recommends Plavix 75 mg daily for 21 days through 10/21/2023
Started atorvastatin 40 mg at bedtime, PT/OT, control blood pressure
Treat new onset diabetes as below
PT rec outpt PT appreciated, case mgmt consult appreciated home services being arranged initially on discharge, eventual outpt PT/OT/ST follow up.
#Subacute encephalopathy
Likely due to stroke
B12/TSH normal
Continue to monitor
#Hyperlipidemia
Started atorvastatin 40 mg at bedtime, continue
#Hypokalemia
#Hypomagnesemia
Monitor and replete as necessary
mild hypomagnesemia persistent, will start daily oral supplementation, outpatient follow up recommended
#Left upper extremity edema
From infiltrated IV
Venous duplex appreciated acute superficial thrombophlebitis Nonocclusive thrombus within the left cephalic vein. No evidence of deep venous thrombosis in the left upper extremity.
Since improved with conservative mgmt
#New onset type 2 diabetes, hemoglobin A1c 10.9
Diabetes nurse practitioner following, continue insulin adjustments as per diabetes DRY CLEANER, Lantus 24 U HS Novolog 12 U AC and Metformin 500 mg BID
#Likely obstructive sleep apnea
Outpatient sleep study recommended
#Leukocytosis
Afebrile, no signs or symptoms of infection
UA/1 view chest x-ray negative
Monitor off antibiotics
leukocytosis resolved
#Obesity due to excess calories
Affects all aspects of care
DVT prophylaxis Lovenox
Full code
Medically stable for discharge Home with home services and outpatient follow up recommendations.
Discussed with patient and his Leeanne at bedside.
Total Time Preparing Discharge __50 minutes including examination of the patient, summary of the hospital stay, instructions for continuing care to all relevant caregivers; and preparation of discharge records, prescriptions, and referral
forms if necessary.
Physical Exam
General: Obese, no acute distress
HEENT: Normocephalic, Atraumatic, EOMI, MMM
Respiratory: Clear to Auscultation bilaterally
Cardiac: Normal S1/S2, Regular Rate and Rhythm
GI: Soft, Nontender, Nondistended, Normal Bowel Sounds
Extremities: No Clubbing, Cyanosis, or Edema
Neuro: Slow mentation but AOx3
Psych: Calm, Cooperative
Derm: No Visible lesions
Anticipated Discharge: Today
Subjective/Interval History
-
Date of Service: October 07, 2023
no acute distress. comfortable. at bedside confirms home medication including insulin ready for pick from pharmacy.
Objective Data
-
Vital Signs:
Vital Signs
Temp Pulse Resp BP Pulse Ox
97.8 F 86 18 138/74 95
10/06/23 23:02 10/06/23 23:02 10/06/23 23:02 10/06/23 23:02 10/06/23 23:02
I&O
10/06/23 10/07/23 10/08/23
06:59 06:59 06:59
Intake Total 950 / 950 1240 / 1240
Balance 950 / 950 1240 / 1240
[2023-10-07 07:55] LABS: Glucose - Point of Care 133 mg/dl (70-99)
[2023-10-07] MEDS: NOVOLOG FLEXPEN-MODERATE RESISTANCE SC ×2 (07:56→12:11)
[2023-10-07] MEDS: NOVOLOG FLEXPEN 12 UNITS SC ×2 (07:57→12:07)
[2023-10-07] MEDS: TRANDATE 100 MG PO (07:58)
[2023-10-07] MEDS: MAGNESIUM OXIDE 500 MG PO (07:58)
[2023-10-07] MEDS: GLUCOPHAGE 500 MG PO (07:59)
[2023-10-07] MEDS: VITAMIN B1 100 MG PO (07:59)
[2023-10-07] MEDS: DIOVAN 320 MG PO (07:59)
[2023-10-07] MEDS: ORETIC 25 MG PO (08:00)
[2023-10-07] MEDS: NORVASC 10 MG PO (08:00)
[2023-10-07] MEDS: LOW STRENGTH ASPIRIN 81 MG PO (08:00)
[2023-10-07] MEDS: ALDACTONE 25 MG PO (08:00)
[2023-10-07] MEDS: PLAVIX 75 MG PO (08:00)
--- NOTE | 2023-10-07 09:08 | PN.DE.MGMTRT ---
Insulin Management
- -
10/07/2023: Diabetes Management F/U:
Patient admitted 09/27 with change in mental status, lethargy, slurred speech. PMH: Untreated HTN, untreated T2DM, MITCHEL. Patient has not been to a doctor in 13 years. A1C is 10.9%, Cr 1.0, eGFR >60.
Pt awake, Alert, oriented x3, sitting up in bed, able to discuss diabetes mgt.
at bedside, also participated in discussion re:diabetes mgt. States she was able to flower buncher or picker all the diabetes meds and supplies from the pharmacy.
Glucose stable w/o elevations, premeal range 125 to 142, FBG 133 this AM.
Will make no changes to current regimen. Cont Lantus to 24 units @ HS, NovoLog to 12 units AC and Metformin 500 mg BID.
Will follow and make adjustments if needed. Cont same meds at discharge. Encouraged to obtain care with Director Gift.
Diabetes History
- -
Type of Diabetes: 2 requiring insulin
Pre-Admission Diabetes Regimen
Lab Results
Hemoglobin A1c 10.9 % (4.0-5.6) H 09/28/23 13:05
Insulin Pump Settings
IP Diabetes Regimen
10/06/23 10/06/23 10/06/23
12:01 16:40 21:20
POC Glucose 142 H 125 H 157 H
10/07/23
07:54
POC Glucose 133 H
Patient Education
--- NOTE | 2023-10-07 10:14 | PN.CDI ---
CDI
- -
CDI:
Physician Documentation Request
Admit Date: 09/28/23 17:17
Dear Doctor Chris,
Please review the following and provide your response in the progress notes.
Clinical Indicators:
09/27 Pt admitted with Hypertensive emergency, encephalopathy, stroke
09/28 MSAS 8 with 1mg IV ativan
09/29 Nurses note: 'pt reassessed. attempting to climb OOB, restless, difficult to redirect. PRN ativan given with no effect. ICU CLINICAL EDUCATION ASSISTANT aware, precedex gtt ordered and initiated per protocol.'
09/29 Neurology note: 'Overnight he was agitated towards staff with behavior concerning of alcohol withdrawal, patient reports he drinks 2-3 beers per day.'
09/29 PN: ' angry/upset, yelling at staff about her 's drinking history. She is adamant he does not drink at all, maybe 1-2 drinks on the weekends and that if he did have drinks she would know. She feels he cannot possibly be drinking
without her knowledge and is upset that she must repeatedly say this to everyone. She is upset that he is 'labeled as an alcoholic.' She thinks he is too confused to be truthful about his history. He had told me yesterday that he smokes 1/2 PPD
and drinks 2-3 drinks almost every day, usually beers and states his has 2-3 glasses of wine as well. She does not believe this to be true. When asked her about stopping treatment in relationship to potential ETOH w/d and risk of
seizure/coma/ his now states if that she wants treatment. We will will proceed with treatment/taper in the event his history is true.'
Please clarify the following:
Alcohol withdrawal was present on admission and is now resolved.
Alcohol withdrawal was present on admission and is still being monitored, evaluated or treated
Alcohol withdrawal was ruled out
Alcohol withdrawal is still a likely, suspected, probable diagnosis
Other
Use of terms such as suspected, likely, concern for, or probable (associated with a specific diagnosis that is being evaluated, monitored, or treated as if it exists) are acceptable and can be coded in the inpatient setting, when documented at the
time of discharge.
Thank you,
Leola Alexander RN, BSN
CDI Specialist
Available via [place] [employer]
Please use your independent medical judgment in providing your response.
--- NOTE | 2023-10-07 10:52 | PN.CDI ---
CDI
- -
CDI:
Physician Documentation Request
Admit Date: 09/28/23 17:17
Dear Doctor Chris,
Please review the following and provide your response in the progress notes.
Clinical Indicators:
09/27 Pt admitted with Hypertensive emergency, encephalopathy, stroke
Started on Nicardipine gtt
09/30 Cardiology note: 'The patient has had uncontrolled hypertension for years, so it may take some time for his blood pressure to improve to adequate levels.'
10/04 Cardiology Note: ' BP improving but not near goal
- continue HCTZ, Hydralazine, Aldactone, and => increase Valsartan and add labetolol, stopped hydral, BP controlled
- he presented with change in mental status'
10/05 Cardiology Note: ' HTN Regimen now is:
- Amlodipine [Norvasc] 10 mg PO DAILY
- Hydrochlorothiazide [Oretic] 25 mg PO DAILY
- Labetalol [Trandate] 100 mg PO BID
- Spironolactone [Aldactone] 25 mg PO DAILY
- Valsartan [Diovan] 320 mg PO DAILY
Clarify which, if any of the following, is the most accurate diagnosis reflecting the type and acuity of the documented hypertension:
Essential primary hypertension
Resistant hypertension
Other
Use of terms such as suspected, likely, concern for, or probable (associated with a specific diagnosis that is being evaluated, monitored, or treated as if it exists) are acceptable and can be coded in the inpatient setting, when documented at the
time of discharge.
Thank you,
Leola Alexander RN, BSN
CDI Specialist
Available via [place] [employer]
Please use your independent medical judgment in providing your response.
* Source: [facility]
[2023-10-07 11:35] LABS: Glucose - Point of Care 127 mg/dl (70-99)
--- NOTE | 2023-10-07 11:57 | W.DCSUMMARY ---
Discharge Summary
Discharge Data
Date of Admission: 09/28/23
Date of Discharge: 10/07/23
-
Pending Results: No
Hospital Course
67 male history hypertension obesity lost to follow-up has not seen a doctor in 13 years brought in by family due to concerns altered mental status lethargy falling asleep in the middle of the day slurring speech progressive for the last month
acutely worsening over the last week. Denies headache lightheadedness fevers chills nausea vomiting diarrhea constipation chest abdomen pain palpitations. Reports polyuria polyphagia polydipsia. also reports severe snoring at night patient
occasionally stops breathing while sleeping. Never formally diagnosed with sleep apnea but strongly suspected. ED eval was significant for hypertensive urgency/emergency initial blood pressure 242/162. Labetalol was attempted twice without
effect. Patient was placed on Cardene gtt. with subsequent improvement. Rest of vital signs stable afebrile on room air. EKG sinus rhythm with first-degree block nonspecific ST-T abnormalities. CT head noted no acute abnormalities signs of
chronic microvascular ischemic disease possible chronic infarct/ex vacuo dilatation right parietal lobe. NIH scale 0 no significant signs of stroke on initial presentation. Admitted to ICU, parimutuel ticket checker and cardiology evaluated, patient was
eventually transitioned from Cardene drip to amlodipine to 10 mg daily and hydrochlorothiazide 25 mg daily. Hydralazine 100 mg 3 times daily was stated but later discontinued as per cardio, in favor of other antihypertensive medications. Aldactone
25 mg daily was added. Cardiology added and gradually increased valsartan to 160 mg twice a day (simplified to 320 mg daily on discharge). Labetalol 100 mg twice a day was also added. Hospital course complicated with encephalopathy confusion,
patient was found to have Acute�subacute infarcts as well as Old infarcts on MRI. Neurology evaluated and recommended DAPT w/ ASA/Plavix for 21 days through 10/21/2023. Hyperlipidemia, patient was started on atorvastatin 40 mg at bedtime. PT/OT
evaluated and home services was arranged on discharge. Patient developed Left upper extremity edema from infiltrated IV. Venous duplex appreciated acute superficial thrombophlebitis Nonocclusive thrombus within the left cephalic vein. No evidence
of deep venous thrombosis in the left upper extremity. Patient since improved with conservative mgmt. New onset type 2 diabetes, hemoglobin A1c 10.9, education was provided. Diabetes nurse practitioner evaluated, adjusted insulin regimen and
recommended Lantus 24 U HS Novolog 12 U AC and Metformin 500 mg BID on discharge. For likely obstructive sleep apnea, outpatient sleep study was recommended. Medically stable patient was discharged home with home services and outpatient follow up
recommendations.
Discharge Plan
-
Patient Disposition: Home with Home Care
Discharge Diagnosis/Procedures: Hypertensive urgency/emergency
Acute�subacute infarcts Stroke
Old infarcts
Subacute encephalopathy due to stroke
Hyperlipidemia
Mild Hypomagnesemia
acute superficial thrombophlebitis Nonocclusive thrombus within the left upper extremity cephalic vein
Uncontrolled diabetes, hemoglobin A1c 10.9
Likely obstructive sleep apnea
Obesity
Condition: Fair
Diet: Diabetic, Carb Controlled
Activity: As tolerated
Driving Restrictions: Not until seen by your Dr
Bathing Restrictions: None
Blood Work: Please repeat BMP and Mag level with primary care provider at 2 weeks and 4 weeks following discharge
Others Tests: Please follow up with primary care provider or pulmonology for outpatient sleep study in 2-3 weeks of discharge
Other Services: VN, PT, OT and ST
Activity Restrictions/Additional Instructions:
Please follow up with primary care provider in 1 week of discharge, pulmonology in 2-3 weeks of discharge, keep your appointment with Cardiology, and follow up with Neurology in 1 month of discharge.
Home Medication
omega 3-wvd-xsw-fish oil 1,000 mg (120 mg-180 mg) capsule (Fish Oil) 1 cap PO DAILY Supplement 09/28/23
New medications
amlodipine 10 mg tablet 10 mg PO DAILY for hypertension
aspirin 81 mg chewable tablet (Children's Aspirin) 81 mg PO DAILY for stroke
atorvastatin 40 mg tablet 40 mg PO QPM for hyperlipidemia and stroke risk reduction
clopidogrel 75 mg tablet 75 mg PO DAILY for stroke, continue through 10/20 to complete total 21 days dual antiplatelet therapy, then stop and continue with aspirin only
hydrochlorothiazide 25 mg tablet 25 mg PO DAILY for hypertension
insulin aspart U-100 100 unit/mL (3 mL) subcutaneous pen 12 unit (0.12 mL) SC AC for diabetes
insulin glargine 100 unit/mL (3 mL) subcutaneous pen (Lantus Solostar U-100 Insulin) 24 unit (0.24 mL) SC HS for diabetes
labetalol 100 mg tablet 100 mg PO BID for hypertension
magnesium oxide 500 mg PO DAILY for mild hypomagnesemia
metformin 500 mg tablet 500 mg PO BID@0800,1700 for diabetes
spironolactone 25 mg tablet 25 mg PO DAILY for hypertension
valsartan 320 mg tablet 320 mg PO DAILY for hypertension
Please take medications as prescribed/recommended and follow up with primary care provider and/or other healthcare provider involved in your care for refills and/or further adjustment to your medication regimen as necessary.
Referrals:
Ba Valero MD [Active] - in one month
Sophie Phillips CRNP [Specified Professional Personl] - 10/19/23 10:00 am
Faheem Hernandez MD [Active] - in two to three weeks
Toni Goldberg MD [Family Provider] - in one week (follow up in 1 week)
Prescriptions:
New
(DME) Contour Next Test Strips Strip
Qty: 120 0RF
Rx Instructions:
Pt Testing 4 times a day
(DME) lancets [Microlet Lancet] Misc
Qty: 120 0RF
Rx Instructions:
Pt testing 4 times a day
(DME) pen needle, diabetic [BD Ultra-Fine Pao Pen Needle] 32 gauge x 5/32' Needle
Qty: 200 0RF
Rx Instructions:
Pt taking insulin 4 times a day
spironolactone 25 mg Tablet
25 mg PO DAILY 30 Days Qty: 30 0RF
valsartan 320 mg tablet
320 mg PO DAILY 30 Days Qty: 30 0RF
metformin 500 mg Tablet
500 mg PO BID@0800,1700 30 Days Qty: 60 0RF
insulin glargine [Lantus Solostar U-100 Insulin] 100 unit/mL (3 mL) insulin pen
24 unit SC HS Qty: 15 0RF
atorvastatin 40 mg Tablet
40 mg PO QPM 30 Days Qty: 30 0RF
amlodipine 10 mg Tablet
10 mg PO DAILY 30 Days Qty: 30 0RF
magnesium oxide 500 mg magnesium Tablet
500 mg PO DAILY 30 Days Qty: 30 0RF
aspirin [Children's Aspirin] 81 mg Tablet,Chewable
81 mg PO DAILY 30 Days Qty: 30 0RF
insulin aspart U-100 100 unit/mL (3 mL) Insulin Pen
12 unit SC AC Qty: 15 0RF
clopidogrel 75 mg Tablet
75 mg PO DAILY 15 Days Qty: 15 0RF
Rx Instructions:
continue through 10/21/23 then stop
hydrochlorothiazide 25 mg Tablet
25 mg PO DAILY 30 Days Qty: 30 0RF
labetalol 100 mg Tablet
100 mg PO BID 30 Days Qty: 60 0RF
Continued
omega 4-qbs-hnr-fish oil [Fish Oil] 1,000 mg (120 mg-180 mg) Capsule
1 cap PO DAILY
Discharge Orders:
Discharge Patient (As Directed); Ordered 10/07/23
Ordered By: Kenzie Preez
Discharge Date and Time
Discharge Date/Time: 10/07/23 12:57
Print Language: [place]
--- NOTE | 2023-10-07 12:17 | CM ---
Patient seen bedside.
Patient for d/c home today, per spouse all mediations have been picked up.
Spouse will transport.
Plan: home with VN
[2023-10-07 12:43] VITALS: BP 127/72
== END 2023-10-07 12:57 | disposition home health service (06) | DRG 64 ==
LOC: 4 WEST ACU 17:17
PROVIDERS: Family Medicine; Nurse Practitioner Gerontology; ADMITTING PHYSICIAN Internal Medicine; CONSULT PHYSICIAN Internal Medicine; CONSULT PHYSICIAN Psychiatry & Neurology Neurology; EMERGENCY PHYSICIAN Emergency Medicine; FAMILY PHYSICIAN Internal Medicine; OTHER PHYSICIAN Internal Medicine Cardiovascular Disease
PROC: 5A09357 Assistance with Respiratory Ventilation, Less than 24 Consecutive Hours, Continuous Positive Airway Pressure (ICD-10-PCS; 2023-10-01)
DX: I63.9 Cerebral infarction, unspecified (principal); I61.0 Nontraumatic intracerebral hemorrhage in hemisphere, subcortical; I16.1 Hypertensive emergency; G93.49 Other encephalopathy; I82.612 Acute embolism and thrombosis of superficial veins of left upper extremity; F10.139 Alcohol abuse with withdrawal, unspecified; R47.81 Slurred speech; R26.2 Difficulty in walking, not elsewhere classified; R53.83 Other fatigue; G47.33 Obstructive sleep apnea (adult) (pediatric); R26.89 Other abnormalities of gait and mobility; E88.810 Metabolic syndrome; E11.65 Type 2 diabetes mellitus with hyperglycemia; E66.09 Other obesity due to excess calories; E78.5 Hyperlipidemia, unspecified; J44.9 Chronic obstructive pulmonary disease, unspecified; E87.6 Hypokalemia; K21.9 Gastro-esophageal reflux disease without esophagitis; F17.210 Nicotine dependence, cigarettes, uncomplicated; I35.8 Other nonrheumatic aortic valve disorders; E78.2 Mixed hyperlipidemia; I1A.0 Resistant hypertension; I80.8 Phlebitis and thrombophlebitis of other sites; I77.810 Thoracic aortic ectasia; D72.829 Elevated white blood cell count, unspecified; E83.42 Hypomagnesemia; I10 Essential (primary) hypertension; R63.2 Polyphagia; Z91.199 Patient's noncompliance with other medical treatment and regimen due to unspecified reason; Z82.49 Family history of ischemic heart disease and other diseases of the circulatory system; Z83.3 Family history of diabetes mellitus; Z82.3 Family history of stroke; Z68.38 Body mass index [BMI] 38.0-38.9, adult; Z86.73 Personal history of transient ischemic attack (TIA), and cerebral infarction without residual deficits
CPT/HCPCS: 70450; 70551; 71045; 80048; 80053; 80061; 81003; 82088; 82607; 82805; 82962; 83036; 83690; 83735; 83880; 84100; 84244; 84443; 84484; 85025; 85027; 87040; 92507; 92523; 93005; 93306; 93880; 93971; 94660; 94762; 96374; 96375; 97116; 97129; 97162; 97166; 97530; 99291

== ENCOUNTER 2023-10-08 10:37 | Emergency (ER) | payer MEDICARE, OTHER, SELFPAY ==
[2023-10-08 10:40] VITALS: BP 132/87
[2023-10-08 10:52] LABS: Glucose - Point of Care 101 mg/dl (70-99)
[2023-10-08 11:27] LABS: % Basophils 1.4 % (0-2); % Eosinophils 3.4 % (0-6); % Immature Granulocytes 0.4 % (0-0.5); % Lymphocytes 17.7 % (20.5-51.1); % Monocytes 8.7 % (1.7-9.3); % Neutrophils 68.4 % (42.2-75.2); Absolute Basophils 0.2 10^3/uL (0-0.2); Absolute Eosinophils 0.5 10^3/uL (0-0.7); Absolute Immature Granulocytes 0.1 10^3/uL (0-0.05); Absolute Lymphocytes 2.5 10^3/uL (1.2-3.4); Absolute Monocytes 1.2 10^3/uL (0.1-0.6); Absolute Neutrophils 9.5 10^3/uL (1.4-6.5); Hematocrit 44.3 % (39.0-52.0); Hemoglobin 15.3 g/dL (13.0-18.0); Mean Corp Hgb Conc. 34.5 g/dL (33.0-37.0); Mean Corpuscular Hgb 30.8 pg (27.0-31.0); Mean Corpuscular Volume 89.1 fL (80.0-94.0); Mean Platelet Volume 10.8 fL (7.4-10.4); Nucleated Red Blood Cells % 0 % (-); Platelet Count 319 10^3/uL (130-400); Red Blood Cell Count 4.97 10^6/uL (4.70-6.10); Red Cell Dist. Width 12.7 % (11.5-14.5); White Blood Cell Count 13.8 10^3/uL (4.8-10.8)
--- NOTE | 2023-10-08 11:40 | ED.CVA ---
History of Present Illness
General
Chief Complaint: CVA/TIA Symptoms
Source: patient and family
Exam Limitations: none
Time Seen by Provider: 10/08/23 11:08
Onset of Stroke Symptoms
Onset of symptoms known: Yes
Date of onset of symptoms: 10/08/23
Travel History
Have you had any contact with someone who has COVID-19?: No
Do you have any symptoms of coronavirus? Fever > 100 degrees, chills, cough, shortness of breath, sore throat, loss of taste or smell, muscle aches, or headache?: No
History of Present Illness
History of Present Illness:
See MDM
Past History
Past History
ED Past Medical History: HTN and NIDDM
Social History
Tobacco: Non-smoker
Alcohol: None
Phy Exam
Physical Exam
Physical Exam:
See MDM
Course
Orders/Labs/Results
Orders:
Orders
10/08/23 11:19
Complete Blood Count/With Diff Urgent
Comprehensive Metabolic Panel Urgent
Magnesium Urgent
Comment: ADD ON
10/08/23 11:29
Add On- LAB Urgent
Tests Added?: magnesium
10/08/23 12:23
0.9% Sodium Chloride 500 ml [Nss] 500 ml IV BOLUS
10/08/23 13:20
Insulin Aspart [NOVOLOG vial] 2 units SC NOW STA
Abnormal Lab Results
10/08/23 10/08/23 10/08/23
10:46 11:19 13:00
WBC 13.8 H 10^3/uL
(4.8-10.8)
MPV 10.8 H fL
(7.4-10.4)
Abs Immat Gran (auto) 0.1 H 10^3/uL
(0-0.05)
Absolute Neuts (auto) 9.5 H 10^3/uL
(1.4-6.5)
Absolute Monos (auto) 1.2 H 10^3/uL
(0.1-0.6)
Lymphocytes % 17.7 L %
(20.5-51.1)
Chloride 97 L mmol/L
(98-107)
BUN 30 H mg/dl
(9-20)
Creatinine 1.5 H mg/dL
(0.7-1.3)
Glucose 113 H mg/dl
(70-99)
Calcium 10.3 H mg/dl
(8.4-10.2)
ALT 62 H U/L
(0-50)
POC Glucose 101 H mg/dl 153 H mg/dl
(70-99) (70-99)
10/08/23 11:19
10/08/23 11:19
Vital Signs
Initial and Last Documented VS:
Initial Vital Signs
Temp Pulse Resp BP Pulse Ox
98.2 F 62 16 132/87 98
10/08/23 10:40 10/08/23 10:40 10/08/23 10:40 10/08/23 10:40 10/08/23 10:40
Last Documented Vital Signs
Temp Pulse Resp BP Pulse Ox
98.2 F 65 21 146/91 96
10/08/23 10:40 10/08/23 13:30 10/08/23 13:30 10/08/23 13:00 10/08/23 13:30
MDM/Problems Addressed
Differential Diagnosis Includes:
HPI and MDM Narrative:
67-year-old male presenting with resolved aphasia. This occurred soon after getting insulin and eating. Symptoms only lasted for a few minutes. Blood sugar was found to be 79 by EMS. On arrival, all symptoms resolved and blood sugar improving.
Patient was recently discharged in the hospital when he was worked up for strokes. That time, patient was found to be uncontrolled hypertensive and new onset diabetes. He was placed on insulin. at bedside is concerned that she is giving too
much insulin
We do long discussion about his recent stroke workup and low utility in readmitting given that all of the appropriate testing was already performed. He is on aspirin, Plavix and atorvastatin. We went over her insulin regimen. He is currently
supposed to take 24 units of Lantus at nighttime and 12 units of aspart before meals. We discussed decreasing to 14 units of Lantus at night and 9 units before meals
Physical exam
General: Well appearing and non-toxic
HEENT: protecting airway
Neck: appears supple
CV: No evidence of cyanosis
Resp: No accessory muscle use
Abd: Non-distended
Extremities: No deformities
Neuro: alert. No aphasia. No focal deficit
Psych: Normal affect
Skin: Intact
Problems Addressed including Acute and Chronic Conditions affecting care:
1. Hypoglycemia
Acuity: acute
Prognosis: stable
Details: Patient is likely overmedicated on insulin. Patient is now eating a low-carb diet. The both combined have resulted in low blood sugar
Updates
Patient was given food and his blood pressure despite 150s. Will give low-dose of insulin.
Differential Diagnosis (but not limited to): TIA, hypoglycemia
Testing considered: CT head but symptoms have resolved
Drug therapy (if applicable): OTC meds, please see d/c instruction regarding Rx drugs
Amount and/or Complexity of Data Reviewed
Clinical info obtained from: Patient
External data reviewed: Recent admission where he had MRI showing subacute and acute infarcts. Carotid ultrasounds were negative
Labs I independently reviewed (but not limited to): Mild hyperglycemia
Radiology: N/A
Pulse Ox: not hypoxic
EKG independently reviewed: N/A
Dietary Server: N/A
Critical Care: N/A
Risk of Complication:
Social Determinants of health: Good social support
Discussed with other providers: Neurology curb wen who agrees that no further imaging or workup required from a stroke standpoint
Escalation of Care includes Admit/Obs: After being observed in the Emergency Department, pt stable for discharge.
Occasional wrong word or 'sound a like' substitutions may have occurred due to the inherent limitations of voice recognition software. Read the chart carefully and recognize, using context, where substitutions have occurred.
*Critical Care Note
Total Time (30-74mins, 75-104mins- exclusive of procedures): Not Applicable
ED Attending Note
-
Portions of this chart may have been created with voice recognition software.� Occasional wrong word or��sound alike� substitutions may have occurred due to the inherent limitations of voice recognition software.
Discharge Plan
Departure
Patient Disposition: Home (Routine Discharge)
Date of Disposition: 10/08/23
Time of Disposition: 14:05
Patient with high blood pressure during this ER visit?: Yes
Discharge Problem:
Hypoglycemia
Instructions: Low Blood Sugar, Adult ED
Prescriptions:
No Action
omega 9-apz-eka-fish oil [Fish Oil] 1,000 mg (120 mg-180 mg) Capsule
1 cap PO DAILY
(DME) Contour Next Test Strips Strip
Qty: 120 0RF
Rx Instructions:
Pt Testing 4 times a day
(DME) lancets [Microlet Lancet] Misc
Qty: 120 0RF
Rx Instructions:
Pt testing 4 times a day
(DME) pen needle, diabetic [BD Ultra-Fine Pao Pen Needle] 32 gauge x 5/32' Needle
Qty: 200 0RF
Rx Instructions:
Pt taking insulin 4 times a day
spironolactone 25 mg Tablet
25 mg PO DAILY 30 Days Qty: 30 0RF
valsartan 320 mg tablet
320 mg PO DAILY 30 Days Qty: 30 0RF
metformin 500 mg Tablet
500 mg PO BID@0800,1700 30 Days Qty: 60 0RF
insulin glargine [Lantus Solostar U-100 Insulin] 100 unit/mL (3 mL) insulin pen
24 unit SC HS Qty: 15 0RF
atorvastatin 40 mg Tablet
40 mg PO QPM 30 Days Qty: 30 0RF
amlodipine 10 mg Tablet
10 mg PO DAILY 30 Days Qty: 30 0RF
magnesium oxide 500 mg magnesium Tablet
500 mg PO DAILY 30 Days Qty: 30 0RF
aspirin [Children's Aspirin] 81 mg Tablet,Chewable
81 mg PO DAILY 30 Days Qty: 30 0RF
insulin aspart U-100 100 unit/mL (3 mL) Insulin Pen
12 unit SC AC Qty: 15 0RF
clopidogrel 75 mg Tablet
75 mg PO DAILY 15 Days Qty: 15 0RF
Rx Instructions:
continue through 10/21/23 then stop
hydrochlorothiazide 25 mg Tablet
25 mg PO DAILY 30 Days Qty: 30 0RF
labetalol 100 mg Tablet
100 mg PO BID 30 Days Qty: 60 0RF
Referrals:
Toni Goldberg MD [Family Provider] -
Activity Restrictions/Additional Instructions:
Please return for any worsening symptoms.
You may return at any time if you have further concerns.
Please follow up with your doctor at the first available appointment, preferably this week.
As we discussed, you may be more sensitive to insulin than initially thought. You can decrease your Lantus to 14 units. You can decrease your aspart to 9 units.
Thank you for choosing [facility].
Interventions
Interventions:
*Risk Screen - Suicide Last Done: 10/08/23 10:40
*General Assessment Last Done: 10/08/23 10:40
*Neglect/Abuse Screening Last Done: 10/08/23 10:40
ED- Fall Risk Assessment Last Done: 10/08/23 11:27
*ED COVID-19 Vaccine History Last Done: 10/08/23 11:27
ED- Pulmonary Assessment Last Done: 10/08/23 11:26
ED- Neurological Assessment Last Done: 10/08/23 11:26
ED- Cardiac Assessment Last Done: 10/08/23 11:26
Discharge Date and Time
Print Language: IRISH
[2023-10-08 11:43] LABS: ALT (SGPT) 62 U/L (0-50); AST (SGOT) 49 U/L (17-59); Albumin 4.2 g/dl (3.5-5.0); Alkaline Phosphatase 108 U/L (38-126); Blood Urea Nitrogen 30 mg/dl (9-20); Calcium 10.3 mg/dl (8.4-10.2); Carbon Dioxide 28 mmol/L (22-30); Chloride 97 mmol/L (98-107); Glucose 113 mg/dl (70-99); Potassium 4.4 mmol/L (3.5-5.1); Sodium 137 mmol/L (135-145); Total Bilirubin 0.7 mg/dl (0.2-1.3); Total Protein 7.8 g/dl (6.3-8.2); eGFR 51.35
[2023-10-08 12:00] VITALS: BP 147/96
[2023-10-08] MEDS: NSS 500 IV (12:37)
[2023-10-08 12:59] LABS: Magnesium 1.7 mg/dl (1.6-2.3)
[2023-10-08 13:00] VITALS: BP 146/91
[2023-10-08 13:01] LABS: Glucose - Point of Care 153 mg/dl (70-99)
[2023-10-08] MEDS: NOVOLOG vial 2 UNITS SC (13:24)
[2023-10-08 13:56] VITALS: BP 150/87
== END 2023-10-08 14:17 | disposition home or self-care (01) ==
LOC: EMR 10:37
PROVIDERS: EMERGENCY PHYSICIAN Student in an Organized Health Care Education/Training Program; FAMILY PHYSICIAN Internal Medicine
DX: E11.649 Type 2 diabetes mellitus with hypoglycemia without coma (principal); I10 Essential (primary) hypertension
CPT/HCPCS: 99282; 80053; 82962; 83735; 85025

== ENCOUNTER 2023-10-12 16:07 | Observation (INO) | payer MEDICARE, OTHER, SELFPAY ==
[2023-10-12] VITALS (10 sets, daily range): BP systolic 115–147; BP diastolic 79–100; BMI 36.1
[2023-10-12 12:16] LABS: Glucose - Point of Care 132 mg/dl (70-99)
[2023-10-12 12:36] LABS: % Basophils 1.5 % (0-2); % Eosinophils 4.1 % (0-6); % Immature Granulocytes 0.3 % (0-0.5); % Lymphocytes 20.2 % (20.5-51.1); % Monocytes 8.1 % (1.7-9.3); % Neutrophils 65.8 % (42.2-75.2); Absolute Basophils 0.2 10^3/uL (0-0.2); Absolute Eosinophils 0.5 10^3/uL (0-0.7); Absolute Lymphocytes 2.5 10^3/uL (1.2-3.4); Absolute Neutrophils 8.1 10^3/uL (1.4-6.5); Hematocrit 42.8 % (39.0-52.0); Hemoglobin 15.1 g/dL (13.0-18.0); Mean Corp Hgb Conc. 35.3 g/dL (33.0-37.0); Mean Corpuscular Hgb 30.2 pg (27.0-31.0); Mean Corpuscular Volume 85.6 fL (80.0-94.0); Mean Platelet Volume 10.6 fL (7.4-10.4); Nucleated Red Blood Cells % 0 % (-); Platelet Count 337 10^3/uL (130-400); Red Cell Dist. Width 12.4 % (11.5-14.5); White Blood Cell Count 12.3 10^3/uL (4.8-10.8)
[2023-10-12 12:54] LABS: APTT 29.9 Sec (23.4-35.0)
[2023-10-12 13:28] LABS: ALT (SGPT) 34 U/L (0-50); AST (SGOT) 21 U/L (17-59); Albumin 4.2 g/dl (3.5-5.0); Alkaline Phosphatase 111 U/L (38-126); Blood Urea Nitrogen 31 mg/dl (9-20); Calcium 9.9 mg/dl (8.4-10.2); Carbon Dioxide 26 mmol/L (22-30); Chloride 97 mmol/L (98-107); Glucose 132 mg/dl (70-99); Potassium 4.6 mmol/L (3.5-5.1); Sodium 136 mmol/L (135-145); Total Bilirubin 0.5 mg/dl (0.2-1.3); Total Protein 7.8 g/dl (6.3-8.2); eGFR 51.35
--- NOTE | 2023-10-12 13:36 | ED.GENMED ---
History of Present Illness
General
Chief Complaint: Change in Mental Status
Source: patient
Exam Limitations: none
Time Seen by Provider: 10/12/23 12:18
Nursing documentation reviewed up to this point in time: agreed with
Travel History
Have you had any contact with someone who has COVID-19?: No
Do you have any symptoms of coronavirus? Fever > 100 degrees, chills, cough, shortness of breath, sore throat, loss of taste or smell, muscle aches, or headache?: No
History of Present Illness
History of Present Illness:
Patient with history of CVA last week, presents to ED from home secondary to intermittent episodes of slurred speech and confusion, noted by visiting physical therapist as well as spouse. Patient had similar episode 1 day after being discharged
home, attributed to possible low blood sugar. Upon arrival to ED, patient is without any complaints. Slurred speech no longer detected. Patient denies headache. Denies dizziness. Denies difficulty with swallowing. Denies loss of sensation or
weakness.
Past History
Past History
ED Past Medical History: HTN and NIDDM
Social History
Tobacco: Non-smoker
Alcohol: None
Review of Systems
Review of Systems
Allergies reviewed?: Yes
All Other Systems: ROS reviewed and negative except as documented in HPI and ROS
Constitutional: Reports no symptoms
Respiratory: Reports no symptoms
Cardiac: Reports no symptoms
ABD/GI: Reports no symptoms
Musculoskeletal: Reports no symptoms
Skin: Reports no symptoms
Neurological: Reports other (Slurred speech with confusion)
Phy Exam
Physical Exam
Physical Exam:
Physical Exam
General: no apparent distress, not acutely ill. afebrile.
Head: nc/at. eomi
Neck: supple. normal range of motion.
Heart: s1/s2 regular rate and rhythm, no murmur. equal radial pulses.
Lungs: no acute respiratory distress. clear bilaterally
Abdomen: normal bowel sounds. not tender.
Neuro: alert and oriented. no focal neurological deficits. normal speech.
Skin: no rash
Psychiatric: well kept. interactive and cooperative
Extremities: no edema. no calf tenderness.
Course
Orders/Labs/Results
Orders:
Orders
10/12/23
EEG Routine Routine
Reason for Exam: CPS
10/12/23 Breakfast
2200 calorie (18 carb) Diabetic
At Your Request: Full Participation
Does patient need a safe tray?: Yes
10/12/23 12:18
Electrocardiogram (*1) Urgent
Reason for Study: Fatigue / Weakness
CT Head W/o Iv Contrast Urgent
Comment:
Reason For Exam: mental status change
10/12/23 12:19
EKG- Treatment ONCE
EKG- Treatment ONCE
10/12/23 12:26
CMP [Comprehensive Metabolic Panel] Urgent
Complete Blood Count/With Diff Urgent
PTT Urgent
Prothrombin Time Urgent
10/12/23 13:17
Case Management Consult ONCE
Case Management Consult: Other
Comment[facility]
10/12/23 13:18
Physical Therapy Consult [Pt Eval And Treat] Urgent
Activity Level: As Tolerated
10/12/23 15:37
Admit/Transfer Patient As Directed
Co-Sign Provider:
Level of Care: Observation services
Assign to:: Telemetry
Physician / Group: do
Diagnosis: TIA
Reason for Telemetry: CVA/TIA
Date to Stop Telemetry: 10/15/23
Time to Stop Telemetry: 11:00
10/12/23 15:43
Code Status As Directed
Resuscitation Status: Full Code
10/12/23 16:07
Dextrose 50%-Water [Dextrose 50% Syringe] 12.5 grams IV [id number] PRN
Glucagon [GlucaGen] 1 mg IM PRN PRN
10/12/23 16:30
Insulin Aspart Corrective Low [Novolog Flexpen-Low Resistance] See Protocol SC AC
Insulin Aspart Pen [Novolog Flexpen] 6 units SC AC
10/12/23 17:50
Acetaminophen [Tylenol/Feverall] 650 mg RECTAL Q4HPRN PRN
Acetaminophen [Tylenol] 650 mg PO Q4HPRN PRN
METFORMIN HCl [Glucophage] 500 mg PO BID@0800,1700
10/12/23 17:50
Case Management Consult ONCE
Case Management Consult: Discharge Planning
Comment: stroke/tia
DIETARY CONSULT Routine
Reason for Consult: stroke/TIA
NEUROLOGY CONSULT Urgent
Consulting Provider: Ba Valero
Was physician already notified: Yes
Insulation Foreman Urgent
Activity As Directed
Activity Level: As Tolerated
Bedside Glucose Monitoring As Directed
Frequency: AC&HS
Additional Instructions:: Change to q6h if pt on TPN, tube feeding or not eating
NIH Stroke Scale As Directed
Directions: Per protocol
Comment: every shift and with any change in condition or mental status
Neurological Checks As Directed
Frequency: q4h
Additional Instructions:: q4h x 24h upon admission to the floor, then qshift & with any change in condition
and mental status
Patient Education As Directed
Type: Stroke education packet
Comment: provide to patient and family
Vital Signs As Directed
Frequency: Per unit guidelines
Ot Eval And Treat Routine
Pt Eval And Treat Routine
Activity Level: As Tolerated
Speech Therapy Eval & Treat Routine
DX Deep Vein Thrombosis Video Routine
10/12/23 18:00
Atorvastatin [Lipitor] 40 mg PO QPM
Enoxaparin Sodium [Lovenox] 40 mg SC QPM
10/12/23 18:11
Urine Culture Reflexed from UA [Urinalysis Reflex To Culture] Stat
Date Specimen was Collected: 10/12/23
Time Specimen was Collected: 18:08
10/12/23 20:00
Labetalol [Trandate] 100 mg PO BID
10/12/23 22:00
insulin glargine [Lantus Solostar U-100 Insulin] 8 unit SC HS
10/13/23 06:00
Basic Metabolic Panel IN AM
Cardiovascular Evaluation IN AM
Complete Blood Count/No Diff IN AM
Glycohemoglobin (HgbA1c) IN AM
10/13/23 08:00
Amlodipine [Norvasc] 10 mg PO DAILY
Aspirin Chewable [Low Strength Aspirin] 81 mg PO DAILY
Clopidogrel Bisulfate [Plavix] 75 mg PO DAILY
Hydrochlorothiazide [Oretic] 25 mg PO DAILY
Magnesium Oxide 500 mg PO DAILY
Spironolactone [Aldactone] 25 mg PO DAILY
Valsartan [Diovan] 320 mg PO DAILY
10/15/23 11:00
DC Protocol for Telemetry ONCE
Abnormal Lab Results
10/12/23 10/12/23
12:14 12:26
WBC 12.3 H 10^3/uL
(4.8-10.8)
MPV 10.6 H fL
(7.4-10.4)
Absolute Neuts (auto) 8.1 H 10^3/uL
(1.4-6.5)
Absolute Monos (auto) 1.0 H 10^3/uL
(0.1-0.6)
Lymphocytes % 20.2 L %
(20.5-51.1)
Chloride 97 L mmol/L
(98-107)
BUN 31 H mg/dl
(9-20)
Creatinine 1.5 H mg/dL
(0.7-1.3)
Glucose 132 H mg/dl
(70-99)
POC Glucose 132 H mg/dl
(70-99)
10/12/23 12:26
10/12/23 12:26
Vital Signs
Initial and Last Documented VS:
Initial Vital Signs
Temp Pulse Resp BP Pulse Ox
97.8 F 67 16 147/100 97
10/12/23 12:10 10/12/23 12:10 10/12/23 12:10 10/12/23 12:10 10/12/23 12:10
Last Documented Vital Signs
Temp Pulse Resp BP Pulse Ox
97.6 F 54 14 137/86 95
10/12/23 20:12 10/12/23 21:01 10/12/23 20:12 10/12/23 20:12 10/12/23 20:12
MDM/Problems Addressed
MDM/Problems Addressed:
CT head: NAD.
Pt with multiple episodes of brief garbled speech noted in ED.
Pt evaluated in ED by (neurology). Will order EEG. If negative, will consult case management, as patient appears to having intermittent, possible evolving stroke symptoms.
Will admit for further evaluation and treatment - including PT/OT/Speech evaluation, as well as PM&R.
*EKG
Interpreted by ED Provider?: Yes
EKG Intrepretation Date: 10/12/23
Heart Rate: 57
Rate: bradycardiac
Rhythm: sinus
[place]: normal axis
Interval: normal interval
QRS Pattern: normal QRS
*Critical Care Note
Total Time (30-74mins, 75-104mins- exclusive of procedures): Not Applicable
ED Attending Note
-
Portions of this chart may have been created with voice recognition software.� Occasional wrong word or��sound alike� substitutions may have occurred due to the inherent limitations of voice recognition software.
Discharge Plan
Departure
Patient Disposition: Admit
Date of Disposition: 10/12/23
Time of Disposition: 14:35
Admit to: Telemetry
Presentation/result/management discussed w/ accepting MD/DO: Hospitalist
Discharge Problem:
Slurring of speech
Interventions
Interventions:
*Risk Screen - Suicide Last Done: 10/12/23 12:10
*General Assessment Last Done: 10/12/23 12:10
*Neglect/Abuse Screening Last Done: 10/12/23 12:10
ED- Fall Risk Assessment Last Done: 10/12/23 19:54
*ED COVID-19 Vaccine History Last Done: 10/12/23 14:09
*Nursing Disposition Last Done: 10/12/23 19:54
ED- Pulmonary Assessment Last Done: 10/12/23 14:10
ED-Psychological Assessment Last Done: 10/12/23 17:00
ED- Neurological Assessment Last Done: 10/12/23 14:10
ED- Cardiac Assessment Last Done: 10/12/23 14:10
ED Swallowing Screen Last Done: 10/12/23 17:22
Discharge Date and Time
Discharge Date/Time: 10/12/23 19:54
--- NOTE | 2023-10-12 14:15 | CON.NEURO4 ---
Consultation - Neurology 4
-
CONSULTING PHYSICIAN: Griffin Valero
REFERRING PHYSICIAN: ER
DICTATED BY: Griffin Valero
DATE/TIME OF REQUEST: 10/12/23
DATE/TIME OF CONSULTATION: 10/12/23
Reason for Consultation: Confusion
History of Present Illness:
The patient is a 67-year-old man with recent multifocal ischemic strokes as well as newly diagnosed and treated hypertension and uncontrolled diabetes mellitus presenting the hospital with instances of confusion and speech abnormality noticed by his
and physical therapist at home.
Patient had had a hospitalization here in the middle of September when he presented with lethargy confusion and speech change and actually had had some degree of personality and behavioral change for a few weeks prior to being hospitalized.
His says that the patient does seem worse with regard to cognition and behavior compared to when he first got home after his stroke. His new baseline has shown periods of staring and inattentiveness and not reacting to things she says. He
will sometimes have short lasting instances of very slurred speech and word difficulty. He has not had any overt weakness or paresthesia or difficulty walking headaches or loss of consciousness. There have not been any discrete episodes of
convulsive activity of loss of consciousness or subtle jerking of the face.
Patient's does get some help with home physical therapy but otherwise she feels fairly alone and taking care of her and has found the process overwhelmed, she is facing her own health issues with significant back problems and had recent
epidural injections, most days she is very distressed and crying due to patient's new symptoms from the stroke.
Patient had had an ED visit here where he had 1 of these confusion episodes and it was felt that he probably had had hypoglycemia as a possible explanation and had corresponding adjustments to his insulin. Patient has been compliant with
medications including insulin and statin aspirin clopidogrel and blood pressure medications.
Patient has shown some degree of personality and behavioral change where he would sometimes be sweet to his and sometimes be highly irritable and not very agreeable to cooperating with medical care.
Past Medical History: Recent multifocal ischemic stroke, diabetes mellitus on insulin, hypertension, suspected obstructive sleep apnea,
Surgical History: None
Family History: Non-contributory
Social History: Patient is and lives with his , he retired in April, former smoker 1/2 -1 PPD for 20-30 years, alcohol use in the past with beer
Allergies: No known drug allergies
Review of Symptoms:
Patient denies any fever, headache, chest pain, shortness of breath, GI or symptoms.
Physical Exam:
Middle-age man no acute distress no signs of head or neck trauma oropharynx is clear, abdomen is obese soft nontender, heart rate regular breathing unlabored lower extremity edema or rash
Neurologic Examination:
Patient is awake and alert he tracks and attends to the examiner and answers basic questions, he is able to answer the president does not get the year correct does know the current month, he shows significant psychomotor slowing and difficulty with
complex tasks of cognition, difficulty reciting the months of the year forwards, when counting to 50 he will skip from 20-50, some difficulty with multistep commands, impairment of short-term memory, comprehension of basic test is intact, there is
decrease in spontaneous verbal output. He does show some impairment in showing little response to his at bedside's distress and stress over his current medical situation.. On cranial nerve assessment, pupils are 3 mm bilateral, round and
reactive to light and accommodation. Visual brennan are full. Extraocular movements are intact. Facial sensations are intact and bilaterally symmetrical, there is no facial asymmetry. Hearing is intact bilaterally to normal conversation volume.
Tongue palate and uvula are midline. Sternocleidomastoid strengths are full bilaterally. Motor strengths are 5/5 bilateral upper and lower extremities on medical research [place] scale. There is no drift or involuntary movement noted. Deep tendon
reflexes are 2+ bilateral upper and lower extremities and Babinski is absent bilaterally. Coordination is intact by finger to nose bilaterally.
Neuro Imaging: CT head with chronic white matter ischemic changes, no acute infarct, hemorrhage or mass, no significant change compared to previous MRI brain
Impressions:
I suspect that most of the patient's issues that his has shown concern about are due to the significant effects of multifocal strokes on the patient's overall cognitive and psychological function producing a new baseline for him. He has
significant post stroke cognitive impairment. Patient does not have any overt paralysis strong physical impairments from the stroke but rather has significant cognitive and mental adverse effects producing a new baseline after the stroke and I
feel that this is producing some degree of caregiver fatigue and extreme difficulty in adjusting for his .
History does not suggest to me that there have been discrete episodes that are highly concerning for seizure but I do think that an EEG would be worthwhile given there seems to be some episodes of having more neurologic symptoms, but these seem hard
to tease apart from his neurologic baseline as a result of stroke. There were some episodes of tearfulness (possibly pseudobulbar affect) but these seems to have mostly resolved.
Patient's strokes were highly likely to been caused by diffuse small vessel and atherosclerotic disease given years of uncontrolled hypertension and diabetes.
On my examination today the patient is quite similar to my last examination of him on 10/01
CT head noncontrast has failed to show any brand-new finding structurally on the brain and his neurologic examination does not show any new deficits of cranial nerves or motor function but is more characterized by significant cognitive impairment.
Recommendations:
1. Check routine EEG
2. Will continue with the existing aspirin and clopidogrel with end date of clopidogrel 10/20
3. Minimize sedating medications
4. Would benefit from additional support at home and consideration for PT/OT and inpatient rehabiliation potential
5. Continue treating diabetes and hypertension
6. I do not see at this point that the patient would have strong benefit from mood stabilizing medication (SSRI most likely) but this could be helpful for future
7. With no new focal deficits and similar appearing CT head do not see utility in obtaining new MRI brain as I don't see it would change our management
Discussed patient care with: Dr Harper, patient and his
--- NOTE | 2023-10-12 14:45 | EEG.RPT ---
Electroencephalogram Report
Recording
Date of EE10/12/23
Type of EEG: Routine
Length of EEG recordin minutes
Done with Video Recording: Yes
Patient Status: Emergency Room
Recording Conditions: Awake and Drowsy
Hyperventilation Performed: No
Photic Stimulation Performed: Yes
Report
LESS THAN 1 HOUR EEG REPORT
LESS THAN 1 HOUR EEG INTERPRETATION:
Mildly abnormal EEG for age in wakefulness through sleep due to mild diffuse bihemispheric slowing
CLINICAL CORRELATION:
This study was suggestive of mild diffuse cortical dysfunction without focal abnormality. No seizures were recorded.
Clinical correlation is advised.
METHODS:
A 21 channel digitized electroencephalogram (EEG) was performed at the bedside. The 10/20 international system of electrode placement was used with ECG and lateral/vertical eye movements recorded.
QUALITY OF STUDY:
Fair
ELECTROENCEPHALOGRAPHER IMPRESSION(S):
Background
Amplitude: Unremarkable
Anterior-Posterior Organization: Fair, good at times
Maximum: Theta
Asymmetry: None
Sleep
Drowsiness present
Photic Stimulation
Failed to activate the record
ECG
Normal sinus rhythm
--- NOTE | 2023-10-12 15:13 | HPS.HSE ---
Addendum entered and electronically signed by Markell Tran MD 10/12/23 16:21:
67-year-old male with a past medical history of recent stroke, hypertensive emergency, and newly diagnosed type 2 diabetes presents with recurrent intermittent confusion, aphasia.
He was recently discharged on 10/07/2023, PT recommended acute rehab.
Patient and family wished him to go home with home PT. Now family wishes him to go to acute rehab.
Appreciate neurology input, who recommends checking EEG, continuing Plavix through 10/21/2023, continuing aspirin.
No need for repeat brain MRI. Consult PT/OT/SPL.
I have personally seen and examined the patient, and agree with the plan of care as documented by DAVID Snyder.
Advance care planning discussed, patient is a full code.
All other issues as outlined by the advanced care practitioner.
Original Note:
Family Physician
-
Family Physician: Toni Goldberg
Chief Complaint
-
Slurred speech confusion
History of Present Illness
67-year-old man with recent multifocal ischemic strokes as well as newly diagnosed and treated hypertension and uncontrolled diabetes mellitus presenting the hospital with instances of confusion and speech abnormality noticed by his and
physical therapist at home. says that the patient does seem worse with regard to cognition and behavior compared to when he first got home after his stroke. Patient denied headache, dizziness, syncopal episode. Patient denied blurry vision,
numbness, tingling. stated, he is using his reading glasses more often than he used to to see things. Denied chest pain or short of breath. Patient denied abdominal pain, nausea, vomiting, diarrhea. Patient denied dysuria hematuria.
Head CT with no acute findings.
EEG with no seizure.
Admitting for further management
Medical History
Past Medical History
Past Medical History: Reports Other
Additional Past Medical History:
Recent multifocal ischemic stroke, diabetes mellitus on insulin, hypertension, suspected obstructive sleep apnea
Past Surgical History: Reports Other
Additional Past Surgical History:
[place] tooth extraction
Social History
Tobacco: Former Smoker
Alcohol: None
Drug: None
Personal:
Living: With Family
Family History
Family History: Not pertinent
Allergies / Home Medications
Allergies reflects when Allergies were last updated in [facility].
Home Medications with original date entered in [facility]
Allergy/Medication List:
Allergies
Allergy/AdvReac Type Severity Reaction Status Date / Time
No Known Allergies Allergy Verified 10/08/23 10:40
Home Medications
amlodipine 10 mg tablet 10 mg PO DAILY 30 days #30 tabs 10/06/23
aspirin 81 mg chewable tablet (Children's Aspirin) 81 mg PO DAILY 30 days #30 tabs 10/06/23
atorvastatin 40 mg tablet 40 mg PO QPM 30 days #30 tabs 10/06/23
clopidogrel 75 mg tablet 75 mg PO DAILY 15 days #15 tabs 10/06/23
hydrochlorothiazide 25 mg tablet 25 mg PO DAILY 30 days #30 tabs 10/06/23
labetalol 100 mg tablet 100 mg PO BID 30 days #60 tabs 10/06/23
magnesium oxide 500 mg PO DAILY 30 days #30 tabs 10/06/23
metformin 500 mg tablet 500 mg PO BID@0800,1700 30 days #60 tabs 10/06/23
spironolactone 25 mg tablet 25 mg PO DAILY 30 days #30 tabs 10/06/23
valsartan 320 mg tablet 320 mg PO DAILY 30 days #30 tabs 10/06/23
bismuth subsalicylate 262 mg chewable tablet (Pepto-Bismol) 2 tab PO Q1HPRN PRN stomach issues 10/12/23
insulin aspart U-100 100 unit/mL (3 mL) subcutaneous pen 6 unit SC AC 10/12/23
insulin glargine 100 unit/mL (3 mL) subcutaneous pen (Lantus Solostar U-100 Insulin) 8 unit SC HS 10/12/23
Review of Systems
-
Constitutional: Reports No Symptoms
EENT: Reports No Symptoms
Respiratory: Reports No Symptoms
Cardiac: Reports No Symptoms
Abdomen/GI: Reports No Symptoms
: Reports No Symptoms
Musculoskeletal: Reports No Symptoms
Skin: Reports No Symptoms
Neurological: Reports Other (Slurred speech, confusion)
Endocrine: Reports No Symptoms
Hematologic/Lymphatic: Reports No Symptoms
Psych: Reports No Symptoms
Physical Exam
Vital Signs
Vital Signs
Temp Pulse Resp BP Pulse Ox
97.8 F 67 16 147/100 97
10/12/23 12:10 10/12/23 12:10 10/12/23 12:10 10/12/23 12:10 10/12/23 12:10
Physical Exam
General: Well Developed, Well Nourished and No Apparent Distress
HEENT: NormoCephalic, Moist mucous membranes and Atraumatic
Respiratory: Clear
Cardiac: S1/S2 and Regular Rhythm; No Murmur or Rub
GI: Soft, Non Tender, Non Distended and Normal Bowel Sounds; No Organomegaly
Rectal: Deferred by Provider
Musculoskeletal: No Clubbing, No Cyanosis and No Edema
Skin: No Rash
Neuro: AO x 3 and Nonfocal/grossly intact
Psych: Calm
Laboratory Results
-
10/12/23 12:26
10/12/23 12:26
Laboratory Results
PT 14.0 Sec (11.4-14.6) 10/12/23 12:
INR 1.10 10/12/23 12:26
APTT 29.9 Sec (23.4-35.0) 10/12/23 12:26
Total Bilirubin 0.5 mg/dl (0.2-1.3) 10/12/23 12:26
AST 21 U/L (17-59) 10/12/23 12:
ALT 34 U/L (0-50) 10/12/23 12:26
Alkaline Phosphatase 111 U/L (38-126) 10/12/23 12:26
Data Reviewed
-
CT Scan: Report Reviewed by me
Lab Data: Labs Reviewed by me
Impression/Plan
-
# Garbled speech with confusion likely residual from previous CVA
# Recent CVA with gait abnormality
-CT head negative
-EEG negative for seizure
-Aspirin Plavix continued PT/OT/speech
-Statin continued
# Leukocytosis likely reactive
-WBC 12.3
-Afebrile-
-obtain urinalysis
# Acute kidney injury
-Creatinine 1.5
#Hypertensive urgency
-Norvasc, hydrochlorothiazide continued
-Labetalol continued
-Spironolactone continued
-Valsartan continued
#Hyperlipidemia
-atorvastatin 40 mg at bedtime, continue
# type 2 diabetes
- metformin continued
-Lantus 8 units at bedtime
-aspart 6u with meals.
-CHO diet.
-Sliding scale
#Obesity due to excess calories
Affects all aspects of care
DVT prophylaxis SCD
Full code
--- NOTE | 2023-10-12 15:58 | CM ---
management manager reviewed patient's chart and met with patient and spouse at bedside, pain was recently discharge from [facility] home with spouse and VN. Patient lives with spouse in a 2 story home, patient was independent with adl's and
used a cane with ambulation, patient has a prescription plan and uses [facility].
Plan; Patient needs to be evaluated for rehab. Possibly [facility].
[2023-10-12 16:24] LABS: Glucose - Point of Care 85 mg/dl (70-99)
[2023-10-12 17:17] LABS: Glucose - Point of Care 168 mg/dl (70-99)
[2023-10-12] MEDS: NOVOLOG FLEXPEN-LOW RESISTANCE 1 UNITS SC (17:23)
[2023-10-12 18:28] LABS: Urine Albumin Negative (Neg - Trace); Urine Bilirubin Negative (Negative); Urine Character Clear (Clear); Urine Color Yellow; Urine Glucose Negative (Negative); Urine Ketone Negative (Negative); Urine Leukocyte Negative (Negative); Urine Nitrite Negative (Negative); Urine Occult Blood Negative (Negative); Urine Urobilinogen Negative (Neg - 1+)
[2023-10-12] MEDS: NOVOLOG FLEXPEN SC (18:32)
[2023-10-12] MEDS: LOVENOX 40 MG SC (18:35)
[2023-10-12] MEDS: LIPITOR 40 MG PO (18:36)
[2023-10-12] MEDS: GLUCOPHAGE 500 MG PO (18:36)
[2023-10-12] MEDS: LANTUS 0.0800000000000000017 UNITS SC (20:32)
[2023-10-12 20:35] LABS: Glucose - Point of Care 166 mg/dl (70-99)
[2023-10-12] MEDS: TRANDATE PO (21:01)
--- NOTE | 2023-10-12 22:00 | PTCARENOTE ---
Patient received from ED via stretcher. Patient ambulated independently into room with supervision. at bedside reports patient has been impulsive s/p CVA and will often 'jump out of bed' to go to the bathroom in the middle of the night, bed
alarm placed on bed. Call meléndez and fall precautions reviewed with patient. Stroke packet given to patient. POC reviewed with patient/spouse, care on going.
[2023-10-13] VITALS (7 sets, daily range): BP systolic 130–161; BP diastolic 74–92; PULSE 60; O2SAT 94
[2023-10-13 07:15] LABS: Hematocrit 43.3 % (39.0-52.0); Hemoglobin 15.5 g/dL (13.0-18.0); Mean Corp Hgb Conc. 35.8 g/dL (33.0-37.0); Mean Corpuscular Hgb 30.5 pg (27.0-31.0); Mean Corpuscular Volume 85.1 fL (80.0-94.0); Mean Platelet Volume 10.5 fL (7.4-10.4); Platelet Count 303 10^3/uL (130-400); Red Blood Cell Count 5.09 10^6/uL (4.70-6.10); Red Cell Dist. Width 12.3 % (11.5-14.5); White Blood Cell Count 11.5 10^3/uL (4.8-10.8)
--- NOTE | 2023-10-13 07:43 | W.PN.NEURO.1 ---
Today's Communication / Plan
-
continue with the existing aspirin and clopidogrel with end date of clopidogrel 10/20
Minimize sedating medications
Would benefit from additional support at home and consideration for PT/OT and inpatient rehabiliation potential
Continue treating diabetes and hypertension
Neuro Assessment/Plan
Assessment
Neuro Imaging: CT head with chronic white matter ischemic changes, no acute infarct, hemorrhage or mass, no significant change compared to previous MRI brain
EEG failed to demonstrate epileptiform activity
Impressions:
Due to the significant effects of multifocal strokes on the patient's overall cognitive and psychological function producing a new baseline for him. He has significant post stroke cognitive impairment.
Patient's strokes were highly likely to been caused by diffuse small vessel and atherosclerotic disease given years of uncontrolled hypertension and diabetes.
Plan
Recommendations:
continue with the existing aspirin and clopidogrel with end date of clopidogrel 10/20
Minimize sedating medications
Would benefit from additional support at home and consideration for PT/OT and inpatient rehabiliation potential
Continue treating diabetes and hypertension
We will follow as outpatient.
Subjective/Objective
Subjective Data
Date of Service: October 13, 2023
Objective Data
Vital Signs
Temp Pulse Resp BP Pulse Ox
36.4 C 54 14 137/86 95
10/12/23 20:12 10/12/23 21:01 10/12/23 20:12 10/12/23 20:12 10/12/23 20:12
Lab Results
10/13/23 06:46
PT 14.0 Sec (11.4-14.6) 10/12/23 12:26
INR 1.10 10/12/23 12:26
APTT 29.9 Sec (23.4-35.0) 10/12/23 12:26
Sodium 136 mmol/L (135-145) 10/12/23 12:26
Potassium 4.6 mmol/L (3.5-5.1) 10/12/23 12:26
BUN 31 mg/dl (9-20) H 10/12/23 12:26
Glucose 132 mg/dl (70-99) H 10/12/23 12:26
Calcium 9.9 mg/dl (8.4-10.2) 10/12/23 12:26
Patient Allergies
No Known Allergies Allergy (Verified 10/08/23 10:40)
Data Reviewed
-
Labs: Report Reviewed
Reviewed with: Physician
Old Records: Summarized
Past History
Past History
ED Past Medical History: HTN, NIDDM and Other (Vascular cognitive impairment)
ED Past Surgical History: None
Social History
Tobacco: Non-smoker
Alcohol: None
Family History
Family History: Other (Reviewed and noncontributory)
Medications
-
Medications:
Generic Name Dose Route Start Last Admin
Trade Name Freq PRN Reason Stop Dose Admin
Acetaminophen 650 mg 10/12/23 17:50
Acetaminophen 650 Mg Rectal Suppository RECTAL 11/09/23 17:49
Q4HPRN PRN
OLVERA, mild pain, or temp >100.4F
Acetaminophen 650 mg 10/12/23 17:50
Acetaminophen 325 Mg Tablet PO 11/09/23 17:49
Q4HPRN PRN
OLVERA, mild pain, or temp >100.4F
Amlodipine Besylate 10 mg 10/13/23 08:00
Amlodipine 10 Mg Tablet PO 11/10/23 07:59
DAILY ALMAZ
Aspirin 81 mg 10/13/23 08:00
Aspirin 81 Mg Chewable Tablet PO 11/10/23 07:59
DAILY ALMAZ
Atorvastatin Calcium 40 mg 10/12/23 18:00 10/12/23 18:36
Atorvastatin (Lipitor) 40 Mg Tablet PO 11/09/23 17:59 40 mg
QPM ALMAZ Administration
Clopidogrel Bisulfate 75 mg 10/13/23 08:00
Clopidogrel 75 Mg Tablet PO 11/10/23 07:59
DAILY ALMAZ
Dextrose 12.5 grams 10/12/23 16:22
Dextrose 50% (0.5 Grams/Ml) 50 Ml Syringe IV 11/09/23 16:21
[id number] PRN
hypoglycemia
Protocol
Enoxaparin Sodium 40 mg 10/12/23 18:00 10/12/23 18:35
Enoxaparin Sodium 40 Mg/0.4 Ml Syringe SC 11/09/23 17:59 40 mg
QPM ALMAZ Administration
Glucagon 1 mg 10/12/23 16:22
Glucagon 1 Mg Vial IM 11/09/23 16:21
PRN PRN
hypoglycemia
Protocol
Hydrochlorothiazide 25 mg 10/13/23 08:00
Hydrochlorothiazide 25 Mg Tablet PO 11/10/23 07:59
DAILY ALMAZ
Insulin Glargine 8 units/ 0.08 mls @ 0 mls/hr 10/12/23 22:00 10/12/23 20:32
Device SC 11/09/23 21:59 0.08 mls
HS ALMAZ Administration
As Directed
Insulin Aspart 6 units 10/12/23 16:30 10/12/23 18:32
Insulin Aspart (100 Units/Ml) 3 Ml Flexpen SC 11/09/23 16:29 Not Given
AC ALMAZ
Insulin Aspart 0 units 10/12/23 16:30 10/12/23 17:23
Insulin Aspart Low Resistance 300 Units/3 Ml Pen.Injctr SC 11/09/23 16:29 1 units
AC ALMAZ Administration
Protocol
Labetalol HCl 100 mg 10/12/23 20:00 10/12/23 21:01
Labetalol 100 Mg Tablet PO 11/09/23 19:59 Not Given
BID ALMAZ
Magnesium Oxide 500 mg 10/13/23 08:00
Magnesium Oxide 500 Mg Tablet PO 11/10/23 07:59
DAILY ALMAZ
Metformin HCl 500 mg 10/12/23 17:50 10/12/23 18:36
Metformin 500 Mg Regular Release Tablet PO 11/09/23 17:49 500 mg
BID@0800,1700 ALMAZ Administration
Ondansetron HCl 4 mg 10/12/23 17:50
Ondansetron 4 Mg/2 Ml Vial IV 11/09/23 17:49
Q6HPRN PRN
NAUSEA/VOMITING
Sodium Chloride 0 flush 10/12/23 18:00
Sodium Chloride 0.9% (Flush) Syringe IV 11/09/23 17:59
PER PROTOCOL ALMAZ
Spironolactone 25 mg 10/13/23 08:00
Spironolactone 25 Mg Tablet PO 11/10/23 07:59
DAILY ALMAZ
Valsartan 320 mg 10/13/23 08:00
Valsartan 80 Mg Tablet PO 11/10/23 07:59
DAILY ALMAZ
[2023-10-13 07:44] LABS: Blood Urea Nitrogen 28 mg/dl (9-20); Calcium 9.6 mg/dl (8.4-10.2); Carbon Dioxide 25 mmol/L (22-30); Chloride 98 mmol/L (98-107); Estimated Creatinine Clearance 69 ml/min; Glucose 122 mg/dl (70-99); HDL Cholesterol 34 mg/dl; LDL Cholesterol, Calculated 62 mg/dl; Potassium 4.2 mmol/L (3.5-5.1); Sodium 135 mmol/L (135-145); Total Cholesterol 126 mg/dl (50-199); Triglyceride 151 mg/dl (10-149); Very Low Density Lipoprotein 30 mg/dl (0-30); eGFR 55.78
[2023-10-13 08:37] LABS: Glucose - Point of Care 120 mg/dl (70-99)
[2023-10-13] MEDS: NOVOLOG FLEXPEN-LOW RESISTANCE SC ×3 (08:37→16:58)
--- NOTE | 2023-10-13 09:03 | PTOTSP ---
Speech Therapy Assessment
Oral/pharyngeal swallow deemed within functional limits without overt signs of aspiration.
Patient exhibits at significant cognitive-communication deficits in the areas of initiation, sustained attention, complex auditory processing and perseveration.
Further comprehensive testing recommended in next level of care. Awaiting acceptance into acute rehab.
Recommend
1. Continue Regular solids and thin liquids
2. ST is warranted in next level of care to further assess and address significant cognitive-communication deficits.
3. Will follow up as able in acute care to address above mentioned deficits.
[2023-10-13] MEDS: MAGNESIUM OXIDE 500 MG PO (09:12)
[2023-10-13] MEDS: DIOVAN 320 MG PO (09:12)
[2023-10-13] MEDS: TRANDATE 100 MG PO ×2 (09:12→22:27)
[2023-10-13] MEDS: ALDACTONE 25 MG PO (09:12)
[2023-10-13] MEDS: LOW STRENGTH ASPIRIN 81 MG PO (09:13)
[2023-10-13] MEDS: PLAVIX 75 MG PO (09:13)
[2023-10-13] MEDS: NORVASC 10 MG PO (09:13)
[2023-10-13] MEDS: ORETIC 25 MG PO (09:13)
[2023-10-13] MEDS: GLUCOPHAGE 500 MG PO ×2 (09:14→16:58)
[2023-10-13] MEDS: NOVOLOG FLEXPEN 6 UNITS SC ×3 (09:14→16:58)
--- NOTE | 2023-10-13 09:15 | W.PN.HOSP.TC ---
Today's Communication/Plan
-
see bold
Assessment / Plan
Assessment / Plan
#Recent acute�subacute infarcts
#Old infarcts
Appreciate neurology input, continue aspirin 81, atorvastatin 40 mg at bedtime
Neurology also recommends Plavix 75 mg daily for 21 days through 10/21/2023
PT/OT/SPL, continue treating hypertension and diabetes
PT had originally recommended acute rehab during previous hospitalization, however and patient wished to go home with home PT
Consult physiatry for acute rehab
#Poststroke cognitive impairment
Per neurology, this could be a new baseline for him
#Benign essential hypertension
Continue amlodipine 10 mg daily, hydrochlorothiazide 25 mg daily, labetalol 100 mg twice a day, and Aldactone 25 mg daily
#Recently diagnosed type 2 diabetes, hemoglobin A1c 10.9
Continue home insulin regimen, metformin, continue sliding scale insulin, diabetes education
#Likely obstructive sleep apnea
Outpatient sleep study recommended
#Obesity due to excess calories
Affects all aspects of care
DVT prophylaxis Lovenox
Full code
Updated at bedside 10/12
Total time spent to see the patient on the floor, examine the patient, review data and lab results, discuss treatment plan with patient, nursing staff around 35 minutes.
Physical Exam
General: Obese, no acute distress
HEENT: Normocephalic, Atraumatic, EOMI, MMM
Respiratory: Clear to Auscultation bilaterally
Cardiac: Normal S1/S2, Regular Rate and Rhythm
GI: Soft, Nontender, Nondistended, Normal Bowel Sounds
Extremities: No Clubbing, Cyanosis, or Edema
Neuro: Slow to respond
Psych: Calm, Cooperative
Derm: No Visible lesions
Anticipated Discharge: 24 - 48 hours
Subjective/Interval History
-
Date of Service: October 13, 2023
Patient continues to have waxing waning speech difficulties. No fever, no vomiting.
Objective Data
-
Labs:
Laboratory Results
10/13/23
06:46
WBC 11.5 H
Hgb 15.5
Hct 43.3
Plt Count 303
Sodium 135
Potassium 4.2
Chloride 98
Carbon Dioxide 25
BUN 28 H
Creatinine 1.4 H
Glucose 122 H
Calcium 9.6
Vital Signs:
Vital Signs
Temp Pulse Resp BP Pulse Ox
97.4 F 68 18 161/90 94
10/13/23 07:30 10/13/23 07:30 10/13/23 07:30 10/13/23 07:30 10/13/23 07:30
I&O
10/12/23 10/13/23 10/14/23
06:59 06:59 06:59
Intake Total 240 / 240
Output Total 360 / 360
Balance -120 / -120
--- NOTE | 2023-10-13 11:18 | PTCARENOTE ---
Pt's alerted nurse to 'new symptoms' of stroke in patient. RN went to evaluate and pt was slurring words, not making sense of his sentences. NIH performed and scored an 8. This is higher than this morning when the patient scored a 1 for slurred
speech. Pt is unable to follow some commands. Neurologist Willian notified on tt and alerted that RN was prompted to call a stroke alert. Rn was advised not to call the alert. Neurology following patient. Vitals stable at this time. Will await any new
orders.
[2023-10-13 11:59] LABS: Glucose - Point of Care 139 mg/dl (70-99)
[2023-10-13] MEDS: VITAMIN B1 100 MG PO (12:00)
--- NOTE | 2023-10-13 14:20 | CM ---
Addendum entered by DAIN Calderon 10/13/23 16:20:
Received return call from Ofelia in admissions at [facility] who stated that as of right now she does not have any beds at [facility] in [place] just in [place]. Carine, PT updated.
Will meet with patient to determine if he is agreeable to different location.
Original Note:
Received update from Carine in PT who stated that patient may be a good candidate for [facility]. Placed a call to Ofelia in admissions at [facility]. Left voice mail message and provided CM contact information.
Plan: Case management will continue to follow and assist with discharge planning. [facility] if appropriate and bed is available.
[2023-10-13 16:54] LABS: Glucose - Point of Care 118 mg/dl (70-99)
[2023-10-13] MEDS: LIPITOR 40 MG PO (17:00)
[2023-10-13] MEDS: LOVENOX 40 MG SC (17:00)
[2023-10-13 21:44] LABS: Glucose - Point of Care 108 mg/dl (70-99)
[2023-10-13] MEDS: LANTUS 0.0800000000000000017 UNITS SC (22:28)
[2023-10-14 07:00] VITALS: BP 151/91
[2023-10-14 07:02] LABS: Hematocrit 41.4 % (39.0-52.0); Hemoglobin 14.8 g/dL (13.0-18.0); Mean Corp Hgb Conc. 35.7 g/dL (33.0-37.0); Mean Corpuscular Hgb 30.3 pg (27.0-31.0); Mean Corpuscular Volume 84.7 fL (80.0-94.0); Mean Platelet Volume 10.5 fL (7.4-10.4); Platelet Count 279 10^3/uL (130-400); Red Blood Cell Count 4.89 10^6/uL (4.70-6.10); Red Cell Dist. Width 12.2 % (11.5-14.5); White Blood Cell Count 10.2 10^3/uL (4.8-10.8)
[2023-10-14 07:33] LABS: Blood Urea Nitrogen 31 mg/dl (9-20); Calcium 10.2 mg/dl (8.4-10.2); Carbon Dioxide 23 mmol/L (22-30); Chloride 99 mmol/L (98-107); Estimated Creatinine Clearance 69 ml/min; Glucose 124 mg/dl (70-99); Magnesium 1.8 mg/dl (1.6-2.3); Sodium 135 mmol/L (135-145); eGFR 55.78
[2023-10-14 07:57] LABS: Glucose - Point of Care 135 mg/dl (70-99)
[2023-10-14] MEDS: NOVOLOG FLEXPEN-LOW RESISTANCE SC ×2 (08:19→17:06)
[2023-10-14] MEDS: DIOVAN 320 MG PO (09:10)
[2023-10-14] MEDS: ALDACTONE 25 MG PO (09:11)
[2023-10-14] MEDS: VITAMIN B1 100 MG PO (09:11)
[2023-10-14] MEDS: PLAVIX 75 MG PO (09:11)
[2023-10-14] MEDS: ORETIC 25 MG PO (09:11)
[2023-10-14] MEDS: MAGNESIUM OXIDE 500 MG PO (09:11)
[2023-10-14] MEDS: NOVOLOG FLEXPEN 6 UNITS SC ×3 (09:11→17:06)
[2023-10-14] MEDS: NORVASC 10 MG PO (09:11)
[2023-10-14] MEDS: TRANDATE 100 MG PO ×2 (09:11→23:08)
[2023-10-14] MEDS: GLUCOPHAGE 500 MG PO ×2 (09:11→17:07)
[2023-10-14] MEDS: LOW STRENGTH ASPIRIN 81 MG PO (09:11)
--- NOTE | 2023-10-14 09:48 | CM ---
Addendum entered by Gloria Mcgee 10/14/23 16:59:
Unfortunately unable to get a lemon picker time at 5pm and plan is for transfer on 10/15/23 at 11am, patient and spouse are aware.
Addendum entered by Gloria Mcgee 10/14/23 14:37:
Patient has been accepted at [facility] today per admissions at [place] they would like a 5pm lemon picker. Will await confirmation on lemon picker time.
Original Note:
restaurant general manager reached out to patient's spouse this morning to discuss acute rehab options, [facility] at [place], [place] and [facility]. There are no beds at [facility]. Referral sent through [employer].
Plan; To follow up with acute rehab referrals on patient.
--- NOTE | 2023-10-14 09:55 | W.PN.HOSP.TC ---
Today's Communication/Plan
-
Discharge to acute rehab today
Assessment / Plan
Assessment / Plan
#Recent acute�subacute infarcts
#Old infarcts
Appreciate neurology input, continue aspirin 81, atorvastatin 40 mg at bedtime
Neurology also recommends Plavix 75 mg daily for 21 days through 10/21/2023
PT/OT/SPL, continue treating hypertension and diabetes
PT had originally recommended acute rehab during previous hospitalization, however and patient wished to go home with home PT
Medically stable for discharge to acute rehab today
#Poststroke cognitive impairment
Per neurology, this could be a new baseline for him
#Benign essential hypertension
Continue amlodipine 10 mg daily, hydrochlorothiazide 25 mg daily, labetalol 100 mg twice a day, and Aldactone 25 mg daily
#Recently diagnosed type 2 diabetes, hemoglobin A1c 10.9
Continue home insulin regimen, metformin, continue sliding scale insulin, diabetes education
#Likely obstructive sleep apnea
Outpatient sleep study recommended
#Obesity due to excess calories
Affects all aspects of care
DVT prophylaxis Lovenox
Full code
Updated at bedside 10/13
Physical Exam
General: Obese, no acute distress
HEENT: Normocephalic, Atraumatic, EOMI, MMM
Respiratory: Clear to Auscultation bilaterally
Cardiac: Normal S1/S2, Regular Rate and Rhythm
GI: Soft, Nontender, Nondistended, Normal Bowel Sounds
Extremities: No Clubbing, Cyanosis, or Edema
Neuro: Slow to respond, intermittent aphasia noted
Psych: Calm, Cooperative
Derm: No Visible lesions
Anticipated Discharge: Today
Subjective/Interval History
-
Date of Service: October 14, 2023
Patient speech waxes and wanes, is improved today. No fever, no vomiting.
Objective Data
-
Labs:
Laboratory Results
10/14/23
06:39
WBC 10.2
Hgb 14.8
Hct 41.4
Plt Count 279
Sodium 135
Potassium 4.0
Chloride 99
Carbon Dioxide 23
BUN 31 H
Creatinine 1.4 H
Glucose 124 H
Calcium 10.2
Vital Signs:
Vital Signs
Temp Pulse Resp BP Pulse Ox
97.7 F 59 18 151/91 97
10/14/23 07:00 10/14/23 07:00 10/14/23 07:00 10/14/23 07:00 10/14/23 07:00
I&O
10/13/23 10/14/23 10/15/23
06:59 06:59 06:59
Intake Total 240 / 240 1160 / 1160
Output Total 360 / 360
Balance -120 / -120 1160 / 1160
[2023-10-14 11:00] VITALS: BP 128/79
[2023-10-14 12:26] LABS: Glucose - Point of Care 166 mg/dl (70-99)
[2023-10-14] MEDS: NOVOLOG FLEXPEN-LOW RESISTANCE 1 UNITS SC (12:29)
[2023-10-14 15:00] VITALS: BP 142/82
[2023-10-14 17:03] LABS: Glucose - Point of Care 101 mg/dl (70-99)
[2023-10-14] MEDS: LIPITOR 40 MG PO (17:07)
[2023-10-14] MEDS: LOVENOX 40 MG SC (17:08)
[2023-10-14 19:50] VITALS: BP 131/86
[2023-10-14 21:15] LABS: Glucose - Point of Care 91 mg/dl (70-99)
[2023-10-14] MEDS: LANTUS 0.0800000000000000017 UNITS SC (23:07)
[2023-10-14 23:27] VITALS: BP 134/80
[2023-10-15 03:20] VITALS: BP 134/77
[2023-10-15 07:25] LABS: Hemoglobin 15.3 g/dL (13.0-18.0); Mean Corp Hgb Conc. 34.8 g/dL (33.0-37.0); Mean Corpuscular Hgb 30.3 pg (27.0-31.0); Mean Corpuscular Volume 87.1 fL (80.0-94.0); Mean Platelet Volume 10.9 fL (7.4-10.4); Platelet Count 276 10^3/uL (130-400); Red Blood Cell Count 5.05 10^6/uL (4.70-6.10); Red Cell Dist. Width 12.2 % (11.5-14.5); White Blood Cell Count 10.8 10^3/uL (4.8-10.8)
--- NOTE | 2023-10-15 07:28 | W.PN.HOSP.TC ---
Today's Communication/Plan
-
Discharge to acute rehab today
Assessment / Plan
Assessment / Plan
#Recent acute�subacute infarcts
#Old infarcts
Appreciate neurology input, continue aspirin 81, atorvastatin 40 mg at bedtime
Neurology also recommends Plavix 75 mg daily for 21 days through 10/21/2023
PT/OT/SPL, continue treating hypertension and diabetes
PT had originally recommended acute rehab during previous hospitalization, however and patient wished to go home with home PT
Medically stable for discharge to acute rehab today
#Poststroke cognitive impairment
Per neurology, this could be a new baseline for him
#Benign essential hypertension
Continue amlodipine 10 mg daily, hydrochlorothiazide 25 mg daily, labetalol 100 mg twice a day, and Aldactone 25 mg daily
#Recently diagnosed type 2 diabetes, hemoglobin A1c 10.9
Continue home insulin regimen, metformin, continue sliding scale insulin, diabetes education
#Likely obstructive sleep apnea
Outpatient sleep study recommended
#Obesity due to excess calories
Affects all aspects of care
DVT prophylaxis Lovenox
Full code
Updated at bedside 10/13
Physical Exam
General: Obese, no acute distress
HEENT: Normocephalic, Atraumatic, EOMI, MMM
Respiratory: Clear to Auscultation bilaterally
Cardiac: Normal S1/S2, Regular Rate and Rhythm
GI: Soft, Nontender, Nondistended, Normal Bowel Sounds
Extremities: No Clubbing, Cyanosis, or Edema
Neuro: Slow to respond, intermittent aphasia noted, pleasantly confused
Psych: Calm, Cooperative
Derm: No Visible lesions
Anticipated Discharge: Today
Subjective/Interval History
-
Date of Service: October 15, 2023
No acute events. Aphasia improved. Still with memory impairment. No fever, no vomiting.
Objective Data
-
Labs:
Laboratory Results
10/15/23
06:23
WBC Pending
Hgb Pending
Hct Pending
Plt Count Pending
Sodium Pending
Potassium Pending
Chloride Pending
Carbon Dioxide Pending
BUN Pending
Creatinine Pending
Glucose Pending
Calcium Pending
Vital Signs:
Vital Signs
Temp Pulse Resp BP Pulse Ox
98.4 F 58 16 134/77 96
10/15/23 03:20 10/15/23 03:20 10/15/23 03:20 10/15/23 03:20 10/15/23 03:20
I&O
10/14/23 10/15/23 10/16/23
06:59 06:59 06:59
Intake Total 1160 / 1160 1320 / 1320
Balance 1160 / 1160 1320 / 1320
[2023-10-15 07:41] LABS: Blood Urea Nitrogen 35 mg/dl (9-20); Calcium 10.5 mg/dl (8.4-10.2); Carbon Dioxide 23 mmol/L (22-30); Chloride 98 mmol/L (98-107); Estimated Creatinine Clearance 60 ml/min; Glucose 117 mg/dl (70-99); Magnesium 1.9 mg/dl (1.6-2.3); Phosphorus 5.2 mg/dl (2.5-4.5); Potassium 4.4 mmol/L (3.5-5.1); Sodium 136 mmol/L (135-145); eGFR 47.52
[2023-10-15 07:42] LABS: Glucose - Point of Care 126 mg/dl (70-99)
[2023-10-15] MEDS: NOVOLOG FLEXPEN-LOW RESISTANCE SC (08:04)
[2023-10-15 08:15] VITALS: BP 161/81
[2023-10-15] MEDS: NOVOLOG FLEXPEN 6 UNITS SC (08:31)
[2023-10-15] MEDS: LOW STRENGTH ASPIRIN 81 MG PO (08:32)
[2023-10-15] MEDS: VITAMIN B1 100 MG PO (08:32)
[2023-10-15] MEDS: PLAVIX 75 MG PO (08:32)
[2023-10-15] MEDS: ORETIC 25 MG PO (08:32)
[2023-10-15] MEDS: DIOVAN 320 MG PO (08:32)
[2023-10-15] MEDS: MAGNESIUM OXIDE 500 MG PO (08:32)
[2023-10-15] MEDS: ALDACTONE 25 MG PO (08:32)
[2023-10-15] MEDS: NORVASC 10 MG PO (08:33)
[2023-10-15] MEDS: TRANDATE 100 MG PO (08:33)
[2023-10-15] MEDS: GLUCOPHAGE 500 MG PO (08:33)
--- NOTE | 2023-10-15 09:22 | CM ---
Reviewed chart, spoke with CM on case yesterday who set up transportation for patient to go to [place]. Called Ofelia in admissions at [facility] who confirmed bed for patient.
# For report [phone]
# [phone]
Patient set up for transport @ 11 per notes.
Will review IMM
Plan: Case management will continue to follow and assist with discharge planning. Patient will go to [facility].
[2023-10-15 09:48] VITALS: BP 112/80; PULSE 65; O2SAT 94
[2023-10-15 11:13] VITALS: BP 127/87
--- NOTE | 2023-10-15 13:57 | W.DCSUMMARY ---
Discharge Summary
Discharge Data
Date of Admission: 10/12/23
Date of Discharge: 10/15/23
-
Pending Results: No
Hospital Course
Discharge diagnosis:
Recent multiple acute subacute infarcts
Old infarcts
Posterior cognitive impairment
Poststroke intermittent aphasia
Benign essential hypertension
Recently diagnosed uncontrolled type 2 diabetes
Probable obstructive sleep apnea
Obesity due to excess calories
Consults: Neurology
Hospital course:
67-year-old male with a past medical history of recent stroke, hypertensive emergency, and newly diagnosed type 2 diabetes presents with recurrent intermittent confusion, and aphasia.
He was recently discharged on 10/07/2023, PT recommended acute rehab. However he and his family wished him to go home, and he was discharged home with outpatient PT.
Patient was seen in conjunction with neurology. EEG was negative for seizure, head CT negative for acute intracranial abnormalities. Neurology states he does not need a repeat MRI. Neurology recommends continuing Plavix through 10/21/2023,
continuing aspirin as well as statin. Neurology also recommends continuing to treat hypertension and diabetes.
Patient's blood pressure was controlled on his usual regimen, and his blood sugar was controlled on his insulin regimen.
Patient was seen in conjunction with PT/OT/SPL. His aphasia waxed and waned, but overall improved. He remains mildly confused. Neurology suspects that this may be his new baseline.
He is medically stable for discharge to acute rehab. He has been instructed to follow-up with his primary care doctor 1 week after he leaves rehab.
Disposition: Acute rehab
Discharge planning: Required 35 minutes
Discharge Plan
-
Patient Disposition: Acute Rehab Facility
Discharge Diagnosis/Procedures: Recent strokes with waxing waning aphasia, poststroke confusion, hypertension, diabetes, obesity
Condition: Fair
Diet: Low Fat, Low Cholesterol and Diabetic, Carb Controlled
Activity: As tolerated
Activity Restrictions/Additional Instructions:
Take Plavix 75 mg daily for 21 days through 10/21/2023.
Follow-up with your primary care doctor 1 week after you leave rehab.
Referrals:
Toni Goldberg MD [Family Provider] - in one week
Prescriptions:
New
thiamine HCl (vitamin B1) 100 mg Tablet
100 mg PO DAILY Qty: 0 0RF
Continued
spironolactone 25 mg Tablet
25 mg PO DAILY 30 Days Qty: 30 0RF
valsartan 320 mg tablet
320 mg PO DAILY 30 Days Qty: 30 0RF
metformin 500 mg Tablet
500 mg PO BID@0800,1700 30 Days Qty: 60 0RF
atorvastatin 40 mg Tablet
40 mg PO QPM 30 Days Qty: 30 0RF
amlodipine 10 mg Tablet
10 mg PO DAILY 30 Days Qty: 30 0RF
magnesium oxide 500 mg magnesium Tablet
500 mg PO DAILY 30 Days Qty: 30 0RF
aspirin [Children's Aspirin] 81 mg Tablet,Chewable
81 mg PO DAILY 30 Days Qty: 30 0RF
hydrochlorothiazide 25 mg Tablet
25 mg PO DAILY 30 Days Qty: 30 0RF
labetalol 100 mg Tablet
100 mg PO BID 30 Days Qty: 60 0RF
bismuth subsalicylate [Pepto-Bismol] 262 mg Tablet,Chewable
2 tab PO Q1HPRN PRN (Reason: stomach issues)
insulin aspart U-100 100 unit/mL (3 mL) insulin pen
6 unit SC AC
insulin glargine [Lantus Solostar U-100 Insulin] 100 unit/mL (3 mL) insulin pen
8 unit SC HS
clopidogrel 75 mg Tablet
75 mg PO DAILY 7 Days Qty: 7 0RF
Rx Instructions:
continue through 10/21/23 then stop
Discharge Orders:
Discharge Patient (As Directed); Ordered 10/14/23
Ordered By: Markell Tran
Discharge Date and Time
Discharge Date/Time: 10/15/23 11:53
Print Language: CHINESE
== END 2023-10-15 11:53 ==
LOC: 3 WEST ACU 16:07
PROVIDERS: Registered Nurse; ADMITTING PHYSICIAN Family Medicine; CONSULT PHYSICIAN Student in an Organized Health Care Education/Training Program; EMERGENCY PHYSICIAN Emergency Medicine; FAMILY PHYSICIAN Internal Medicine
DX: R41.82 Altered mental status, unspecified (principal); R47.01 Aphasia; R53.1 Weakness; I16.1 Hypertensive emergency; E11.65 Type 2 diabetes mellitus with hyperglycemia; I10 Essential (primary) hypertension; I69.319 Unspecified symptoms and signs involving cognitive functions following cerebral infarction; D72.829 Elevated white blood cell count, unspecified; N17.9 Acute kidney failure, unspecified; E78.5 Hyperlipidemia, unspecified; E66.09 Other obesity due to excess calories; I70.90 Unspecified atherosclerosis; Z79.4 Long term (current) use of insulin; Z79.84 Long term (current) use of oral hypoglycemic drugs; Z79.02 Long term (current) use of antithrombotics/antiplatelets; Z79.82 Long term (current) use of aspirin; Z87.891 Personal history of nicotine dependence; Z68.36 Body mass index [BMI] 36.0-36.9, adult
CPT/HCPCS: 70450; 80048; 80053; 80061; 81003; 82962; 83735; 84100; 85025; 85027; 85610; 85730; 92523; 92610; 93005; 95816; 97116; 97163; 97167; 97530; 97535; 99285; G0378

== ENCOUNTER 2023-12-09 08:34 | Outpatient (RCR) | payer MEDICARE, OTHER, SELFPAY | END 2023-12-09 23:59 | disposition home or self-care (01) | LOC: RST 08:34 | PROVIDERS: ATTENDING PHYSICIAN Physician Assistant; FAMILY PHYSICIAN Internal Medicine | DX: I69.398 Other sequelae of cerebral infarction (principal); Z73.6 Limitation of activities due to disability; I69.318 Other symptoms and signs involving cognitive functions following cerebral infarction | CPT/HCPCS: 96125; 97110; 97112; 97129; 97130; 97162; 97167; 97530; 97535 ==

== ENCOUNTER → 2023-12-14 12:00 | Outpatient (REF) | payer MEDICARE, OTHER, SELFPAY | LOC: DHSLP 12:00 | PROVIDERS: ATTENDING PHYSICIAN Psychiatry & Neurology Neurology; FAMILY PHYSICIAN Internal Medicine | DX: G47.33 Obstructive sleep apnea (adult) (pediatric) (principal); R09.02 Hypoxemia | CPT/HCPCS: 95800 ==

== ENCOUNTER 2024-01-07 12:41 | Outpatient (RCR) | payer MEDICARE, OTHER, SELFPAY | END 2024-01-07 23:59 | disposition home or self-care (01) | LOC: RPT 12:41 | PROVIDERS: ATTENDING PHYSICIAN Physician Assistant; FAMILY PHYSICIAN Internal Medicine | DX: I69.398 Other sequelae of cerebral infarction (principal); Z73.6 Limitation of activities due to disability; I69.318 Other symptoms and signs involving cognitive functions following cerebral infarction | CPT/HCPCS: 97110; 97112; 97129; 97130; 97530; 97535; 97537 ==

== ENCOUNTER 2024-02-05 09:23 | Outpatient (RCR) | payer MEDICARE, OTHER, SELFPAY | END 2024-02-05 23:59 | disposition home or self-care (01) | LOC: RPT 09:23 | PROVIDERS: ATTENDING PHYSICIAN Physician Assistant; FAMILY PHYSICIAN Internal Medicine | DX: I69.398 Other sequelae of cerebral infarction (principal); Z73.6 Limitation of activities due to disability; I69.318 Other symptoms and signs involving cognitive functions following cerebral infarction | CPT/HCPCS: 97110; 97129; 97130; 97530; 97535; 97537 ==

== ENCOUNTER 2024-03-08 06:22 | Outpatient (RCR) | payer MEDICARE, OTHER, SELFPAY | END 2024-03-08 13:36 | disposition home or self-care (01) | LOC: RPT 06:22 | PROVIDERS: ATTENDING PHYSICIAN Physician Assistant; FAMILY PHYSICIAN Internal Medicine | DX: I69.318 Other symptoms and signs involving cognitive functions following cerebral infarction (principal) | CPT/HCPCS: 97129; 97130; 97530; 97535; 97537 ==